=== PATIENT | female | born 1940 | race Hispanic/Latino ===

== ENCOUNTER 2019-01-09 08:41 | Day surgery (SDC) | payer OTHER ==
--- OUTSIDE RECORDS SUMMARY | 2019-01-09 09:07 | XMS REPORT | Clinical Summary ---
:1940 Author Organization [facility] Address [address] [place] [address] Care Team Providers Name Role Phone Samm Mesa MD Primary Care Provider Allergies Active Allergy Reactions Severity Noted Date Comments Propoxyphene Itching High 11/11/2015 Medications Medication Sig Dispensed Refills Start Date End Date Status BONIVA 150 mg tablet TAKE BY MOUTH 1 3 08/20/2018 Active TABLET EVERY MONTH levothyroxine Take 75 mcg by 3 08/11/2018 Active (SYNTHROID, LEVOXYL) mouth daily. 75 mcg tablet BYSTOLIC 10 mg tablet Take 10 mg by 3 08/19/2018 Active mouth daily. omeprazole (PriLOSEC) Take by mouth 3 08/19/2018 Active 40 MG capsule daily. triamcinolone APPLY TO AFFECTED 2 08/29/2018 Active (KENALOG) 0.5 % cream AREA TWICE A DAY venlafaxine XR Take 75 mg by 3 09/24/2018 Active (EFFEXOR-XR) 75 MG 24 mouth daily. hr capsule bimatoprost (LUMIGAN) Administer 1 drop 0 Active 0.01 % ophthalmic to both eyes drops nightly. timolol (BETIMOL) 0.5 Administer 1 drop 10 mL 2 10/15/2018 Active % ophthalmic solution to both eyes 2 (two) times a day. Active Problems Problem Noted Date Primary open angle glaucoma (POAG) of both eyes, moderate stage 10/15/2018 Ileus, postoperative 11/17/2015 Abdominal pain 11/11/2015 Parastomal hernia with obstruction and without gangrene 11/11/2015 Electrolyte and fluid disorder 11/11/2015 Encounters Date Type Specialty Care Team Description 10/15/2018 Office Visit Ophthalmology Carrie Figueroa, Primary open angle glaucoma (POAG) of both eyes, moderate stage; Primary open angle glaucoma of both eyes, unspecified glaucoma stage after 01/08/2018 Social History Tobacco Use Types Packs/Day Years Used Date Never Smoker Smokeless Tobacco: Never Used Tobacco Cessation: Counseling Given: No Alcohol Use Drinks/Week oz/Week Comments Yes 2 Glasses of wine 1.2 Sex Assigned at Date Recorded Not on file Job Start Date Occupation Industry Not on file Not on file Not on file Travel History Travel Start Travel End No recent travel history available. Last Filed Vital Signs Not on file Plan of Treatment Health Maintenance Due Date Last Done Comments SHINGLES VACCINES (#1) 1988 65+ PNEUMOCOCCAL VACCINE (1 of 2 - PCV13) 10/25/2003 INFLUENZA VACCINE 12/27/2018 Implants Implanted - Out Type Area Banking Assistant Device Identifier Shelf Expiration Model / of Service Date Serial / Lot None Procedures Procedure Name Priority Date/Time Associated Diagnosis Comments OCT, OPTIC NERVE - Routine 10/15/2018 10:35 AM Primary open angle Results for this OU - BOTH EYES CDT glaucoma (POAG) of procedure are in both eyes, moderate the results stage section. AUTOMATED VISUAL Routine 10/15/2018 10:35 AM Primary open angle Results for this FIELD, EXTENDED - CDT glaucoma of both procedure are in OU - BOTH EYES eyes, unspecified the results glaucoma stage section. after 01/08/2018 Results OCT, Optic Nerve - OU (10/15/2018 10:35 AM CDT) Specimen Narrative Performed At Right Eye Reliability was good. Temporal thickness was normal. Superior thickness was normal. Nasal thickness was normal. Inferior thickness was showing abnormal thinning. Left Eye Reliability was good. Temporal thickness was normal. Superior thickness was normal. Nasal thickness was normal. Inferior thickness was normal. Automated Visual Field, Extended - OU (10/15/2018 10:35 AM CDT) Specimen Narrative Performed At Right Eye Threshold was 24-2. Strategy was PEPE. Findings include superior arcuate defect. Left Eye Threshold was 24-2. Strategy was PEPE. Findings include superior arcuate defect. Notes Possible lid defect OU after 01/08/2018 Insurance Payer Benefit Plan / Subscriber ID Effective Dates Phone Address Type Group MEDICARE MEDICARE PART A AND xxxxxxxxxxx 2003-[place], [place] Medicare B t AETNA AETNA [facility] xxxxxxxxxx 2002-[place] oneal Advance Directives Patient has advance care planning documents on file. For more information, please contact:Jeyson Thakkar[address] [place] [address]
--- OUTSIDE RECORDS SUMMARY | 2019-01-09 09:08 | XMS REPORT | Continuity of Care Document ---
:1940 Author Organization [employer] Care Team Providers Name Role Phone [employer] Unavailable Unavailable Problems Problem Status Onset Classification Date Comments Source Date Reported DDC - F/UP AB Active [facility] DDC-EGD Active [address] ABDMNAL PAIN Active [facility] ABDMNAL PAIN Active [facility] ROUTINE MEDICAL Active [facility] Medications No Data Provided for This Section Allergies, Adverse Reactions, Alerts No Known Medication Allergies Immunizations No Data Provided for This Section Results No Data Provided for This Section Pathology Reports No Data Provided for This Section Diagnostic Reports No Data Provided for This Section Consultation Notes No Data Provided for This Section Discharge Summaries No Data Provided for This Section History and Physicals No Data Provided for This Section Vital Signs No Data Provided for This Section Encounters Location Location Encounter Encounter Reason Attending ADM DC Status Source Details Type Number For Provider Date Date Visit [facility] Outpatient [id number] DDC-EGD [place] 09/28 09/28 Active [facility] Outpatient [id number] DDC - [place] 10/11 Active [facility] Medical F/UP AB [facility] PAIN Center [facility] Outpatient [id number] DDC - [place] 12/19 Active [facility] Medical F/UP AB [facility] PAIN Center Procedures No Data Provided for This Section Assessment and Plan No Data Provided for This Section Plan of Care No Data Provided for This Section Social History No Data Provided for This Section Family History No Data Provided for This Section Advance Directives No Data Provided for This Section Functional Status No Data Provided for This Section
[2019-01-09] MEDS ORDERED: Ringers Lactate 1,000 ML IV ONE (09:11)
[2019-01-09] MEDS ORDERED: NA CHLORIDE 0.9% 1,000 ML ONE (09:52)
[2019-01-09] MEDS ORDERED: FENTANYL CITR 100 MCG/2 ML ONE (09:55)
[2019-01-09] MEDS ORDERED: PROPOFOL 200 MG/20 ML VIAL IV ONE (09:55)
[2019-01-09] MEDS ORDERED: LIDOCAINE 2% MPF 5 ML VIAL ONE (09:55)
[2019-01-09] MEDS: LIDOCAINE 1% W/EPI 1:100,000 MDV 20 ML VIAL ONE ×2 (09:57→10:24)
[2019-01-09 12:57] VITALS: BP 150/65
[2019-01-09 13:27] VITALS: TEMP 98; O2SAT 98
--- NOTE | 2019-01-10 04:44 | OP ---
Date of Procedure: 01/09/2019 Surgeon: Meka Bolivar MD [employer] Heater: No assistants. Preoperative Diagnosis: Postmenopausal bleeding and thickened endometrium. Postoperative Diagnosis: Postmenopausal bleeding. Procedures Performed: Hysteroscopy and endometrial sampling. Complications: None. Drains: None. Anesthesia: MAC and cervical block. Findings: Endometrial cavity was completely empty. Endometrium appeared to be unremarkable and thin . Endometrial sampling or D and C was performed with the help of an endometrial biopsy Pipelle, as I was not able to dilate the cervix enough to perform a curettings with even a 0 curette. The cervix appeared to be extremely high. She is status post colpopexy and posterior repair. The cervix was no t only stenotic, but curved enough that I was unable to dilate her safely. Patient is an 78-year-old with postmenopausal bleeding, referred to me for evaluation. An ultrasound showed thickened endometrium. She had medical clearance for performance of this procedure. We were able to consent her for a hysteroscopy, and D and C. It was extremely difficult to even perform an adequate exam in the office with this patient most likely due to her atrophic condition, stenotic cer vix, and also a good pelvic floor support. After informed consent was verified in the preop, she was taken back to the OR, placed in a supine fa shion on the operating table. MAC was given. She was placed in a dorsal lithotomy position. After she was placed in dorsal lithotomy using Jose Manuel stirrups, pelvic exam performed. The point C was at - 7. The opening of the vaginal introitus about 2-3 cm. So a Taylor speculum was placed. It was diffic ult to find and hold the cervix. So a long Whipple was used after exposing the cervix, anterior li p injected with 1% lidocaine mixed with 1:100,000 epinephrine 10 mL. Anterior lip grasped with a sin gle-tooth tenaculum. Then, a SlimLine diagnostic hysteroscope, 30-degree lens normal saline was used for distention. After passing through the cervical canal under direct vision, uterine cavity was en tered. This was curved as it dipped down and was anteflexed. The cavity completely unremarkable, no intracavitary lesions, both tubal ostia visualized, scope was pulled out, attempt was made to dilate this patient, it was extremely difficult due to the angle of the vaginal canal and then the cervical canal. After attempting to dilate it, I only was successful to open it to 7-Vincentian. So at this poi nt, I decided that sampling is important. After letting aspirating the fluid, I was able to put in a n endometrial biopsy Pipelle as the 0 curette would not fit and/or it would not negotiate the curve. The Pipelle was used to perform endometrial sampling and once this was done, all that was scanned. This was all I could get after 3 passes. This was handed out for permanent pathology. Instruments w ere removed. Instrument, needle, and sponge counts were done and were correct at the end of the case . Patient tolerated the procedure well. She was recovered from anesthesia in the OR and taken to [facility] in stable condition. She has a 1 week followup. If the biopsy is negative, then I would consider that. Her reason for postmenopausal bleeding is either vaginal atrophy or any atrophic endometrium. Both benign causes and no further investigation at this time. No pyometra was suspected even on en try into the uterine cavity. TIFFANY/TATI Voice ID: [id number] Report ID: [id number]
== END 2019-01-09 13:45 | disposition home or self-care (01) ==
LOC: OR 08:41
PROVIDERS: ATTEND Obstetrics & Gynecology
PROC: 0UJD8ZZ Inspection of Uterus and Cervix, Via Natural or Artificial Opening Endoscopic (ICD-10-PCS; 2019-01-09)
PROC: 0UDB7ZX Extraction of Endometrium, Via Natural or Artificial Opening, Diagnostic (ICD-10-PCS; principal; 2019-01-09 10:30)
DX: N95.0 Postmenopausal bleeding (principal); N88.2 Stricture and stenosis of cervix uteri; R93.89 Abnormal findings on diagnostic imaging of other specified body structures; I10 Essential (primary) hypertension; E78.00 Pure hypercholesterolemia, unspecified; K21.9 Gastro-esophageal reflux disease without esophagitis; E07.9 Disorder of thyroid, unspecified; M19.90 Unspecified osteoarthritis, unspecified site; F32.9 Major depressive disorder, single episode, unspecified; Z85.038 Personal history of other malignant neoplasm of large intestine; Z86.73 Personal history of transient ischemic attack (TIA), and cerebral infarction without residual deficits
CPT/HCPCS: 88305; 58558; J2704; J3010; J7030

== ENCOUNTER 2019-06-15 10:25 | Emergency (ER) | payer OTHER ==
--- NOTE | 2019-06-15 12:29 | RAD REPORT ---
EXAM DESCRIPTION: RAD - Hip Left 2 View - 06/15/2019 12:21 pm CLINICAL HISTORY: PAIN COMPARISON: Hip Left 2 View dated 03/20/2009 FINDINGS: Mild osteoarthritis involves the left hip. No evidence of fracture, dislocation or AVN.
--- NOTE | 2019-06-15 13:02 | ER ---
Nurse's Notes [facility] Name: Ambar Jay Age: 78 yrs Sex: Female : 1940 Arrival Date: 06/15/2019 Time: 10:28 Bed 27 Private MD: Diagnosis: Other specified arthritis, left hip Presentation: 06/15 10:40 Presenting complaint: Patient states: left hip started hurting , denies injury, iw can hardly walk now. Transition of care: patient was not received from another setting of care. Onset of symptoms was June 13, 2019. Risk Assessment: Do you want to hurt yourself or someone else? Patient reports no desire to harm self or others. Initial Sepsis Screen: Does the patient meet any 2 criteria? No. Patient's initial sepsis screen is negative. Does the patient have a suspected source of infection? No. Patient's initial sepsis screen is negative. Care prior to arrival: None. 10:40 Method Of Arrival: Wheelchair iw 10:40 Acuity: ANTWAN 4 iw Historical: - Allergies: 10:43 Darvon; iw - Home Meds: 10:43 Bystolic 10 mg Oral tab 1 tab twice a day [Active]; levothyroxine 75 mcg tab 1 tab once iw daily [Active]; Nexium 40 mg Oral cpDR 1 cap once daily [Active]; venlafaxine 75 mg oral tab 1 tab 2 times per day [Active]; Boniva 150 mg Oral tab 1 tab once moly [Active]; eye drops [Active]; - PMHx: 10:43 colon cancer; Depression; GERD; Glaucoma; Hypertension; Hypothyroidism; iw - PSHx: 10:43 Colostomy(2007); Hernia repair; colostomy moved; iw - Immunization history:: Adult Immunizations Adult Immunizations up to date. - Social history:: Smoking status: Patient denies any tobacco usage or history of. Patient/guardian denies using alcohol, street drugs, The patient lives with family. - Ebola Screening: : Patient negative for fever greater than or equal to 101.5 degrees Fahrenheit, and additional compatible Ebola Virus Disease symptoms Patient denies exposure to infectious person Patient denies travel to an Ebola-affected area in the 21 days before illness onset No symptoms or risks identified at this time. - Family history:: not pertinent. Screenin:30 Abuse screen: Denies threats or abuse. Denies injuries from another. Nutritional aj1 screening: No deficits noted. Tuberculosis screening: No symptoms or risk factors identified. 13:41 Fall Risk None identified. aj1 Assessment: 11:30 General: Appears in no apparent distress. uncomfortable, Behavior is calm, cooperative, aj1 appropriate for age. Pain: Complains of pain in left hip and left leg. Neuro: Level of Consciousness is awake, alert, obeys commands. Cardiovascular: Patient's skin is warm and dry. Respiratory: Airway is patent Respiratory effort is even, unlabored, Respiratory pattern is regular, symmetrical. GI: No signs and/or symptoms were reported involving the gastrointestinal system. : No signs and/or symptoms were reported regarding the genitourinary system. EENT: No signs and/or symptoms were reported regarding the EENT system. Derm: No signs and/or symptoms reported regarding the dermatologic system. Skin is pink, warm \T\ dry. normal. Musculoskeletal: Range of motion: limited in left hip. 12:30 Reassessment: Patient appears in no apparent distress at this time. No changes from aj1 previously documented assessment. Patient and/or family updated on plan of care and expected duration. Pain level reassessed. Patient is alert, oriented x 3, equal unlabored respirations, skin warm/dry/pink. 13:15 Reassessment: Patient appears in no apparent distress at this time. No changes from aj1 previously documented assessment. Patient and/or family updated on plan of care and expected duration. Pain level reassessed. Patient is alert, oriented x 3, equal unlabored respirations, skin warm/dry/pink. Vital Signs: 10:43 BP 126 / 69; Pulse 77; Resp 16; Temp 97.8; Pulse Ox 99% on R/A; Weight 63.5 kg; Height iw 5 ft. (152.40 cm); Pain 7/10; 10:43 Body Mass Index 27.34 (63.50 kg, 152.40 cm) iw ED Course: 10:28 Patient arrived in ED. rg4 10:41 Triage completed. iw 10:43 Arm band placed on. iw 11:25 Scott Diaz MD is Attending Physician. ma2 11:30 Patient has correct armband on for positive identification. Bed in low position. Call aj1 light in reach. 11:30 No provider procedures requiring assistance completed. aj1 12:22 Hip Left 2 View XRAY In Process Unspecified. EDMS 12:56 Rosa Travis, RN is Primary Nurse. aj1 13:41 Patient did not have IV access during this emergency room visit. aj1 Administered Medications: 13:15 Drug: TORadol 60 mg Route: IM; Site: left gluteus; aj1 Outcome: 13:01 Discharge ordered by . dandy 13:41 Discharged to home via wheelchair, with family. aj1 13:41 Condition: good 13:41 Discharge instructions given to patient, family, Instructed on discharge instructions, follow up and referral plans. no drinking with medication, no driving heavy equipment, medication usage, Demonstrated understanding of instructions, follow-up care, medications, Prescriptions given X 2. 13:41 Patient left the ED. aj1 Signatures: Dispatcher [employer] EDNY Rosa Travis, RN HÉCTOR aj1 Bailey York RN RN iw Garcia, Rubi rg4 Scott Diaz MD MD ma2
--- NOTE | 2019-06-15 13:02 | EDPHYS ---
Physician Documentation [facility] Name: Ambar Jay Age: 78 yrs Sex: Female : 1940 Arrival Date: 06/15/2019 Time: 10:28 Bed 27 Private MD: ED Physician Scott Diaz HPI: 06/15 12:55 This 78 yrs old Female presents to ER via Wheelchair with complaints of Hip ma2 Pain. 12:55 The patient or guardian reports pain. The complaints affect the left leg. Onset: The ma2 symptoms/episode began/occurred gradually, 1 week(s) ago. Severity of symptoms: At their worst the symptoms were mild, in the emergency department the symptoms are unchanged. The patient has not experienced similar symptoms in the past. Historical: - Allergies: 10:43 Darvon; iw - Home Meds: 10:43 Bystolic 10 mg Oral tab 1 tab twice a day [Active]; levothyroxine 75 mcg tab 1 tab once iw daily [Active]; Nexium 40 mg Oral cpDR 1 cap once daily [Active]; venlafaxine 75 mg oral tab 1 tab 2 times per day [Active]; Boniva 150 mg Oral tab 1 tab once moly [Active]; eye drops [Active]; - PMHx: 10:43 colon cancer; Depression; GERD; Glaucoma; Hypertension; Hypothyroidism; iw - PSHx: 10:43 Colostomy(2007); Hernia repair; colostomy moved; iw - Immunization history:: Adult Immunizations Adult Immunizations up to date. - Social history:: Smoking status: Patient denies any tobacco usage or history of. Patient/guardian denies using alcohol, street drugs, The patient lives with family. - Ebola Screening: : Patient negative for fever greater than or equal to 101.5 degrees Fahrenheit, and additional compatible Ebola Virus Disease symptoms Patient denies exposure to infectious person Patient denies travel to an Ebola-affected area in the 21 days before illness onset No symptoms or risks identified at this time. - Family history:: not pertinent. ROS: 12:55 Constitutional: Negative for fever, chills, and weight loss. ma2 12:55 All other systems are negative. Exam: 12:55 Constitutional: This is a well developed, well nourished patient who is awake, alert, ma2 and in no acute distress. Chest/axilla: Normal chest wall appearance and motion. Nontender with no deformity. No lesions are appreciated. Cardiovascular: Regular rate and rhythm with a normal S1 and S2. No gallops, murmurs, or rubs. Normal PMI, no JVD. No pulse deficits. Respiratory: Lungs have equal breath sounds bilaterally, clear to auscultation and percussion. No rales, rhonchi or wheezes noted. No increased work of breathing, no retractions or nasal flaring. Abdomen/GI: Soft, non-tender, with normal bowel sounds. No distension or tympany. No guarding or rebound. No evidence of tenderness throughout. MS/ Extremity: Pulses equal, no cyanosis. Neurovascular intact. Full, normal range of motion. 12:55 Neuro: Awake and alert, GCS 15, oriented to person, place, time, and situation. ma2 Cranial nerves II-XII grossly intact. Motor strength 5/5 in all extremities. Sensory grossly intact. Cerebellar exam normal. Normal gait. Vital Signs: 10:43 BP 126 / 69; Pulse 77; Resp 16; Temp 97.8; Pulse Ox 99% on R/A; Weight 63.5 kg; Height iw 5 ft. (152.40 cm); Pain 7/10; 10:43 Body Mass Index 27.34 (63.50 kg, 152.40 cm) iw MDM: 11:25 Patient medically screened. ma2 12:55 Differential diagnosis: femoral shaft fracture, bursitis, arthritis, arthritis of hip. ma2 12:55 Data reviewed: vital signs, nurses notes, radiologic studies. Counseling: I had a ma2 detailed discussion with the patient and/or guardian regarding: the historical points, exam findings, and any diagnostic results supporting the discharge/admit diagnosis, the presence of at least one elevated blood pressure reading (>120/80) during this emergency department visit, the need for outpatient follow up. Response to treatment: the patient's symptoms have markedly improved after treatment. 06/15 11:27 Order name: Hip Left 2 View XRAY; Complete Time: 12:40 ma2 Administered Medications: 13:15 Drug: TORadol 60 mg Route: IM; Site: left gluteus; aj1 Disposition: 06/15/19 13:01 Discharged to Home. Impression: Other specified arthritis, left hip. - Condition is Stable. - Discharge Instructions: Arthritis. - Prescriptions for Tylenol- Codeine #3 300-30 mg Oral Tablet - take 2 tablet by ORAL route every 6 hours As needed; 30 tablet. Medrol (Evaristo) 4 mg Oral Tablets, Dose Pack - take 1 tablet by ORAL route as directed - follow package instructions; 1 packet. - Medication Reconciliation Form, Thank You Letter, Antibiotic Education, Prescription Opioid Use form. - Follow up: Private Physician; When: Today; Reason: If symptoms return, Continuance of care. Signatures: Dispatcher [employer] EDRosa Leal RN RN aj1 Bailey York RN RN iw Scott Diaz MD MD ma2 Corrections: (The following items were deleted from the chart) 13:41 13:01 06/15/2019 13:01 Discharged to Home. Impression: Other specified arthritis, left aj1 hip. Condition is Stable. Forms are Medication Reconciliation Form, Thank You Letter, Antibiotic Education, Prescription Opioid Use. Follow up: Private Physician; When: Today; Reason: If symptoms return, Continuance of care. ma2
[2019-06-15] MEDS ORDERED: KETOROLAC 30 MG/ML INJ ONE (13:15)
[2019-06-15 13:46] VITALS: BP 126/69; TEMP 97.8; O2SAT 99
== END 2019-06-15 13:41 | disposition home or self-care (01) ==
LOC: ER 10:25
DX: M13.852 Other specified arthritis, left hip (principal); I10 Essential (primary) hypertension; E03.9 Hypothyroidism, unspecified; K21.9 Gastro-esophageal reflux disease without esophagitis; F32.9 Major depressive disorder, single episode, unspecified; Z85.038 Personal history of other malignant neoplasm of large intestine; Z88.8 Allergy status to other drugs, medicaments and biological substances
CPT/HCPCS: 96372; 99283

== ENCOUNTER 2019-11-30 12:24 | Inpatient (IN) | payer OTHER ==
--- OUTSIDE RECORDS SUMMARY | 2019-11-30 12:27 | XMS REPORT | Clinical Summary ---
:1940 Author Organization [facility] Address [address] [place] [address] Care Team Providers Name Role Phone MD Bonita Primary Care Provider Allergies Active Allergy Reactions Severity Noted Date Comments Propoxyphene Itching High 11/11/2015 Medications Medication Sig Dispensed Refills Start Date End Date Status BONIVA 150 mg TAKE BY MOUTH 1 3 08/20/2018 Active tablet TABLET EVERY MONTH levothyroxine Take 75 mcg by 3 08/11/2018 Active (SYNTHROID, mouth daily. LEVOXYL) 75 mcg tablet BYSTOLIC 10 mg Take 10 mg by 3 08/19/2018 Active tablet mouth daily. omeprazole Take by mouth 3 08/19/2018 Acti ve (PriLOSEC) 40 MG daily. capsule triamcinolone APPLY TO 2 08/29/2018 Activ e (KENALOG) 0.5 % AFFECTED AREA cream TWICE A DAY venlafaxine XR Take 75 mg by 3 09/24/2018 Active (EFFEXOR-XR) 75 MG mouth daily. 24 hr capsule bimatoprost Administer 1 0 Activ e (LUMIGAN) 0.01 % drop to both ophthalmic drops eyes nightly. timolol (TIMOPTIC) INSTILL 1 DROP 30 mL 0 01/17/2019 Active 0.5 % ophthalmic TO BOTH EYES 2 solution TIMES A DAY timolol (BETIMOL) Administer 1 10 mL 2 10/15/2018 01/18/20 Discontinued 0.5 % ophthalmic drop to both 19 (Reorder) solution eyes 2 (two) times a day. Active Problems Problem Noted Date Primary open angle glaucoma (POAG) of both eyes, moder ate stage 10/15/2018 Ileus, postoperative 11/17/2015 Abdominal pain 11/11/2015 Parastomal hernia with obstruction and without gangren e 11/11/2015 Electrolyte and fluid disorder 11/11/2015 Encounters Date Type Specialty Care Team Description 01/17/2019 Refill Ophthalmology Figueroa, Carrie Claros MD after 11/29/2018 Social History Tobacco Use Types Packs/Day Years Used Date Never Smoker Smokeless Tobacco: Never Used Tobacco Cessation: Counseling Given: No Alcohol Use Drinks/Week oz/Week Comments Yes 2 Glasses of wine 2.0 Sex Assigned at Date Recorded Not on [...] of 2 - PCV13) 10/25/2003 INFLUENZA VACCINE 12/28/2019 Implants Implanted - Out Type Area Last Model Maker Device Identifier She lf Expiration Model / of Service Date Serial / Lot None Results Not on fileafter 11/29/2018 Insurance Payer Benefit Plan / Subscriber ID Effective Dates Phone Addre ss Type Group MEDICARE MEDICARE PART A AND xxxxxxxxxxx 2003-[place] [facility], [place] Medicare B t AETNA AETNA [facility] xxxxxxxxxx 2002-[place] Indemnity INDEMNITY t Advance Directives For more information, please contact: [phone] Type Date Recorded 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
--- OUTSIDE RECORDS SUMMARY | 2019-11-30 12:27 | XMS REPORT | Continuity of Care Document ---
:1940 Author Organization [employer] Care Team Providers Name Role Phone [employer] Unavailable Un available Problems Problem Status Onset Classification Date Comments Sourc e Date Reported DDC - F/UP AB Active [facility] DDC-EGD Active [address] ABDMNAL PAIN Active [facility] ROUTINE MEDICAL Active [facility] ABDMNAL PAIN Active [facility] Medications No Data Provided for This Section [...] Location Location Encounter Encounter Reason Attending ADM PA Stat us Source Details Type Number For Provider Date Date Visit [facility] Outpatient [id number] DDC-EGD [place] 09/28 09/28 [facility] Outpatient [id number] DDC - [place] 10/11 Activ e [facility] Medical F/UP AB [facility] Outpatient [id number] DDC - [place] 12/19 Activ e [facility] Medical F/UP AB [facility] Procedures No Data Provided [...]
--- NOTE | 2019-11-30 13:44 | RAD REPORT ---
EXAM DESCRIPTION: RAD - Chest Single View - 11/30/2019 1:35 pm CLINICAL HISTORY: generalized weakness Chest pain. COMPARISON: Chest Pa And Lat (2 Views) dated 11/01/2018; Chest Pa And Lat (2 Views) dated 05/11/2017; CHEST SINGLE VIEW dated 08/29/2013; CHEST SINGLE VIEW dated 08/04/2008 FINDINGS: Portable technique limits examination quality. The lungs are grossly clear. The heart is normal in size. No displaced fractures. IMPRESSION: No acute intrathoracic process suspected.
[2019-11-30 14:02] LABS: Absolute Lymphocytes (CBC) 0.6 K/uL (0.7-4.9); Basophils % 0.3 % (0-1.3); Lymphocytes % 9.8 % (15.3-44.8); MPV 10.2 fL (7.6-11.3); RBC Red Blood Cell Count 4.37 M/uL (3.86-4.86)
[2019-11-30] MEDS ORDERED: NA CHLORIDE 0.9% 1,000 ML ONE (14:21)
[2019-11-30] MEDS ORDERED: ACETAMINOPHEN 325 MG TABLET ONE (14:21)
[2019-11-30 14:35] LABS: Albumin 4.3 g/dL (3.4-5.0); Bilirubin Total 0.4 mg/dL (0.2-1.0); Protein, Total 9.1 g/dL (6.4-8.2)
[2019-11-30 14:37] LABS: Potassium 5.6 mmol/L (3.5-5.1)
--- NOTE | 2019-11-30 15:47 | RAD REPORT ---
EXAM DESCRIPTION: CT - Abdomen Pelvis Wo Contrast - 11/30/2019 3:36 pm CLINICAL HISTORY: Abdominal pain. dehydration, acute kidney injury COMPARISON: Abdomen Pelvis W Contrast dated 11/11/2015; Lumbar Spine Wo Con dated 07/12/2019 TECHNIQUE: CT imaging of the abdomen and pelvis was performed without contrast. Solid organ, bowel a nd vascular assessment is limited due to lack of IV and oral contrast. All CT scans are performed using dose optimization technique as appropriate and may include automated exposure control or mA/KV adjustment according to patient size. FINDINGS: The lower lung nuñez are clear.Cholecystectomy clips. The liver, spleen, pancreas, adrenal glands and kidneys are within normal limits for a limited non-co ntrast examination. No bowel obstruction, free air, free fluid or abscess. Left lower quadrant ostomy noted. Right hemico lectomy changes are present. Mild compression deformity of superior endplate of L2 is noted with sclerosis, likely subacute or chr onic.Moderate lumbosacral degenerative changes. IMPRESSION: No acute intra-abdominal or pelvic findings. A limited non-contrast examination was performed as detailed.
[2019-11-30 16:14] LABS: Urine Blood NEGATIVE (NEG); Urine Glucose NEGATIVE (NEG); Urine Protein 2+ (NEG); Urine Specific Gravity 1.025 (1.005-1.030); Urine pH 5.5 (5.0-7.0)
[2019-11-30 16:16] LABS: Urine Bacteria 20-50 /HPF (<20); Urine Culture Reflex Order REFLEXED; Urine RBC NONE SEEN /HPF (NONE SEEN)
--- NOTE | 2019-11-30 16:32 | EDPHYS ---
Physician Documentation [facility] Name: Ambar Jay Age: 79 yrs Sex: Female : 1940 Arrival Date: 11/30/2019 Time: 12:26 Bed External Waiting [facility] MD: ED Physician Scott Diaz HPI: 11/29 13:15 This 79 yrs old Female presents to ER via EMS with complaints of General pm1 Weakness. 13:15 The patient's problem is reported as weakness, that is generalized. Onset: The pm1 symptoms/episode began/occurred 2-3 days. Context: Possible contributing factors include: sore throat with decreased PO fluid and food intake. The symptoms are alleviated by nothing. The symptoms are aggravated by nothing. Associated signs and symptoms: Pertinent positives: cramping to bilateral legs from thighs to calves for the past 2-3 days. Generalized weakness and pain to bilateral legs for multiple months, Pertinent negatives: cough, shortness of breath, N/V/D, abdominal pain. Patient's baseline: Neuro: alert and fully oriented, Motor: no deficits, Speech: normal. The patient has not recently seen a physician, the patient's primary care provider is Dr. Mesa. Historical: - Allergies: 12:32 Darvon; dm5 - PMHx: 12:32 colon cancer; Depression; GERD; Glaucoma; Hypertension; Hypothyroidism; dm5 - PSHx: 12:32 Colostomy(2007); Hernia repair; colostomy moved; dm5 - Immunization history:: Adult Immunizations up to date. - Social history:: Smoking status: unknown. ROS: 13:15 Cardiovascular: Negative for chest pain, palpitations, and edema, Respiratory: Negative pm1 for shortness of breath, cough, wheezing, and pleuritic chest pain, Abdomen/GI: Negative for abdominal pain, nausea, vomiting, diarrhea, and constipation, Back: Negative for injury and pain. 13:15 Skin: Negative for injury, rash, and discoloration, Neuro: Negative for headache, weakness, numbness, tingling, and seizure. 13:15 Constitutional: Positive for poor PO intake, Generalized weakness, Negative for body aches, fever. 13:15 ENT: Positive for sore throat, Negative for ear pain, difficulty swallowing, difficulty handling secretions, hoarseness. 13:15 MS/extremity: Positive for pain, of the right leg and left leg, cramping. Exam: 15:48 Radiologist reports: Negative for acute findings pm1 17:01 Constitutional: This is a well developed, well nourished patient who is awake, alert, pm1 and in no acute distress. Head/Face: Normocephalic, atraumatic. Chest/axilla: Normal chest wall appearance and motion. Nontender with no deformity. No lesions are appreciated. 17:01 Back: No spinal tenderness. No costovertebral tenderness. Full range of motion. MS/ Extremity: Pulses equal, no cyanosis. Neurovascular intact. Full, normal range of motion. 17:01 Cardiovascular: Exam negative for acute changes, Rate: normal, Rhythm: regular, Pulses: no pulse deficits are appreciated. 17:01 Respiratory: Exam negative for acute changes, respiratory distress, shortness of breath. 17:01 Abdomen/GI: Exam negative for acute changes, Inspection: abdomen appears normal, Palpation: abdomen is soft and non-tender, in all quadrants, mass, is not appreciated, rebound tenderness, is not appreciated. 17:01 Neuro: Exam negative for acute changes, Orientation: is normal, Mentation: is normal, Motor: is normal, moves all fours. 17:01 Skin: Appearance: normal except for affected area, small skin tear present to distal pm1 right upper arm. Vital Signs: 13:00 BP 135 / 78; Pulse 84; Resp 15; Pulse Ox 98% ; ah 13:30 BP 134 / 68; Pulse 89; Resp 19; Pulse Ox 97% ; ah 14:30 BP 153 / 73; Pulse 84; Resp 18; Pulse Ox 99% ; ah 15:00 BP 151 / 67; Pulse 79; Resp 18; Pulse Ox 100% ; ah 16:31 BP 151 / 67 RA (auto/reg); Pulse 78; Resp 18; Temp 97.8; Pulse Ox 99% on R/A; jp3 17:30 BP 155 / 65; Pulse 76; Resp 18; Pulse Ox 99% ; ah MDM: 13:13 Patient medically screened. pm1 13:15 ED course: Patient with headache, sore throat, decreased appetite and PO intake. Will pm1 make patient PUI. 16:25 Physician consultation: Prabhakar Bhatt MD was called at 16:25, was contacted at 16:25, pm1 regarding admission, patient's condition, and will see patient. 16:27 Data reviewed: vital signs. Data interpreted: Pulse oximetry:. Counseling: I had a pm1 detailed discussion with the patient and/or guardian regarding: the historical points, exam findings, and any diagnostic results supporting the discharge/admit diagnosis, lab results, radiology results, the need for further work-up and treatment in the hospital. 11/29 13:15 Order name: COVID-19; Complete Time: 16:54 pm1 11/29 13:15 Order name: Flu; Complete Time: 14:40 pm1 11/29 13:15 Order name: Strep; Complete Time: 14:45 pm1 11/29 13:15 Order name: Urine Microscopic Only; Complete Time: 16:19 pm1 11/29 13:15 Order name: CBC with Diff; Complete Time: 14:09 pm11/29 13:15 Order name: CMP; Complete Time: 14:39 pm1 11/29 14:11 Order name: Troponin (emerg Dept Use Only); Complete Time: 14:45 pm1 11/29 14:41 Order name: Throat Culture [facility] 11/29 15:57 Order name: Urine Dipstick--Ancillary (enter results); Complete Time: 16:19 em1 11/29 16:18 Order name: Urine Culture [facility] 11/29 17:10 Order name: CBC with Automated Diff [facility] 11/29 17:10 Order name: CBC with Automated Diff [facility] 11/29 17:10 Order name: Comprehensive Metabolic Panel [facility] 11/29 17:10 Order name: Comprehensive Metabolic Panel [facility] 11/29 13:15 Order name: CXR XRAY; Complete Time: 13:45 pm11/29 13:15 Order name: Droplet/Contact Precautions; Complete Time: 14:07 pm11/29 13:15 Order name: Labs collected and sent; Complete Time: 14:07 pm11/29 13:15 Order name: O2 Per Protocol; Complete Time: 14:07 pm11/29 13:15 Order name: Urine Dipstick-Ancillary (obtain specimen); Complete Time: 15:56 pm1 11/29 14:11 Order name: EKG; Complete Time: 14:11 pm11/29 15:19 Order name: CT Abd/Pelvis - Without Contrast; Complete Time: 15:48 pm1 11/29 17:05 Order name: Diet Heart Healthy; Complete Time: 17:06 11/29 17:10 Order name: CONS Pharmacy Consult [facility] 11/29 17:10 Order name: Full Liquid [facility] 11/29 17:21 Order name: UR SODIUM [facility] 11/29 13:15 Order name: IV Saline Lock; Complete Time: 14:07 pm1 11/29 14:11 Order name: EKG - Nurse/Tech; Complete Time: 14:35 pm1 Administered Medications: 14:30 Drug: NS 0.9% 1000 ml Route: IV; Rate: 1000 ml; Site: left antecubital; 21:50 Follow up: Response: No adverse reaction; IV Status: Completed infusion 14:34 Drug: Tylenol 650 mg Route: PO; 15:00 Follow up: Response: No adverse reaction 16:35 Drug: Rocephin 1 grams Route: IV; Rate: calculated rate; Site: left antecubital; 17:35 Follow up: Response: No adverse reaction; IV Status: Completed infusion Disposition: 11/30/19 16:33 Hospitalization ordered by Prabhakar Bhatt for Inpatient Admission. Preliminary diagnosis are Acute kidney injury, Dehydration, Urinary tract infection, site not specified, Weakness. - Bed requested for Telemetry/MedSurg (Inpatient). - Status is Inpatient Admission. dm5 - Condition is Stable. - Problem is new. - Symptoms have improved. Signatures: Dispatcher [facility] Alexandra Woodall RN RN dm5 Thom Shah NP SYSTEMS TECHNOLOGIST pm1 Eusebio Arguelles 3 Izzy De La Fuente, RN RN Corrections: (The following items were deleted from the chart) 16:32 16:31 11/30/2019 16:31 Discharged to Home. Impression: Acute kidney injuryUrinary tract pm1 infection, site not specified; Dehydration. Condition is Stable. Forms are Medication Reconciliation Form, Thank You Letter, Antibiotic Education, Prescription Opioid Use. Follow up: Emergency Department; When: As needed; Reason: Worsening of condition. Follow up: Private Physician; When: 2 - 3 days; Reason: Recheck today's complaints, Continuance of care, Re-evaluation by your physician. Problem is new. Symptoms have improved. pm1 16:33 16:33 Hospitalization Ordered by Prabhakar Bhatt MD for Inpatient Admission. pm1 Preliminary diagnosis is Dehydration; Acute kidney injury; Urinary tract infection, site not specified. Bed requested for Telemetry/MedSurg (Inpatient). Status is Inpatient Admission. Condition is Stable. Problem is new. Symptoms have improved. pm1 16:33 16:33 11/30/2019 16:33 Hospitalization Ordered by Prabhakar Bhatt MD for Inpatient pm1 Admission. Preliminary diagnosis is Acute kidney injuryDehydration; Urinary tract infection, site not specified. Bed requested for Telemetry/MedSurg (Inpatient). Status is Inpatient Admission. Condition is Stable. Problem is new. Symptoms have improved. pm1 17:05 17:01 Back: No spinal tenderness. No costovertebral tenderness. Full range of motion. pm1 Skin: Warm, dry with normal turgor. Normal color with no rashes, no lesions, and no evidence of cellulitis. MS/ Extremity: Pulses equal, no cyanosis. Neurovascular intact. Full, normal range of motion. pm1 17:43 16:33 11/30/2019 16:33 Hospitalization Ordered by Prabhakar Bhatt MD for Inpatient jp3 Admission. Preliminary diagnosis is Acute kidney injuryDehydration; Urinary tract infection, site not specified; Weakness. Bed requested for Telemetry/MedSurg (Inpatient). Status is Inpatient Admission. Condition is Stable. Problem is new. Symptoms have improved. pm1 18:54 17:43 11/30/2019 16:33 Hospitalization Ordered by Prabhakar Bhatt MD for Inpatient dm5 Admission. Preliminary diagnosis is Acute kidney injuryDehydration; Urinary tract infection, site not specified; Weakness. Bed requested for Telemetry/MedSurg (Inpatient). Status is Inpatient Admission. Condition is Stable. Problem is new. Symptoms have improved. jp3
--- NOTE | 2019-11-30 16:32 | ER ---
Nurse's Notes [facility] Name: Ambar Jay Age: 79 yrs Sex: Female : 1940 Arrival Date: 11/30/2019 Time: 12:26 Bed External Waiting Private MD: Diagnosis: Dehydration;Acute kidney injury;Urinary tract infection, site not specified;Weakness Presentation: 11/29 12:28 Chief complaint: EMS states: general weakness, headache, leg cramps, and states that dm5 "can't walk due to weakness". no known exposure to COVID, no cough, no fever, no travel, initial COVID screen negative placed on DP precautions until provider can see pt due to headache. Coronavirus screen: Surgical mask placed on patient. Patient moved to private room, placed in contact and droplet isolation with eye protection until further assessment. Patient denies a cough. Patient denies shortness of breath or difficulty breathing. Patient denies measured and/or subjective temperature greater than 100.4F prior to today's visit. Patient denies travel on a cruise ship or to a country the [facility] currently lists as an affected area. Patient denies contact with known and/or suspected case of COVID-19. Ebola Screen: Patient negative for fever greater than or equal to 101.5 degrees Fahrenheit, and additional compatible Ebola Virus Disease symptoms Patient denies exposure to infectious person. Patient denies travel to an Ebola-affected area in the 21 days before illness onset. No symptoms or risks identified at this time. Initial Sepsis Screen:. Risk Assessment: Do you want to hurt yourself or someone else? Patient reports no desire to harm self or others. Onset of symptoms was November 30, 2019. 12:28 Method Of Arrival: EMS: [facility] dm5 12:28 Acuity: ANTWAN 3 dm5 12:28 Initial Sepsis Screen: Does the patient meet any 2 criteria? No. Patient's initial ah sepsis screen is negative. Does the patient have a suspected source of infection? No. Patient's initial sepsis screen is negative. Historical: - Allergies: 12:32 Darvon; dm5 - PMHx: 12:32 colon cancer; Depression; GERD; Glaucoma; Hypertension; Hypothyroidism; dm5 - PSHx: 12:32 Colostomy(2007); Hernia repair; colostomy moved; dm5 - Immunization history:: Adult Immunizations up to date. - Social history:: Smoking status: unknown. Screenin:00 Abuse screen: Denies threats or abuse. Nutritional screening: No deficits noted. Tuberculosis screening: No symptoms or risk factors identified. Fall Risk None identified. Assessment: 12:30 General: Appears in no apparent distress. Behavior is calm, cooperative, appropriate ah for age. Pain: Complains of pain in achy crampy legs. Neuro: Level of Consciousness is awake, alert, obeys commands, Oriented to person, place, time, situation, Appropriate for age. 12:30 Cardiovascular: Heart tones S1 S2 present Capillary refill < 3 seconds Patient's skin ah is warm and dry. Respiratory: Airway is patent Respiratory effort is even, unlabored. GI:. Derm: Skin has skin tears on right posterior upper arm, cleaned and covered with bandaid. Musculoskeletal: Reports weakness in legs. 13:30 Reassessment: Patient and/or family updated on plan of care and expected duration. Pain ah level reassessed. Patient is alert, oriented x 3, equal unlabored respirations, skin warm/dry/pink. awaiting labs and radiology results. Pt has not been able to give us urine yet. 14:30 Reassessment: Pt medicated for headache at this time. NS fluids started. Pt comfortable ah in bed. Lights off for comfort. No other needs voiced at this time. 15:30 Reassessment: Pt states that her headache is a little better at this time. No other ah needs voiced at this time. 16:34 Reassessment: Gabriel Jay, Son, [phone]. 16:45 Reassessment: Pt was able to give urine specimen in BSC. Rocephin given IVP per MD orders. Pt tolerated well. Informed Pt we are waiting on MD to make decision. Pt voiced understanding. 17:45 Reassessment: Patient and/or family updated on plan of care and expected duration. Pain ah level reassessed. Patient is alert, oriented x 3, equal unlabored respirations, skin warm/dry/pink. Pt given room assignment for admission. Report called to 4th floor. Pt will go when she is finished eating. Vital Signs: 13:00 BP 135 / 78; Pulse 84; Resp 15; Pulse Ox 98% ; ah 13:30 BP 134 / 68; Pulse 89; Resp 19; Pulse Ox 97% ; ah 14:30 BP 153 / 73; Pulse 84; Resp 18; Pulse Ox 99% ; ah 15:00 BP 151 / 67; Pulse 79; Resp 18; Pulse Ox 100% ; ah 16:31 BP 151 / 67 RA (auto/reg); Pulse 78; Resp 18; Temp 97.8; Pulse Ox 99% on R/A; jp3 17:30 BP 155 / 65; Pulse 76; Resp 18; Pulse Ox 99% ; ED Course: 12:26 Patient arrived in ED. dm5 12:31 Thom Shah NP is PHCP. pm1 12:31 Scott Diaz MD is Attending Physician. pm1 12:32 Triage completed. dm5 12:48 Izzy De La Fuente, RN is Primary Nurse. ah 13:00 Patient has correct armband on for positive identification. Bed in low position. Call jp3 light in reach. Side rails up X 1. Warm blanket given. Verbal reassurance given. Pulse ox on. NIBP on. 13:00 Arm band placed on right wrist. ah 13:13 Patient maintains SpO2 saturation greater than 95% on room air. jp3 13:13 Flu and/or RSV swab sent to lab. Strep swab sent to lab. COVID-19 swab sent to lab. jp3 13:25 Inserted saline lock: 20 gauge in left antecubital area, using aseptic technique. Blood jp3 collected. 13:25 Initial lab(s) drawn, by mi, sent to lab. jp3 13:35 CXR XRAY In Process Unspecified. EDMS 14:19 Diet: Patient given water. Tolerated well. jp3 14:36 Notified ED physician of a critical lab result(s). potassium 5.6. dm5 15:36 CT Abd/Pelvis - Without Contrast In Process Unspecified. EDMS 15:36 CT completed. Patient tolerated procedure well. Patient moved back from CT. bq 16:32 Prabhakar Bhatt MD is Hospitalizing Provider. pm1 17:45 No provider procedures requiring assistance completed. Patient admitted, IV remains in place. Administered Medications: 14:30 Drug: NS 0.9% 1000 ml Route: IV; Rate: 1000 ml; Site: left antecubital; 21:50 Follow up: Response: No adverse reaction; IV Status: Completed infusion ah 14:34 Drug: Tylenol 650 mg Route: PO; 15:00 Follow up: Response: No adverse reaction 16:35 Drug: Rocephin 1 grams Route: IV; Rate: calculated rate; Site: left antecubital; 17:35 Follow up: Response: No adverse reaction; IV Status: Completed infusion Outcome: 16:31 Discharge ordered by MD. pm1 16:33 Decision to Hospitalize by Provider. pm1 17:45 Admitted to Med/surg accompanied by tech, via stretcher, with chart, Report called to receiving nurse 17:45 Condition: stable 17:45 Instructed on the need for admit. 18:54 Patient left the ED. dm5 Signatures: Dispatcher [employer] Alexandra Gregorio, RN RN dm5 Amanda Whitney Patrick, JOSÉ MIGUEL ENGINE TESTING SUPERVISOR pm1 Eusebio Arguelles jp3 Jocelyn Butler RN RN Izzy De La Fuente RN RN
[2019-11-30] MEDS ORDERED: CEFTRIAXONE/SWI 1gm 1 GM/10 ML SYR ONE (16:52)
[2019-11-30] MEDS ORDERED: SOD POLYSTYREN SUL 15 GM/60 ML UCUP PO ONE (17:12)
--- NOTE | 2019-11-30 17:21 | P.HP ---
Certification for Inpatient With expected LOS: >2 Midnights Practitioner: I am a practitioner with admitting privileges, knowledge of patient current condition, hospital course, and medical plan of care. Services: Services provided to patient in accordance with Admission requirements found in Title 42 Section 412.3 of the Code of Federal Regulations Patient History Date of Service: 11/30/19 (Hospitalist) Reason for admission: Acute renal failure History of Present Illness: Patient is 79 years of age admitted with headache so throat decreased appetite decreased p.o. intake felt very weak came here to the emergency room was found to be in acute renal failure she denies any fever chills no recent exposure to: Of RS denies any shortness of breath regular doctor is Dr. nancy valdez patient has a lot of arthritis Jona chaves some medication denies taking any nonsteroidals Allergies propoxyphene HCl [From Darvon] Allergy (Verified 01/08/19 09:22) UNK Home Medications: Ascorbic Acid [Vitamin C] 1 tab PO DAILY 08/29/13 Cholecalciferol (Vitamin D3) [Vitamin D] 1 tab PO DAILY 08/29/13 Latanoprost [Xalatan] 1 drop EACH EYE BEDTIME 08/29/13 Levothyroxine [Synthroid*] 1 tab PO DAILY 08/29/13 Multivitamin [One-A-Day Essential] 1 tab PO DAILY 08/29/13 Nebivolol HCl [Bystolic] 1 tab PO NOON 08/29/13 Venlafaxine HCl *Xr* [Effexor XR] 1 tab PO DAILY 08/29/13 Biotin 5 mg PO DAILY 01/08/19 Celecoxib [Celebrex] 200 mg PO DAILY 01/08/19 Ibandronate Sodium [Boniva] 150 mg PO ONCE 01/08/19 Omeprazole [Prilosec] 40 mg PO DAILY 01/08/19 - Past Medical/Surgical History Diabetic: No -: Gerd -: Hypothyroid -: Depression -: Colostomy - Social History Alcohol use: No CD- Drugs: No Caffeine use: Yes Review of Systems 10-point ROS is otherwise unremarkable General: Weakness Physical Examination - Physical Exam General: Alert, Oriented x3 Neck: Supple Cardiovascular: No edema Gastrointestinal: Other (Patient has a colostomy) - Studies Laboratory Data (last 24 hrs) 11/30/19 13:49: Sodium 135 L, Potassium 5.6 H*, BUN 54 H, Creatinine 3.12 H, Glucose 110 H, Total Bilirubin 0.4, AST 21, ALT 24, Alkaline Phosphatase 87 11/30/19 13:49: WBC 6.0, Hgb 14.2, Hct 43.0, Plt Count 176 Microbiology Data (last 24 hrs): 11/30/19 13:40 Nasopharnyx Coronavirus COVID-19 PCR - Final 11/30/19 13:37 Throat Group A Streptococcus Rapid Screen - Final 11/30/19 13:37 Nasopharnyx Influenza Type A Antigen Screen - Final 11/30/19 13:37 Nasopharnyx Influenza Type B Antigen Screen - Final Assessment and Plan - Problems (Diagnosis) (1) Acute renal failure Current Visit: Yes Status: Acute Plan: Patient is 79 years of age admitted with poor intake nausea weaknesses a found to be in acute renal failure patient is acidotic hyperkalemia urinalysis shows 2+ protein urea patient does take Celebrex at home for arthritis admit to the floor after a sound of the kidneys nephrology console IV fluids CT of the abdomen is negative chest is clear hemodynamically stable admit to the floor fraction excretion of sodium IV fluids Qualifiers: Acute renal failure type: unspecified Qualified Code(s): N17.9 - Acute kidney failure, unspecified - Advance Directives Does patient have a Living Will: No Does patient have a Durable POA for Healthcare: No
[2019-11-30 19:57] VITALS: BMI 27.3
[2019-11-30] MEDS: NA CHLORIDE 0.9% 1,000 ML IV SCH (20:32)
[2019-12-01] MEDS: NA CHLORIDE 0.9% 1,000 ML IV SCH ×2 (05:54→14:00)
[2019-12-01 07:10] LABS: Absolute Lymphocytes (CBC) 1.1 K/uL (0.7-4.9); Hematocrit 34.7 % (36.0-45.0); MPV 10.5 fL (7.6-11.3)
[2019-12-01 07:14] LABS: Albumin 3.2 g/dL (3.4-5.0); Bilirubin Total 0.3 mg/dL (0.2-1.0); Potassium 4.5 mmol/L (3.5-5.1); Protein, Total 6.9 g/dL (6.4-8.2)
[2019-12-01 07:59] LABS: Blood Morphology Comment NOT SEEN (NOT SEEN); Platelet Estimate ADEQ
[2019-12-01] MEDS ORDERED: PNEUMOCOCCAL VACCINE 0.5 ML IMVAC ONE (09:00)
--- NOTE | 2019-12-01 09:50 | P.PN ---
Subjective Date of Service: 12/01/19 Chief Complaint: Acute renal failure Subjective: Improving (Patient is doing better in weak) Review of Systems 10-point ROS is otherwise unremarkable General: Weakness Physical Examination - Vital Signs Temperature: 97.6 F Blood Pressure: 126/69 Pulse: 88 Respirations: 16 Pulse Ox (%): 95 - Physical Exam General: Alert, Oriented x3 Neck: Supple Respiratory: Clear to auscultation bilaterally Cardiovascular: No edema Gastrointestinal: Normal bowel sounds, Soft and benign - Studies Laboratory Data (last 24 hrs) 11/30/19 13:49: Sodium 135 L, Potassium 5.6 H*, BUN 54 H, Creatinine 3.12 H, Glucose 110 H, Total Bilirubin 0.4, AST 21, ALT 24, Alkaline Phosphatase 87 11/30/19 13:49: WBC 6.0, Hgb 14.2, Hct 43.0, Plt Count 176 Microbiology Data (last 24 hrs): 11/30/19 13:40 Nasopharnyx Coronavirus COVID-19 PCR - Final 11/30/19 13:37 Throat Group A Streptococcus Rapid Screen - Final 11/30/19 13:37 Nasopharnyx Influenza Type A Antigen Screen - Final 11/30/19 13:37 Nasopharnyx Influenza Type B Antigen Screen - Final Assessment & Plan - Problems (Diagnosis) (1) Acute renal failure Current Visit: Yes Status: Acute Plan: Patient is doing much better renal function is improving awaiting nephrology consult mildly anemic continue with normal saline possible discharge tomorrow Qualifiers: Acute renal failure type: unspecified Qualified Code(s): N17.9 - Acute kidney failure, unspecified
[2019-12-01] MEDS ORDERED: NA CHLORIDE 0.9% 1,000 ML IV ONE (14:00)
[2019-12-01] MEDS: NACHLORIDE 0.45% 1,000 ML IV SCH (14:05)
--- NOTE | 2019-12-01 17:53 | CON ---
Date of Consultation: 12/01/2019 Reason For Consultation: Elevated BUN and creatinine, fluid management. History Of Present Illness: This is a pleasant 79-year-old female with significant past medical hist ory of hypertension, hyperlipidemia, arthritis, colon cancer, status post colostomy and chemoradiatio n back in 2007. Patient came to the hospital because of dizziness, decreased intake, decreased appet ite. Upon arrival to the hospital, found to have elevation in BUN and creatinine. Patient denied an y diarrhea. Denied any cough, any shortness of breath. Patient admits that she been taking a non-steroidal for the last few month, 1 every other day and leighton bacon increased her vitamin D dosage the last few days. Upon arrival to the hospital, lab show creatinine of 3.1, with hyperkalemia 5.6. For that reason, we have been consulted. Patient was started on aggressive hydration, creatinine down to 2, GFR 22. Hy perkalemia has been resolved. Past Medical History: Include: 1.Hypertension. 2.Arthritis. 3.Vitamin D deficiency. Medications: Home medications include vitamin C, cholecalciferol, levothyroxine, multivitamin, venla faxine, Bystolic, Biotin, Celebrex, bovina, omeprazole. Past Surgical History: Include colostomy with resection of the colon. Family History: Positive for hypertension. Social History: Denies smoking. Denies drinking. Denies drugs abuse. Review of Systems: Head and Neck: No red eye. No ear pain. GI: No diarrhea. No nausea. No vomiting. Decreased intake. : No polyuria. No dysuria. No hematuria. 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 Respiratory: No shortness of breath. Cardiovascular: No chest pain. Endocrine: No polydipsia. Skin: No rash. Neuro: Has dizziness. Musculoskeletal: Generalized fatigue. Physical Examination: Vital Signs: When I saw the patient, blood pressure of 126/69, pulse of 88, afebrile. Chest: Clear to auscultation. Heart: S1, S2 regular. Abdomen: Soft, nontender. Colostomy bag. Extremities: No edema. Neuro: Alert, nonfocal. Laboratory Data: Upon presentation, sodium 135, potassium 5.6, bicarb 16, BUN 54, creatinine 3.1. C urrently, sodium 141, potassium 4.5, bicarb 15, BUN 49, creatinine 2.1, GFR 22, calcium of 8.1. WBC 4.2, H and H 11.4/34.7. CT abdomen and pelvis, no hydronephrosis. Assessment And Plan: 1.Acute kidney injury multifactorial secondary to cervical intraepithelial neoplasia, secondary to n onsteroidal use including Celebrex and Advil superimposed with prerenal, complicated with acidosis an d hyperkalemia, looked to me still on the dry side. I am going to continue on the hydration. I am g oing to change IV fluid to LR, and we will follow up the patient. 2.Acidosis secondary to renal failure. 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 3.Hyperkalemia secondary to renal failure, resolved. 4.Anemia of chronic kidney disease, stable. We will monitor. 5.Hypertension, controlled, optimal. Continue current medication. We will keep hydrating the patie nt. Thank you Dr. Bhatt for allowing us to participate in the care of your patient. DELFINO Voice ID: [id number] Report ID: [id number]
--- NOTE | 2019-12-01 21:01 | RAD REPORT ---
EXAM DESCRIPTION: US - Renal Ultrasound-Complete - 12/01/2019 7:59 pm CLINICAL HISTORY: NANCY COMPARISON: Abdomen Pelvis Wo Contrast dated 11/30/2019 FINDINGS: The right kidney measures 10.1 x 4.5 x 4.8 cm. The left kidney measures 10.3 x 4.1 x 3.9 cm. Cortical thickness is normal. Echogenicity is increased for both kidneys. No hydronephrosis or cast spicious renal mass. Small bilateral renal cysts are present up to 15 mm in maximum size. Bladder was not adequately visualized. IMPRESSION: No hydronephrosis or suspicious renal mass. Increased echogenicity is present in each kidney suspected to be medical renal disease rather than claire dy habitus artifact.
[2019-12-01] MEDS: SODIUM BICARB 325 MG TAB PO SCH (21:39)
[2019-12-01] MEDS ORDERED: ACETAMINOPHEN 500 MG TAB PO ONE (23:31)
[2019-12-02] MEDS: NACHLORIDE 0.45% 1,000 ML IV SCH ×2 (00:17→12:07)
[2019-12-02 05:14] LABS: Albumin 2.7 g/dL (3.4-5.0); Bilirubin Total 0.2 mg/dL (0.2-1.0); Phosphorus 2.5 mg/dL (2.5-4.9); Protein, Total 5.8 g/dL (6.4-8.2); Thyroid Stimulating Hormone 0.474 uIU/mL (0.360-3.740); Uric Acid 10.3 mg/dL (2.6-6.0)
[2019-12-02 07:49] LABS: Urine Protein/Creatinine Ratio 0.36 ratio (<0.15)
[2019-12-02] MEDS: PANTOPRAZOLE 40MG TABLET PO SCH (08:38)
[2019-12-02] MEDS: LEVOTHYROXINE SOD 0.075 MG TAB PO SCH (08:38)
[2019-12-02] MEDS: VENLAFAXINE HCL XR 75 MG CAP PO SCH (08:38)
[2019-12-02] MEDS: SODIUM BICARB 325 MG TAB PO SCH ×2 (08:39→22:01)
[2019-12-02 08:55] LABS: Rheumatoid Factor NEG (NEG)
[2019-12-02] MEDS ORDERED: HOME MED 1 EA UNK (Omeprazole [Prilosec] 40 MG) PO SCH (09:00)
[2019-12-02] MEDS: ENOXAPARIN 30 MG/0.3 ML SQ SCH (09:01)
--- NOTE | 2019-12-02 16:33 | P.PN ---
Subjective Date of Service: 12/02/19 Primary Care Provider: Dr. Mesa Chief Complaint: Acute renal failure Subjective: Improving Physical Examination - Vital Signs Temperature: 98.6 F Blood Pressure: 176/72 Pulse: 76 Respirations: 16 Pulse Ox (%): 99 - Physical Exam General: Alert, In no apparent distress, Oriented x3, Cooperative HEENT: Atraumatic Neck: Supple Respiratory: Clear to auscultation bilaterally, Normal air movement Cardiovascular: Normal pulses, Regular rate/rhythm Gastrointestinal: Normal bowel sounds, Soft and benign, Non-distended, No masses, No rebound, No guarding Musculoskeletal: No erythema, No tenderness, No warmth Neurological: Normal speech, Normal strength at 5/5 x4 extr, Normal tone, Normal affect - Studies Microbiology Data (last 24 hrs): 11/30/19 13:37 Throat Culture & Sensitivity - Final NORMAL UPPER RESPIRATORY MANDEEP GROWN. 11/30/19 15:52 Clean Catch Urine Drummond Count - Final BETWEEN 10,000 & 100,000 CFU/ML 11/30/19 15:52 Clean Catch Urine - Final MIXED MANDEEP. 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 Renal ultrasound shows chronic disease. Continue with hydration. Patient overall improved. Will discuss case with nephrology. Case also discuss with her PCP. Likely discharge tomorrow if renal function significantly improved. I will turn the patient over to her PCP-Dr. Mesa Hypothyroidism: Continue with her medication Depression with anxiety: Continue medication Time Spent Managing Pts Care (In Minutes): 55
[2019-12-02] MEDS ORDERED: HOME MED [LATANOPROST 0.005% 2.5ML OPTH] OPTH SCH (21:00)
--- NOTE | 2019-12-03 00:12 | PN ---
Date of Progress Note: 12/02/2019 Chief Complaint: Acute on chronic kidney injury. History Of Present Illness: Patient is an 79-year-old woman with past medical history of hypertensio n, hyperlipidemia, arthritis, colon cancer status post colostomy and a chemotherapy and radiation leigh k in 2007. Patient presented to the hospital because of dizziness, decreased p.o. intake, and she wa s experiencing a presyncopal episode. She was found to have elevated BUN and creatinine. Patient, p rior to this admission, denied diarrhea, cough, or shortness of breath. Review of Systems: Denies chest pain, palpitation. Physical Examination: Lungs: Diminished breath sounds at bases. Heart: S1, S2. Abdomen: Soft, benign. Extremities: Slight edema in both ankles. Laboratory Data: Blood work, BUN 54, creatinine 3.1, sodium 135, potassium 5.6, bicarbonate 16. CT scan of the abdomen and pelvis did not show hydronephrosis. Today, lab work show sodium 140, potassi um 4.0, chloride 117, CO2 16, BUN 34, creatinine 1.39, calcium 7.0, phosphorus 2.5, albumin 2.7. Impression And Plan: 1.Acute on chronic kidney injury, nonoliguric, associated with prerenal azotemia, nonoliguric acute tubular necrosis. Patient is improving in response to IV fluids. We recommend to avoid nonsteroidal anti-inflammatory medication. 2.Hypoalbuminemia. Workup is pending to rule out nephrotic syndrome and to screen for proteinuria. 3.Metabolic acidosis. Continue sodium bicarbonate replacement. 4.Hyperkalemia secondary to kidney failure, resolved. Continue to monitor potassium level and adjus t the Kayexalate if needed. Currently, potassium is within normal limits. 5.Hypertension, controlled. Continue current treatment. EB/MODL Voice ID: [id number] Report ID: [id number]
[2019-12-03 04:17] LABS: Absolute Lymphocytes (CBC) 0.8 K/uL (0.7-4.9); Hematocrit 29.1 % (36.0-45.0); Lymphocytes % 27.5 % (15.3-44.8); MPV 9.5 fL (7.6-11.3); RBC Red Blood Cell Count 2.97 M/uL (3.86-4.86)
[2019-12-03 04:36] LABS: Albumin 2.7 g/dL (3.4-5.0); Bilirubin Total 0.3 mg/dL (0.2-1.0); Phosphorus 2.6 mg/dL (2.5-4.9); Protein, Total 5.7 g/dL (6.4-8.2)
[2019-12-03] MEDS: LEVOTHYROXINE SOD 0.075 MG TAB PO SCH (06:26)
[2019-12-03 08:13] VITALS: BP 139/65; TEMP 97.1
[2019-12-03] MEDS: VENLAFAXINE HCL XR 75 MG CAP PO SCH (08:52)
[2019-12-03] MEDS: PANTOPRAZOLE 40MG TABLET PO SCH (08:52)
[2019-12-03] MEDS: ENOXAPARIN 30 MG/0.3 ML SQ SCH (08:52)
[2019-12-03] MEDS: SODIUM BICARB 325 MG TAB PO SCH (08:52)
[2019-12-03 09:22] VITALS: O2SAT 96
[2019-12-03] MEDS ORDERED: CALCIUM CARBONATE CHEW 500MG TAB PO SCH (11:30)
--- NOTE | 2019-12-03 12:37 | PN ---
Date of Progress Note: 12/03/2019 Subjective: Patient was admitted with acidosis, acute kidney injury secondary to prerenal, secondary to gastrointestinal loss. Patient after hydration, kidney function has been improved. Acidosis con tinue to improve on oral bicarb. Physical Examination: Vital Signs: When I saw the patient, blood pressure 139/65, pulse of 75. Patient had good urine out put. Chest: Clear to auscultation. Heart: S1, S2. Systolic murmur. Abdomen: Soft, nontender. Colostomy. Extremities: No edema. Neurologic: Alert. No focal. Laboratory Data: WBC 2.8, H and H 9.8/29.1, platelets 113. Sodium 144, potassium 4, bicarb 17, BUN 26, creatinine 1.3, chloride 118, anion gap of 9. Calcium 7.4, phosphorus 2.6. PTH 77, TSH 0.4. Se rum protein electrophoresis still pending. Serology pending. Urinalysis; specific gravity of 1.025. P/C ratio 0.3. Current Medications: The patient on; sodium bicarb 650 t.i.d., Lovenox, pantoprazole, levothyroxine. Assessment And Plan: 1.Acute kidney injury, normal-sized kidney, obstructive uropathy has been ruled out. Acute kidney i njury was multifactorial secondary to cervical intraepithelial neoplasia and prerenal, recover. Norm al volume. We will hold IV fluid. We will monitor. 2.Hypertension, controlled. 3.Non-anion gap metabolic acidosis secondary to gastrointestinal loss secondary to colostomy. I am going to start the patient on Tums, calcium carbonate, and continue sodium bicarb. Patient cleared from the renal standpoint for discharge planning to follow up in the office in 2 to 3 weeks with vanessa wan. LEIDA/TATI Voice ID: [id number] Report ID: [id number]
--- NOTE | 2019-12-04 09:50 | PN ---
Date of Progress Note: 12/03/2019 Hospital Course: The patient feels better this morning. She is tolerating her diet, up and about, b asically asymptomatic as far as the renal status is concerned; however, she is still slightly acidoti c. She will be discharged on her medication usual with a decrease in the beta-cory dose depending on her blood pressure reading and the addition of Tums for alkalization. She will be followed by my self in a couple days to repeat the blood work and by Nephrology. The patient does have significant arthritis by history and she was told to avoid all NSAIDs, OTCs, an d medication in this family and to use Tylenol. This will be discussed further at her next office vi sit. Final Diagnoses: Acute renal failure, probably secondary to nonsteroidal anti-inflammatory drugs; de hydration; hypertension, controlled; osteoarthritis, generalized, moderate. HR/MODL Voice ID: [id number] Report ID: [id number]
[2019-12-05 03:10] LABS: HBsAG Nonreactive (Nonreactive)
[2019-12-05 23:08] LABS: Albumin, (SPE) 2.8 g/dL (3.8-4.8); Alpha-1-Globulins 0.2 g/dL (0.2-0.3); Alpha-2-Globulins 0.9 g/dL (0.5-0.9); Gamma Globulins 0.8 g/dL (0.8-1.7); INTERPRETATION REPORT
[2019-12-07 17:30] LABS: Hepatitis C Virus RNA (PCR)log <1.18 log IU/mL
== END 2019-12-03 11:45 | disposition home or self-care (01) | DRG 683 ==
LOC: ER 12:24 → ERHOLD 17:08 → 4TH 18:08 → 2ND 12-01 00:57
PROVIDERS: ADMIT Family Medicine; ATTEND Internal Medicine Sleep Medicine
DX: N17.0 Acute kidney failure with tubular necrosis (principal); E87.2 Acidosis; I12.0 Hypertensive chronic kidney disease with stage 5 chronic kidney disease or end stage renal disease; K21.9 Gastro-esophageal reflux disease without esophagitis; N18.5 Chronic kidney disease, stage 5; E03.9 Hypothyroidism, unspecified; I10 Essential (primary) hypertension; E86.0 Dehydration; M19.90 Unspecified osteoarthritis, unspecified site; E55.9 Vitamin D deficiency, unspecified; N87.9 Dysplasia of cervix uteri, unspecified; E87.5 Hyperkalemia; D63.1 Anemia in chronic kidney disease; F41.8 Other specified anxiety disorders; E88.09 Other disorders of plasma-protein metabolism, not elsewhere classified; M15.9 Polyosteoarthritis, unspecified; N14.1 Nephropathy induced by other drugs, medicaments and biological substances; T39.395A Adverse effect of other nonsteroidal anti-inflammatory drugs [NSAID], initial encounter; Z93.3 Colostomy status; Z20.828 Contact with and (suspected) exposure to other viral communicable diseases
CPT/HCPCS: 36415; 71045; 74176; 76770; 80053; 80069; 81003; 81015; 82570; 83520; 83970; 84100; 84156; 84165; 84300; 84443; 84484; 84550; 85025; 86021; 86038; 86225; 86317; 86430; 86704; 86706; 87070; 87081; 87086; 87088; 87340; 87522; 87804; 93005; 96361; 96365; 99285; J0696; J1650; J7030; U0002

== ENCOUNTER 2020-07-16 11:42 | Emergency (ER) | payer OTHER ==
[2020-07-16] MEDS ORDERED: TRAMADOL HCL 50 MG TAB ONE ×2 (13:57→16:08)
[2020-07-16 14:03] LABS: Absolute Lymphocytes (CBC) 0.6 K/uL (0.7-4.9); Basophils % 0.4 % (0-1.3); Hematocrit 34.2 % (36.0-45.0); Lymphocytes % 6.7 % (15.3-44.8); MPV 9.7 fL (7.6-11.3); RBC Red Blood Cell Count 3.46 M/uL (3.86-4.86)
[2020-07-16 14:24] LABS: Potassium 4.4 mmol/L (3.5-5.1); Uric Acid 9.5 mg/dL (2.6-6.0)
--- NOTE | 2020-07-16 15:11 | RAD REPORT ---
EXAM DESCRIPTION: US - Extrem Venous W Compress Gabriel - 07/16/2020 2:55 pm CLINICAL HISTORY: PAIN Bilateral leg edema and swelling. COMPARISON: EXT VENOUS UNI LTD dated 11/18/2014 TECHNIQUE: Real-time sonographic interrogation of the left and right lower extremity deep venous sys tems was performed. FINDINGS: Normal compressibility, flow augmentation, phasic flow and spontaneous flow is identified in both the left and right lower extremity deep venous systems. There appears to be old thrombus pres ent in the left popliteal vein. IMPRESSION: No sonographic evidence of acute left or right lower extremity deep venous thrombosis. 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
[2020-07-16] MEDS ORDERED: KETOROLAC 30 MG/ML INJ ONE (15:38)
--- NOTE | 2020-07-16 15:40 | EDPHYS ---
Physician Documentation [facility] Name: Ambar Jay Age: 79 yrs Sex: Female : 1940 Arrival Date: 07/16/2020 Time: 11:45 Bed 28 Private MD: Jayden Landry HPI: 07/16 13:30 This 79 yrs old Female presents to ER via Wheelchair with complaints of Leg cp Pain, Foot Pain. 13:30 The patient presents with pain, that is chronic. The complaints affect the left lower cp leg and left foot and right lower leg and right foot. Context: resulted from patient reports being diagnosed with neuropathy, the patient can fully bear weight, the patient is able to ambulate, with moderate difficulty. Onset: The symptoms/episode began/occurred 2 month(s) ago. 13:30 Associated signs and symptoms: Pertinent negatives fever, swelling, warmth, weakness. cp Historical: - Allergies: 11:51 Darvon; ll1 - Home Meds: 14:44 Boniva 150 mg Oral tab 1 tab once moly [Active]; Bystolic 10 mg Oral tab 1 tab twice a hb day [Active]; Celebrex 200 mg Oral cap as needed [Active]; Effexor Oral 75 mg daily [Active]; eye drops [Active]; multivitamin Oral tab daily [Active]; Nexium 40 mg Oral cpDR 1 cap once daily [Active]; Synthroid 75 mcg Oral tab 1 tab once daily [Active]; venlafaxine 75 mg Oral tab 1 tab 2 times per day [Active]; Vitamin D Oral 1000 unit daily [Active]; Xalatan 0.005 % Opht drop 1 drop once daily [Active]; levothyroxine 75 mcg tab 1 tab once daily [Active]; gabapentin 300 mg oral cap 1 cap 3 times per day [Active]; - PMHx: 11:51 colon cancer; GERD; Glaucoma; Hypertension; Hypothyroidism; Depression; ll1 - PSHx: 11:51 Colostomy(2007); Hernia repair; colostomy moved; ll1 - Immunization history:: Flu vaccine is not up to date. - Social history:: Smoking status: Patient denies any tobacco usage or history of. ROS: 13:35 Constitutional: Negative for body aches, chills, fever, poor PO intake. cp 13:35 Eyes: Negative for injury, pain, redness, and discharge. cp 13:35 Neck: Negative for pain with movement, pain at rest, stiffness. 13:35 Cardiovascular: Negative for chest pain, edema, palpitations. 13:35 Respiratory: Negative for cough, shortness of breath, wheezing. 13:35 Abdomen/GI: Negative for abdominal pain, nausea, vomiting, and diarrhea. 13:35 Back: Negative for pain at rest, pain with movement. 13:35 : Negative for urinary symptoms. 13:35 MS/extremity: Positive for pain, paresthesias, of the left lower leg and right lower leg and left foot and right foot, Negative for injury or acute deformity. 13:35 Neuro: Negative for altered mental status, dizziness, weakness. 13:35 All other systems are negative. Exam: 13:40 Constitutional: The patient appears in no acute distress, alert, awake, cp non-diaphoretic, non-toxic, well developed, well nourished. 13:40 Head/Face: Normocephalic, atraumatic. cp 13:40 Chest/axilla: Inspection: normal. 13:40 Cardiovascular: Rate: normal, Edema: is not appreciated, JVD: is not appreciated. 13:40 Respiratory: the patient does not display signs of respiratory distress, Respirations: normal, no use of accessory muscles. 13:40 Abdomen/GI: Exam negative for discomfort, distension, guarding, Inspection: abdomen appears normal. 13:40 Back: pain, is absent, ROM is normal. 13:40 Musculoskeletal/extremity: Extremities: grossly normal except: noted in the right lower leg and left lower leg and right foot and left foot: pain, tenderness, There is no evidence of decreased ROM, deformity, injury. 13:40 Skin: cellulitis, is not appreciated, no rash present. 13:40 Neuro: Sensation: no obvious gross deficits. Vital Signs: 11:51 BP 155 / 74; Pulse 81; Resp 17; Temp 98.8; Pulse Ox 100% ; Weight 59.87 kg; Height 5 ll1 ft. 0 in. (152.40 cm); Pain 10/10; 16:00 BP 145 / 84; Pulse 89; Resp 16; Pulse Ox 98% on R/A; iw 11:51 Body Mass Index 25.78 (59.87 kg, 152.40 cm) ll1 MDM: 13:14 Patient medically screened. amira 14:00 Differential diagnosis: DVT, cellulitis, peripheral neuropathy. cp 15:35 ED course: no results for patient found on [place] prescription monitor website. cp 15:38 Data reviewed: vital signs, nurses notes, lab test result(s), radiologic studies, cp ultrasound, and as a result, I will discharge patient. 15:38 Counseling: I had a detailed discussion with the patient and/or guardian regarding: the cp historical points, exam findings, and any diagnostic results supporting the discharge/admit diagnosis, lab results, radiology results, the need for outpatient follow up, a family practitioner, to return to the emergency department if symptoms worsen or persist or if there are any questions or concerns that arise at home. Response to treatment: Pain improved, and as a result, I will discharge patient. 07/16 13:31 Order name: CBC with Diff cp 07/16 13:31 Order name: BMP; Complete Time: 15:04 cp 07/16 15:05 Interpretation: Normal except: CO2 20; GLUC 123; BUN 24; CRE 1.55; GFR 32; CA 8.2. cp 07/16 13:28 Order name: US Extremity Venous W Compression Gabriel; Complete Time: 15:23 cp 07/16 13:31 Order name: Uric Acid; Complete Time: 15:04 cp 07/16 13:31 Order name: CBC with Automated Diff; Complete Time: 15:04 EDMS 07/16 15:05 Interpretation: Normal except: RBC 3.46; HGB 11.2; HCT 34.2; MELANIE% 83.1; LYM% 6.7; LYMA cp 0.6. 07/16 13:31 Order name: IV; Complete Time: 13:55 cp Administered Medications: 13:44 Drug: traMADol 25 mg Route: PO; hb 14:10 Follow up: Response: No adverse reaction iw 15:25 Drug: TORadol - Ketorolac 15 mg Route: IVP; Site: left antecubital; iw 16:00 Follow up: Response: No adverse reaction; Pain is decreased iw 15:49 Drug: Eliquis 2.5 mg Route: PO; iw 16:00 Follow up: Response: No adverse reaction iw Disposition: 07/17 05:43 Co-signature as Attending Physician, Jayden Pan MD I agree with the assessment and amira plan of care. Disposition: 07/16/20 15:39 Discharged to Home. Impression: Pain in left lower leg, Pain in right lower leg. - Condition is Stable. - Discharge Instructions: Chronic Pain, Peripheral Neuropathy. - Prescriptions for Tramadol 50 mg Oral Tablet - take 1 tablet by ORAL route every 12 hours as needed; 12 tablet. Eliquis 2.5 mg Oral tablet - take 1 tablet by ORAL route 2 times per day; 60 tablet. - Medication Reconciliation Form, Thank You Letter, Antibiotic Education, Prescription Opioid Use form. - Follow up: Private Physician; When: 2 - 3 days; Reason: Recheck today's complaints. - Problem is an ongoing problem. - Symptoms have improved. - Notes: Increase Neurontin to 600 mg every 12 hours and follow-up with primary physician Signatures: Dispatcher [employer] EDMS Jayden Pan MD MD cha Williams, Irene RN RN iw Jayden Evans PA PA cp Yudelka Brown RN RN Jody Fuller RN RN ll1 Corrections: (The following items were deleted from the chart) 07/16 15:05 15:05 Normal except: CO2 20; GLUC 123; BUN 24; CRE 1.55; GFR 32. cp cp 15:05 15:05 Normal except: RBC 3.46; HGB 11.2; HCT 34.2. cp cp 16:08 15:39 07/16/2020 15:39 Discharged to Home. Impression: Pain in left lower leg; Pain in iw right lower leg. Condition is Stable. Forms are Medication Reconciliation Form, Thank You Letter, Antibiotic Education, Prescription Opioid Use. Follow up: Private Physician; When: 2 - 3 days; Reason: Recheck today's complaints. Problem is an ongoing problem. Symptoms have improved. cp
--- NOTE | 2020-07-16 15:40 | ER ---
Nurse's Notes [facility] Name: Ambar Jay Age: 79 yrs Sex: Female : 1940 Arrival Date: 07/16/2020 Time: 11:45 Bed 28 Private MD: Diagnosis: Pain in left lower leg;Pain in right lower leg Presentation: 07/16 11:51 Chief complaint: Patient states: Bilateral leg and bottom of feet pain/burning for 2 ll1 months. Pain got worse today. Pain to bottom of feet hurt a lot to even walk. No trauma or falls. No fever. Coronavirus screen: Client denies travel out of the [place] in the last 14 days. At this time, the client does not indicate any symptoms associated with coronavirus-19. Ebola Screen: Patient denies travel to an Ebola-affected area in the 21 days before illness onset. Initial Sepsis Screen: Does the patient meet any 2 criteria? No. Patient's initial sepsis screen is negative. Does the patient have a suspected source of infection? Yes: Other: leg/feet pain. Risk Assessment: Do you want to hurt yourself or someone else? Patient reports no desire to harm self or others. Onset of symptoms was May 15, 2020. 11:51 Method Of Arrival: Wheelchair ll1 11:51 Acuity: ANTWAN 4 ll1 Historical: - Allergies: 11:51 Darvon; ll1 - Home Meds: 14:44 Boniva 150 mg Oral tab 1 tab once moly [Active]; Bystolic 10 mg Oral tab 1 tab twice a hb day [Active]; Celebrex 200 mg Oral cap as needed [Active]; Effexor Oral 75 mg daily [Active]; eye drops [Active]; multivitamin Oral tab daily [Active]; Nexium 40 mg Oral cpDR 1 cap once daily [Active]; Synthroid 75 mcg Oral tab 1 tab once daily [Active]; venlafaxine 75 mg Oral tab 1 tab 2 times per day [Active]; Vitamin D Oral 1000 unit daily [Active]; Xalatan 0.005 % Opht drop 1 drop once daily [Active]; levothyroxine 75 mcg tab 1 tab once daily [Active]; gabapentin 300 mg oral cap 1 cap 3 times per day [Active]; - PMHx: 11:51 colon cancer; GERD; Glaucoma; Hypertension; Hypothyroidism; Depression; ll1 - PSHx: 11:51 Colostomy(2007); Hernia repair; colostomy moved; ll1 - Immunization history:: Flu vaccine is not up to date. - Social history:: Smoking status: Patient denies any tobacco usage or history of. Screenin:45 Abuse screen: Denies threats or abuse. Denies injuries from another. Nutritional hb screening: No deficits noted. Tuberculosis screening: No symptoms or risk factors identified. Fall Risk None identified. Assessment: 13:45 General: Appears in no apparent distress. Behavior is calm, cooperative. Pain: Pain hb currently is 9 out of 10 on a pain scale. Neuro: Level of Consciousness is awake, alert, obeys commands, Oriented to person, place, time, situation. Cardiovascular: Capillary refill < 3 seconds Patient's skin is warm and dry. Respiratory: Respiratory effort is even, unlabored, Respiratory pattern is regular, symmetrical. GI: No signs and/or symptoms were reported involving the gastrointestinal system. : No signs and/or symptoms were reported regarding the genitourinary system. EENT: No signs and/or symptoms were reported regarding the EENT system. Derm: Skin is pink, warm \T\ dry. Musculoskeletal: Reports bilateral foot pain 03/07. 14:42 Reassessment: Patient appears in no apparent distress at this time. Patient and/or iw family updated on plan of care and expected duration. Pain level reassessed. Patient is alert, oriented x 3, equal unlabored respirations, skin warm/dry/pink. call light within reach , warm blanket and pillow given. 16:00 Reassessment: Patient appears in no apparent distress at this time. Patient and/or iw family updated on plan of care and expected duration. Pain level reassessed. Patient is alert, oriented x 3, equal unlabored respirations, skin warm/dry/pink. Patient states feeling better. Patient states symptoms have improved. Vital Signs: 11:51 BP 155 / 74; Pulse 81; Resp 17; Temp 98.8; Pulse Ox 100% ; Weight 59.87 kg; Height 5 ll1 ft. 0 in. (152.40 cm); Pain 10; 16:00 BP 145 / 84; Pulse 89; Resp 16; Pulse Ox 98% on R/A; iw 11:51 Body Mass Index 25.78 (59.87 kg, 152.40 cm) ll1 ED Course: 11:45 Patient arrived in ED. as 11:50 Arm band placed on. ll1 11:53 Triage completed. ll1 13:14 Jayden Evans PA is PHCP. cp 13:14 Jayden Pan MD is Attending Physician. cp 13:32 Yudelka Brown, RN is Primary Nurse. hb 13:54 Bed in low position. Call light in reach. Side rails up X2. Warm blanket given. Verbal jp3 reassurance given. Pulse ox on. NIBP on. 13:54 Initial lab(s) drawn, by me, sent to lab. Inserted saline lock: 20 gauge in left jp3 antecubital area, using aseptic technique. Blood collected. Patient maintains SpO2 saturation greater than 95% on room air. 14:55 US Extremity Venous W Compression Gabriel In Process Unspecified. EDMS 16:07 No provider procedures requiring assistance completed. IV discontinued, intact, iw bleeding controlled, No redness/swelling at site. Pressure dressing applied. Administered Medications: 13:44 Drug: traMADol 25 mg Route: PO; hb 14:10 Follow up: Response: No adverse reaction iw 15:25 Drug: TORadol - Ketorolac 15 mg Route: IVP; Site: left antecubital; iw 16:00 Follow up: Response: No adverse reaction; Pain is decreased iw 15:49 Drug: Eliquis 2.5 mg Route: PO; iw 16:00 Follow up: Response: No adverse reaction iw Outcome: 15:39 Discharge ordered by MD. cp 16:07 Discharged to home via wheelchair, with family. iw 16:07 Condition: good 16:07 Discharge instructions given to patient, Instructed on discharge instructions, follow up and referral plans. medication usage, Demonstrated understanding of instructions, follow-up care, medications, Prescriptions given X 2. 16:08 Patient left the ED. iw Signatures: Dispatcher [employer] Melba Ruano Irene, RN RN iw Jayden Evans PA PA cp Yudelka Brown, RN RN Eusebio Arguelles jp3 Jody Fuller RN RN ll1
[2020-07-16] MEDS ORDERED: APIXABAN 5 MG TABLET ONE (15:59)
[2020-07-16 16:25] VITALS: BP 155/74; TEMP 98.8; O2SAT 100
== END 2020-07-16 16:08 | disposition home or self-care (01) ==
LOC: ER 11:42
DX: M79.662 Pain in left lower leg (principal); M79.661 Pain in right lower leg; I10 Essential (primary) hypertension; E03.9 Hypothyroidism, unspecified; F32.9 Major depressive disorder, single episode, unspecified; Z85.038 Personal history of other malignant neoplasm of large intestine; Z88.6 Allergy status to analgesic agent
CPT/HCPCS: 36415; 80048; 84550; 85025; 93970; 96374; 99284

== ENCOUNTER 2020-09-02 06:37 | Day surgery (SDC) | payer OTHER ==
[2020-08-20 13:54] LABS: Basophils % 1.2 % (0-1.3); Hematocrit 35.4 % (36.0-45.0); Lymphocytes % 27.6 % (15.3-44.8); MPV 10.3 fL (7.6-11.3); RBC Red Blood Cell Count 3.57 M/uL (3.86-4.86)
[2020-08-20 14:08] LABS: Potassium 5.5 mmol/L (3.5-5.1)
--- NOTE | 2020-08-21 10:38 | RAD REPORT ---
EXAM DESCRIPTION: RAD - Chest Pa And Lat (2 Views) - 08/20/2020 1:43 pm CLINICAL HISTORY: pre op, patient pending heart catheterization and lower extremity arteriogram COMPARISON: Portable November 2019, two view chest October 2018 TECHNIQUE: Frontal and lateral views of the chest were obtained. FINDINGS: The lungs are clear of failure, infiltrate, mass or volume overload. Chronic interstitial lung pattern matches comparison. Trachea is midline. Heart size is normal and central vasculature is within normal limits. No pleur al effusion or pneumothorax seen. No acute bony finding noted. No aortic abnormality. Final report was delayed due to technical issues with the meter/relay technician system. IMPRESSION: Mild chronic interstitial lung pattern matching comparison. No acute finding.
[2020-09-02] MEDS ORDERED: HEPA 1000U/500MLS 2,000 UNIT/1,000 ML BAG IV ONE (07:10)
[2020-09-02] MEDS ORDERED: LIDOCAINE 1% 20 ML MDV ONE (07:10)
[2020-09-02] MEDS ORDERED: NA CHLORIDE 0.9% 500 ML ONE (07:19)
[2020-09-02] MEDS ORDERED: HEPARIN 5000 UNIT/ML 1 ML VIAL ONE (07:37)
[2020-09-02] MEDS ORDERED: MIDAZOLAM HCL 2 MG/2 ML INJ ONE (07:37)
[2020-09-02] MEDS ORDERED: FENTANYL CITR 100 MCG/2 ML ONE (07:38)
[2020-09-02] MEDS ORDERED: ATROPINE SULF 1 MG/10 ML SYR IV ONE (07:38)
[2020-09-02] MEDS ORDERED: NA CHLORIDE 0.9% 0 ML ONE (07:51)
[2020-09-02 08:18] VITALS: TEMP 97
--- NOTE | 2020-09-02 08:51 | OP ---
Date of Procedure: 09/02/2020 Surgeon: Luciano Castillo MD Firestopper Installer: Michelle Travis. Procedure: Left heart catheterization, selective coronary arteriogram, abdominal angiogram with runo ff. Indication: Unstable angina, peripheral arterial disease by Doppler and claudication. History Of Present Illness: Ms. Jay is an 79-year-old Latin-[place] woman, has a history of hyper tension, dyslipidemia, peripheral arterial disease, chronic renal disease, has had symptoms of claudi cation initially and had an abnormal arterial Doppler in June and we had plan to do an abdominal angiogram with runoff on her, however, between then and now she develop symptoms classic for unstable angina. Family and patient had requested investigating her heart as well so she was brought to the medical laboratory technician today as an outpatient. Description Of Procedure: 09/02/2020, underwent the left heart catheterization, selective coronary a rteriogram, abdominal angiogram with run-off. She was prepped and draped in routine sterile fashion. Given Versed and fentanyl for sedation. Using the Seldinger technique, 6-Citizen Of [place] sheath was introdu ameena in the right common femoral artery successfully. Angiography locally was normal. Angio-Seal was used to close the case. The heart catheterization was done first using the JL4 and JR4 to cannulate the left main and right main respectively. She was found to be a right dominant. Her right coronar y artery was normal, was large. The left main was normal. She had about a 20% to 30% ostial LAD. T he left system was very tortuous with some minimal plaquing throughout. Following that, we introduce d a pigtail catheter just above the near renals. This was 6-[place]izen [place]. Abdominal angiogram with runoff revealed normal iliacs, normal aorta, normal renals, normal SFA. She has severe disease below the k nee bilaterally. She had a completely occluded perineal and posterior tibial on the right. She had diffuse disease [id number] in all 3 vessels. There were no complications. No blood loss. Total conscious sedation was 45 minutes. Postoperative Diagnosis: Severe peripheral arterial disease distal with mild coronary artery disease . Plan: Plan is for medical therapy. I am going to add Xarelto 2.5 mg 1 p.o. b.i.d. to her regimen. She will be in the hospital for 2 hours after this procedure. She will go home after that. I will s ee her in the office in 2 weeks. I will make sure we get a followup on her renal function. SUNDAY/TATI Voice ID: [id number] Report ID: [id number]
[2020-09-02 10:05] VITALS: O2SAT 99
[2020-09-02 10:06] VITALS: BP 138/51
== END 2020-09-02 10:15 | disposition home or self-care (01) ==
LOC: CCL 06:37
DX: I70.213 Atherosclerosis of native arteries of extremities with intermittent claudication, bilateral legs (principal); I70.92 Chronic total occlusion of artery of the extremities; I25.110 Atherosclerotic heart disease of native coronary artery with unstable angina pectoris; I12.9 Hypertensive chronic kidney disease with stage 1 through stage 4 chronic kidney disease, or unspecified chronic kidney disease; N18.9 Chronic kidney disease, unspecified; E78.5 Hyperlipidemia, unspecified; Z88.6 Allergy status to analgesic agent; Z20.822 Contact with and (suspected) exposure to COVID-19
CPT/HCPCS: 93005; 85025; 80048; 36415; 85610; 85730; 71046; 36200; 93454; U0002; C1893; C1760; J2250; J3010; J7040; J1644; 75630; J0583

== ENCOUNTER 2020-12-21 20:15 | Emergency (ER) | payer OTHER ==
--- OUTSIDE RECORDS SUMMARY | 2020-12-21 20:18 | XMS REPORT | Continuity of Care Document ---
:1940 Author Organization [facility] t Address [address] [place] [address] Care Team Providers Name Role Phone Bonita MERCHANT Primary Care Physician Jailyn MERCHANT, P. Attending Clinician CHACHO Attending Clinician Unavailable Payers Payer Name Policy Type Policy Effective Date Expiration Date Sour ce Number AETNA MEDICAREAETNA [id number] 2020 [place] MED[place] H[place]/PPO 00:00:00 Methodis t [id number] -PresentHMO Problems Condition Condition Condition Status Onset Resolution Last Treating Co mments Source Name Details Category Date Date Treatment Clinician Date Primary Primary Disease Active [place] open angle open angle 5-20 Me thodi glaucoma glaucoma 00:00: st (POAG) of (POAG) of 00 both eyes, both eyes, moderate moderate stage stage Ileus, Ileus, Disease Active [place] postoperat postoperat 6-21 Me thodi amilcar amilcar 00:00: st 00 Abdominal Abdominal Disease Active Stephanie ston pain pain 6-15 [facility] 00:00: st 00 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 DDC-EGD Diagnosis Active 2011-10-10 Me moria 09-22 16:20:00 l DDC-EGD 00:00: Jayjay 00 Active 09/23/2011 [facility] ABDMNAL Diagnosis Active 2011-10-10 Me moria PAIN 15:23:00 l GENERALIZE ABDMNAL Her momin D PAIN GENERALIZE D Active [facility] ABDMNAL Diagnosis Active 2011-10-10 Me moria PAIN 16:20:00 l UNSPCF ABDMNAL [place] SITE PAIN UNSPCF SITE Active [facility] ROUTINE Diagnosis Active 2012-12-19 [facility] MEDICAL 15:52:00 l EXAM ROUTINE [place] MEDICAL EXAM Active [facility] Allergies, Adverse Reactions, Alerts Allergy Allergy Status Severity Reaction(s) Onset Inactive Treating Comm ents Source Name Type Date Date Clinician Rafaela Jose Active Itching [place] he[place] ty to 6-15 [facility] adverse 00:00: st reaction 00 s to drug Social History Social Habit Start Date Stop Date Quantity Comments Source Alcohol intake 2018-10-15 2018-10-15 Current drinker [place] [facility] 00:00:00 00:00:00 of alcohol (finding) Tobacco use and 2018-10-15 2018-10-15 Never used Jeyson Aquino ethodist exposure 00:00:00 00:00:00 Sex [birth year] At [birth year] Jeyson Aquino ethodist 00:00:00 00:00:00 Smoking Status Start Date Stop Date Source Never smoker [facility] Methodis t Medications Ordered Filled Start Stop Current Ordering Indication Dosage Frequency Signature Comments Components Source Medication Medication Date Date Medication? Clinician (SIG) Name Name timolol Yes INSTILL 1 [place] (TIMOPTIC) 8-22 DROP TO [facility] i 0.5 % 00:00: BOTH EYES st ophthalmic 00 2 TIMES A solution DAY bimatoprost Yes 1[drp] QD Administer [facility] (LUMIGAN) 5-20 1 drop to Metho di 0.01 % 10:05: both eyes st ophthalmic 45 nightly. drops venlafaxine Yes 75mg QD Take 75 mg [facility] XR 4-29 by mouth [facility] (EFFEXOR-XR 00:00: daily. st ) 75 MG 24 00 hr capsule triamcinolo Yes APPLY TO Ho mike ne 4-03 AFFECTED [facility] (KENALOG) 00:00: AREA TWICE st 0.5 % cream 00 A DAY BONIVA 150 Yes TAKE BY [place] mg tablet 3-25 MOUTH 1 [facility] 00:00: TABLET st 00 EVERY MONTH BYSTOLIC 10 Yes 10mg QD Take 10 mg [place] mg tablet 3-24 by mouth Method i 00:00: daily. st 00 omeprazole Yes QD Take by [place] (PriLOSEC) 3-24 mouth [facility] 40 MG 00:00: daily. st capsule 00 levothyroxi Yes 75ug QD Take 75 Stephanie ston ne 3-16 mcg by [facility] (SYNTHROID, 00:00: mouth st LEVOXYL) 75 00 daily. mcg tablet Immunizations Ordered Immunization Filled Immunization Date Status Commen Source Name Name Beat My Waste Quote COVID-19 MRNA 2020-08-31 Completed [place] VACCINATION 00:00:00 [facility] PFIZER COVID-19 MRNA 2020-08-10 Completed [place] VACCINATION 00:00:00 [facility] Procedures This patient has no known procedures. Plan of Care Planned Activity Planned Date Details Comments Source Future Scheduled 2020-12-27 INFLUENZA VACCINE Mak prajapati [facility] Test 00:00:00 [code = INFLUENZA VACCINE] Future Scheduled 2003-10-25 65+ PNEUMOCOCCAL [place] [facility] Test 00:00:00 VACCINE (1 of 1 - PPSV23) [code = 65+ PNEUMOCOCCAL VACCINE (1 of 1 - PPSV23)] Future Scheduled 1988 SHINGLES VACCINES (#1) [facility] Mu-Ism Test 00:00:00 [code = SHINGLES VACCINES (#1)] Encounters Start End Encounter Admission Attending Care Care Encounter Source Date/Time Date/Time Type Type Clinicians Facility Department ID 2020-08-31 2020-08-31 Outpatient JAILYN [facility] [id number] [place] 00:00:00 00:00:[address] 2020-08-10 2020-08-10 Outpatient [facility] [id number] [place] 00:00:00 00:00:[address] 2020-03-25 2020-03-25 Outpatient Jennifer FLOR [facility] [id number] [place] 00:00:00 00:00:[address] Results This patient has no known results.
[2020-12-21] MEDS ORDERED: ONDANSETRON 4 MG/2 ML VIAL ONE (21:13)
[2020-12-21] MEDS ORDERED: MORPHINE 4 MG/ML SYR ONE (21:13)
[2020-12-21 21:34] LABS: Absolute Lymphocytes (CBC) 0.8 K/uL (0.7-4.9); Hematocrit 31.9 % (36.0-45.0); Lymphocytes % 17.6 % (15.3-44.8); MPV 9.9 fL (7.6-11.3); RBC Red Blood Cell Count 3.26 M/uL (3.86-4.86)
[2020-12-21 21:45] LABS: Albumin 3.5 g/dL (3.4-5.0); Bilirubin Total 0.2 mg/dL (0.2-1.0); Potassium 4.8 mmol/L (3.5-5.1); Protein, Total 7.5 g/dL (6.4-8.2)
[2020-12-22] MEDS ORDERED: MORPHINE 4 MG/ML SYR ONE (00:02)
--- NOTE | 2020-12-22 12:38 | EKG ---
Test Date: 2020-12-21 Test Time: 21:42:37 Turn Down Attendant: GUZMAN MEASUREMENT RESULTS: Intervals: Rate: 68 AL: 150 QRSD: 76 QT: 384 QTc: 408 [place]: P: 33 AL: 150 QRS: -4 T: 45 INTERPRETIVE STATEMENTS: Normal sinus rhythm Low voltage QRS Cannot rule out Anteroseptal infarct, age undetermined Abnormal ECG Compared to ECG 08/20/2020 12:16:33 No significant changes Electronically Signed On 12-22-20 12:37:35 CDT by Luciano Castillo
--- NOTE | 2020-12-22 13:55 | RAD REPORT ---
EXAM DESCRIPTION: RAD - Chest Single View - 12/21/2020 9:30 pm CLINICAL HISTORY: Fall. COMPARISON: None. TECHNIQUE: Single view AP chest radiograph(s). FINDINGS: The lungs are clear. No pulmonary infiltrate or edema identified. Small eventration of t he right hemidiaphragm. No pleural effusion. No pneumothorax. Nonenlarged cardiomediastinal silhouett e. No significant osseous abnormality. IMPRESSION: No acute cardiopulmonary abnormality identified. Electronically signed by: Olivia Fang MD 12/21/2020 11:48 PM CDT Due to temporary technical issues with the PACS/Fluency reporting system, reports are being signed by the in house radiologists without review as a courtesy to insure prompt reporting. The interpreting radiologist is fully responsible for the content of the report.
--- NOTE | 2020-12-22 14:02 | RAD REPORT ---
EXAM DESCRIPTION: RAD - Humerus Right - 12/21/2020 9:30 pm CLINICAL HISTORY: Fall Humerus Right. COMPARISON: None. TECHNIQUE: Two views of the right humerus: AP and lateral radiographs. FINDINGS: No acute osseous abnormality is identified. Alignment is maintained. No concerning osseous lesion. Mild acromioclavicular and glenohumeral osteoarthrosis. IMPRESSION: No acute osseous abnormality identified. Electronically signed by: Olivia Fang MD 12/21/2020 11:51 PM CDT Due to temporary technical issues with the PACS/Fluency reporting system, reports are being signed by the in house radiologists without review as a courtesy to insure prompt reporting. The interpreting radiologist is fully responsible for the content of the report.
--- NOTE | 2020-12-22 14:06 | RAD REPORT ---
EXAM DESCRIPTION: RAD - Pelvis - 12/21/2020 9:30 pm CLINICAL HISTORY: Hip pain Hip Right 2 View. COMPARISON: None. TECHNIQUE: Two views of the right hip: AP and crosstable lateral radiographs. Single view AP pelvis radiograph. FINDINGS: There is an acute right proximal femur intertrochanteric fracture extending through the cast perior aspect of the right greater trochanter, with the inferior fracture line extending along the me dial aspect of the proximal femoral shaft, inferior to the lesser trochanter. There is mild varus ang ulation. Bilateral hip joint alignment is maintained. Mild bilateral hip osteoarthrosis, with joint s paces maintained and small marginal osteophytes. Prominent L5-S1 disc and endplate degenerative hou es. Osteopenia. IMPRESSION: 1. Acute right proximal femur intertrochanteric fracture. 2. Osteopenia. 3. Mild bilateral hip osteoarthrosis. Electronically signed by: Olivia Fang MD 12/21/2020 11:47 PM CDT Due to temporary technical issues with the PACS/Fluency reporting system, reports are being signed by the in house radiologists without review as a courtesy to insure prompt reporting. The interpreting radiologist is fully responsible for the content of the report.
--- NOTE | 2020-12-22 14:18 | RAD REPORT ---
EXAM DESCRIPTION: RAD - Hip Right 2 View - 12/21/2020 9:30 pm CLINICAL HISTORY: Hip pain Hip Right 2 View. COMPARISON: None. TECHNIQUE: Two views of the right hip: AP and crosstable lateral radiographs. Single view AP pelvis radiograph. FINDINGS: There is an acute right proximal femur intertrochanteric fracture extending through the cast perior aspect of the right greater trochanter, with the inferior fracture line extending along the me dial aspect of the proximal femoral shaft, inferior to the lesser trochanter. There is mild varus ang ulation. Bilateral hip joint alignment is maintained. Mild bilateral hip osteoarthrosis, with joint s paces maintained and small marginal osteophytes. Prominent L5-S1 disc and endplate degenerative hou es. Osteopenia. IMPRESSION: 1. Acute right proximal femur intertrochanteric fracture. 2. Osteopenia. 3. Mild bilateral hip osteoarthrosis. Electronically signed by: Olivia Fang MD 12/21/2020 11:47 PM CDT Due to temporary technical issues with the PACS/Fluency reporting system, reports are being signed by the in house radiologists without review as a courtesy to insure prompt reporting. The interpreting radiologist is fully responsible for the content of the report.
--- NOTE | 2020-12-22 17:43 | ER ---
Nurse's Notes [facility] Name: Ambar Jay Age: 80 yrs Sex: Female : 1940 Arrival Date: 12/21/2020 Time: 20:24 Bed 27 Private MD: Diagnosis: Right Intertrochanteric Fracture Presentation: 12/21 20:26 Chief complaint: EMS states: Pt was stepping down one step from porch and fell onto vg1 buttocks. Pt c/o Pain in Right buttocks, Right leg and Right ankle. Pt is currently on Xarelto. Coronavirus screen: Client denies travel out of the [place] in the last 14 days. Ebola Screen: Patient negative for fever greater than or equal to 101.5 degrees Fahrenheit, and additional compatible Ebola Virus Disease symptoms. Initial Sepsis Screen: Does the patient meet any 2 criteria? No. Patient's initial sepsis screen is negative. Does the patient have a suspected source of infection? No. Patient's initial sepsis screen is negative. Risk Assessment: Do you want to hurt yourself or someone else? Patient reports no desire to harm self or others. Onset of symptoms was December 21, 2020. 20:26 Method Of Arrival: EMS: [facility] 1 20:26 Acuity: ANTWAN 3 vg1 20:47 Care prior to arrival: None. Mechanism of Injury: Fall down 1 steps. Trauma event vg1 details: Injury occurred: at home. Injury occurred: December 21, 2020. Triage Assessment: 20:29 General: Appears in no apparent distress. uncomfortable, Behavior is calm, cooperative. vg1 Pain: Complains of pain in Right hip, right thigh, and right knee Pain currently is 10 out of 10 on a pain scale. Pain began 1 hour ago. Noted to be grimacing, guarding. EENT: No signs and/or symptoms were reported regarding the EENT system. Neuro: Level of Consciousness is awake, alert, obeys commands, Oriented to person, place, time, situation. Cardiovascular: Capillary refill < 3 seconds in bilateral toes Patient's skin is warm and dry. Respiratory: Airway is patent Respiratory effort is even, unlabored. GI: No signs and/or symptoms were reported involving the gastrointestinal system. Colostomy site is clean and dry. is intact. : No signs and/or symptoms were reported regarding the genitourinary system. Derm: Skin is intact, is healthy with good turgor. Musculoskeletal: Range of motion: limited in right hip. Historical: - Allergies: 20:29 Darvon; vg1 - Home Meds: 20:29 Boniva 150 mg Oral tab 1 tab once moly [Active]; Bystolic 10 mg Oral tab 1 tab twice a vg1 day [Active]; Celebrex 200 mg Oral cap as needed [Active]; Effexor Oral 75 mg daily [Active]; eye drops [Active]; gabapentin 300 mg Oral cap 1 cap 3 times per day [Active]; levothyroxine 75 mcg tab 1 tab once daily [Active]; multivitamin Oral tab daily [Active]; Nexium 40 mg Oral cpDR 1 cap once daily [Active]; Synthroid 75 mcg Oral tab 1 tab once daily [Active]; venlafaxine 75 mg Oral tab 1 tab 2 times per day [Active]; Vitamin D Oral 1000 unit daily [Active]; Xalatan 0.005 % Opht drop 1 drop once daily [Active]; Xarelto oral [Active]; - PMHx: 20:29 colon cancer; Depression; GERD; Glaucoma; Hypertension; Hypothyroidism; vg1 - Immunization history:: Adult Immunizations up to date. - Social history:: Smoking status: Patient denies any tobacco usage or history of. Screenin:41 Abuse screen: Denies threats or abuse. Tuberculosis screening: No symptoms or risk vg1 factors identified. 20:46 Nutritional screening: No deficits noted. Fall Risk Fall in past 12 months (25 points). vg1 No secondary diagnosis (0 pts). IV access (20 points). Ambulatory Aid- None/Bed Rest/Nurse Assist (0 pts). Gait- Impaired (20 pts.). Mental Status- Oriented to own ability (0 pts). Total Rivera Fall Scale indicates High Risk Score (45 or more points). Fall prevention measures have been instituted. Side Rails Up X 2 Placed Close to Nursing Station. Primary Survey: 20:41 NO uncontrolled hemorrhage observed. A: The patient is alert. Breathing/Chest: vg1 Respiratory pattern: regular, Respiratory effort: spontaneous, Breath sounds: clear, bilaterally. Chest inspection: symmetrical rise and fall of the chest. Circulation: Pulses: palpable right dorsalis pedis artery and left dorsalis pedis artery. Skin color: pink. Disability Alert. Exposure/Environment: All clothing and personal items were removed. Forensic evidence collection is not deemed to be indicated at this time. Items placed in patient belonging bag. There is no evidence of uncontrolled external bleeding. Obvious injury(ies) are noted at this time: Pt is unable to complete ROM in Right hip and is unable to straighten right leg A warming method has been applied: A warm blanket has been provided to the patient. 21:40 Reassessment Airway Airway Patent Breathing/Chest Respiratory pattern Regular vg1 Respiratory effort Spontaneous Circulation Pulses Palpable Disability Alert. Secondary Survey: 21:50 HEENT: No deficits noted. Gastrointestinal: Abdomen is soft. : No signs and/or vg1 symptoms were reported regarding the genitourinary system. Musculoskeletal: No signs and/or symptoms reported regarding the musculoskeletal system. Assessment: 20:46 Reassessment: SEE TRIAGE. vg1 21:52 Reassessment: Patient appears in no apparent distress at this time. No changes from vg1 previously documented assessment. Patient and/or family updated on plan of care and expected duration. Pain level reassessed. Patient is alert, oriented x 3, equal unlabored respirations, skin warm/dry/pink. Vital Signs: 20:26 BP 186 / 71; Pulse 66; Resp 16; Temp 98.2(O); Pulse Ox 98% ; Weight 62.6 kg; Height 5 vg1 ft. 0 in. (152.40 cm); Pain 10/10; 20:30 BP 178 / 61; Pulse 64; Resp 16; Pulse Ox 98% ; vg1 20:26 Body Mass Index 26.95 (62.60 kg, 152.40 cm) vg1 Yojana Coma Score: 20:41 Eye Response: spontaneous(4). Verbal Response: oriented(5). Motor Response: obeys vg1 commands(6). Total: 15. Trauma Score (Adult): 20:41 Eye Response: spontaneous(1); Verbal Response: oriented(1); Motor Response: obeys vg1 commands(2); Systolic BP: > 89 mm Hg(4); Respiratory Rate: 10 to 29 per min(4); Phil[place] Score: 15; Trauma Score: 12 ED Course: 20:24 Patient arrived in ED. mw2 20:26 Denise Stoner, RN is Primary Nurse. vg1 20:28 Sagar Ritchie PA is PHCP. [facility] 20:28 Jayden Pan MD is Attending Physician. [facility] 20:29 Triage completed. vg1 20:41 Patient has correct armband on for positive identification. Placed in gown. Bed in low vg1 position. Call light in reach. Side rails up X2. 20:41 Patient maintains SpO2 saturation greater than 95% on room air. vg1 20:47 Arm band placed on. vg1 20:57 Inserted saline lock: 20 gauge in left antecubital area, using aseptic technique. Blood dh4 collected. 21:30 Humerus Right XRAY In Process Unspecified. EDMS 21:30 Hip Right 2 View XRAY In Process Unspecified. EDMS 21:30 Pelvis XRAY In Process Unspecified. EDMS 21:30 Chest Single View XRAY In Process Unspecified. EDMS 21:45 Thermoregulation: warm blanket given to patient. vg1 21:50 initiated a transfer with Rolando from [facility]. mw2 21:56 Report given to HÉCTOR Guerra. vg1 22:11 all of [facility] denied due to capacity. mw2 22:24 administrative approval given by Di Goss/ patient has been accepted to [address] Emergency Department/ Dr. Mora accepted the patient in transfer/ report to be called to [phone]. Administered Medications: 20:58 Drug: Zofran (Ondansetron) 4 mg Route: IVP; Site: left antecubital; vg1 21:00 Drug: morphine 4 mg Route: IVP; Site: left antecubital; vg1 23:49 Drug: morphine 4 mg Route: IVP; Site: left antecubital; ld1 23:50 Follow up: Response: No adverse reaction ld1 Outcome: 22:51 ER care complete, transfer ordered by . tejal 12/22 00:00 Patient left the ED. mw2 Signatures: Dispatcher [employer] EDMS Sagar Ritchie PA PA Abdelrahman Guzman mw2 Warren Frazier 4 Denise Stoner, RN RN vg1 Georgiana Burks RN RN ld1 Corrections: (The following items were deleted from the chart) 12/21 21:50 20:46 Reassessment 1 vg1 21:52 20:29 GI: No signs and/or symptoms were reported involving the gastrointestinal system. vg1 vg1
--- NOTE | 2020-12-22 17:43 | EDPHYS ---
Physician Documentation [facility] Name: Ambar Jay Age: 80 yrs Sex: Female : 1940 Arrival Date: 12/21/2020 Time: 20:24 Bed 27 Private MD: ED Physician Jayden Pan HPI: 12/20 20:31 This 80 yrs old Female presents to ER via EMS with complaints of Fall Injury. [facility] 20:31 Details of fall: The patient fell from an upright position, while walking. Onset: The [facility] symptoms/episode began/occurred acutely, just prior to arrival. Associated injuries: The patient sustained right arm, right leg. The patient has not experienced similar symptoms in the past. This is an 80-year-old female with history of colon cancer, depression, GERD, glaucoma, hypertension the presents emerged part with complaints of right leg pain with also some mild pain at the right arm. This occurred after a mechanical fall which occurred just prior to arrival. Patient entered the ED via EMS. Pain mainly to the right proximal leg. Denies hitting her head. Denies loss of consciousness. Historical: - Allergies: 12/21 20:29 Darvon; vg1 - Home Meds: 20:29 Boniva 150 mg Oral tab 1 tab once moly [Active]; Bystolic 10 mg Oral tab 1 tab twice a vg1 day [Active]; Celebrex 200 mg Oral cap as needed [Active]; Effexor Oral 75 mg daily [Active]; eye drops [Active]; gabapentin 300 mg Oral cap 1 cap 3 times per day [Active]; levothyroxine 75 mcg tab 1 tab once daily [Active]; multivitamin Oral tab daily [Active]; Nexium 40 mg Oral cpDR 1 cap once daily [Active]; Synthroid 75 mcg Oral tab 1 tab once daily [Active]; venlafaxine 75 mg Oral tab 1 tab 2 times per day [Active]; Vitamin D Oral 1000 unit daily [Active]; Xalatan 0.005 % Opht drop 1 drop once daily [Active]; Xarelto oral [Active]; - PMHx: 20:29 colon cancer; Depression; GERD; Glaucoma; Hypertension; Hypothyroidism; vg1 - Immunization history:: Adult Immunizations up to date. - Social history:: Smoking status: Patient denies any tobacco usage or history of. ROS: 07/25 20:31 Constitutional: Negative for fever, chills, and weight loss, Cardiovascular: Negative jmm for chest pain, palpitations, and edema, Respiratory: Negative for shortness of breath, cough, wheezing, and pleuritic chest pain. MS/extremity: Positive for injury or acute deformity. All other systems are negative. Exam: 20:31 Constitutional: This is a well developed, well nourished patient who is awake, alert, jmm and in no acute distress. Head/Face: atraumatic. Eyes: EOMI, no conjunctival erythema appreciated ENT: Moist Mucus Membranes Neck: Trachea midline, Supple Chest/axilla: Normal chest wall appearance and motion. Cardiovascular: Regular rate and rhythm. No edema appreciated Respiratory: Normal respirations, no respiratory distress appreciated Abdomen/GI: Non distended, soft Back: Normal ROM Skin: General appearance color normal 20:31 Musculoskeletal/extremity: Pain is elicited on palpation of the right proximal thigh, the right foot is externally rotated and shortened, full dorsalis pulses appreciated, compartments are soft, neurovascular intact. 20:31 Skin: Appearance: Color: normal in color. 20:31 Neuro: Orientation: is normal, Mentation: is normal, Memory: is normal. 20:31 Psych: Behavior/mood is pleasant, cooperative. Vital Signs: 12/21 20:26 BP 186 / 71; Pulse 66; Resp 16; Temp 98.2(O); Pulse Ox 98% ; Weight 62.6 kg; Height 5 vg1 ft. 0 in. (152.40 cm); Pain 10/10; 20:30 BP 178 / 61; Pulse 64; Resp 16; Pulse Ox 98% ; vg1 20:26 Body Mass Index 26.95 (62.60 kg, 152.40 cm) vg1 [employer] Coma Score: 20:41 Eye Response: spontaneous(4). Verbal Response: oriented(5). Motor Response: obeys vg1 commands(6). Total: 15. Trauma Score (Adult): 20:41 Eye Response: spontaneous(1); Verbal Response: oriented(1); Motor Response: obeys vg1 commands(2); Systolic BP: > 89 mm Hg(4); Respiratory Rate: 10 to 29 per min(4); Yojana Score: 15; Trauma Score: 12 MDM: 20:31 Patient medically screened. amira 22:50 Data reviewed: vital signs, nurses notes. Counseling: I had a detailed discussion with [facility] the patient and/or guardian regarding: the historical points, exam findings, and any diagnostic results supporting the discharge/admit diagnosis, lab results, radiology results. ED course: Patient transferred to Dr. Fletcher service at [facility]. . 12/21 21:01 Order name: CBC with Diff [facility] 12/21 21:01 Order name: CMP; Complete Time: 21:46 [facility] 12/21 21:02 Order name: CBC with Automated Diff; Complete Time: 21:45 [facility] 12/21 21:43 Order name: COVID-19 : Document "Date of Symptom Onset" if Symptomatic. [facility] 12/21 23:33 Order name: SARS-COV-2 RT PCR; Complete Time: 00:47 [facility] 12/21 20:32 Order name: Saline Lock; Complete Time: 20:54 [facility] 12/21 21:01 Order name: Humerus Right XRAY [facility] 12/21 21:01 Order name: Hip Right 2 View XRAY [facility] 12/21 21:01 Order name: Pelvis XRAY [facility] 12/21 21:01 Order name: Chest Single View XRAY [facility] 12/21 21:01 Order name: EKG - Nurse/Tech; Complete Time: 21:45 [facility] 12/21 23:14 Order name: Gonzales; Complete Time: 23:44 [facility] Administered Medications: 20:58 Drug: Zofran (Ondansetron) 4 mg Route: IVP; Site: left antecubital; vg1 21:00 Drug: morphine 4 mg Route: IVP; Site: left antecubital; vg1 23:49 Drug: morphine 4 mg Route: IVP; Site: left antecubital; ld1 23:50 Follow up: Response: No adverse reaction ld1 Disposition: 12/22 07:08 Co-signature as Attending Physician, Jayden Pan MD I agree with the assessment and [facility] plan of care. Disposition Summary: 12/21/20 22:51 Transfer Ordered Transfer Location: [facility] Reason: Higher level of care [facility] Condition: Stable [facility] Problem: new [facility] Symptoms: are unchanged [facility] Accepting Physician: Jeffy Fletcher(12/22/20 00:00) mw2 Diagnosis - Right Intertrochanteric Fracture [facility] Discharge Instructions: - Discharge Summary Sheet ld1 Forms: - Medication Reconciliation Form [facility] - SBAR form ld1 Signatures: Dispatcher [employer] EDJayden Sunshine MD MD cha Mickail, Joel, PA PA jmm [place], MyKena mw2 Denise Stoner RN RN vg1 Georgiana Burks RN RN ld1 Corrections: (The following items were deleted from the chart) 12/21 22:03 21:43 CORONAVIRUS ordered. [facility] 12/22 00:00 12/21 22:51 Jeffy toure mw2
[2020-12-23 15:39] VITALS: TEMP 98.2; O2SAT 98
[2020-12-23 15:41] VITALS: BP 178/61
== END 2020-12-22 | disposition short-term general hospital (02) ==
LOC: ER 20:15
DX: S72.141A Displaced intertrochanteric fracture of right femur, initial encounter for closed fracture (principal); W19.XXXA Unspecified fall, initial encounter; I10 Essential (primary) hypertension; F32.9 Major depressive disorder, single episode, unspecified; E03.9 Hypothyroidism, unspecified; Z79.01 Long term (current) use of anticoagulants; Z88.8 Allergy status to other drugs, medicaments and biological substances; Z85.038 Personal history of other malignant neoplasm of large intestine; Z20.822 Contact with and (suspected) exposure to COVID-19
CPT/HCPCS: 93005; 85025; 36415; 80053; 71045; 72170; 73502; 73060; U0003; J2405

== ENCOUNTER 2021-07-12 18:29 | Emergency (ER) | payer OTHER ==
--- OUTSIDE RECORDS SUMMARY | 2021-07-12 18:38 | XMS REPORT | Continuity of Care Document ---
:1940 Author Organization [facility] t Address [address] [place] [address] Care Team Providers Name Role Phone Unknown Primary Care Physician Unavailable MAURICIO Attending Clinician Unavailable Mor NEWTON Attending Clinician ZOIE CASTILLO Attending Clinician Unavailable JAILYN Attending Clinician Unavailable CHACHO Attending Clinician Unavailable ZOIE CASTILLO Admitting Clinician Unavailable Payers Payer Name Policy Type Policy Number Effective Date Expiration Date S elvia [employer] MED[employer] PPO [id number] 2021 00:00:00 Problems This patient has no known problems. Allergies, Adverse Reactions, Alerts This patient has no known allergies or adverse reactions. Social History Social Habit Start Date Stop Date Quantity Comments Source Exposure to Not sure [facility] SARS-CoV-2 (event) Tobacco use and 2021-01-22 2021-01-22 Smokeless tobacco [facility] exposure 00:00:00 00:00:00 non-user Sex Ass[birth year] At [birth year] [facility] 00:00:00 00:00:00 Smoking Status Start Date Stop Date Source Never smoked tobacco [facility] Medications This patient has no known medications. Procedures This patient has no known procedures. Encounters Start End Encounter Admission Attending Care Care Encounter Source Date/Time Date/Time Type Type Clinicians Facility Department ID 2021-07-08 Outpatient [facility] [id number] [place] 11:49:57 [facility] 2021-07-08 Outpatient [facility] [id number] [place] 10:40:37 [facility] 2021-07-02 Outpatient [facility] [id number] [place] 13:37:21 Health 2021-06-11 Outpatient [facility] [id number] [place] 09:01:29 Health 2021-03-18 Outpatient MARTÍNEZ, [facility] [id number] [place] 11:23:25 [facility] 2021-03-12 Outpatient [facility] [id number] [place] 13:38:52 Health 2021-01-23 Outpatient MARTÍNEZ, [facility] [id number] [place] 01:03:46 [facility] 2021-01-22 Outpatient [facility] [id number] [place] 13:52:59 Health 2021-01-21 Outpatient MARTÍNEZ, [facility] [id number] [place] 11:57:04 [facility] 2021-01-15 Outpatient [facility] [id number] [place] 10:31:42 [facility] 2021-03-22 2021-03-22 Outpatient [facility] [id number] [place] 00:00:00 00:00:[address] 2021-03-18 2021-03-18 Office YURY Juares [id number] [place] 10:30:51 11:24:12 Visit Penelope [facility] [id number] [facility] [id number] 2021-01-21 2021-01-21 Office YURY Juares [id number] [place] 10:58:49 12:04:49 Visit [facility] [id number] [facility] [id number] 2020-12-22 2020-12-29 Inpatient Rowdy CASTILLO, [id number] 12:24:00 20:00:00 [facility] 2020-08-31 2020-08-31 Outpatient JAILYN [facility] [id number] [place] 00:00:00 00:00:00 BEREKET [address] 2020-08-10 2020-08-10 Outpatient [facility] [id number] [place] 00:00:00 00:00:[address] 2020-03-25 2020-03-25 Outpatient Jennifer FLOR [facility] [id number] [place] 00:00:00 00:00:[address] Results This patient has no known results.
[2021-07-12] MEDS ORDERED: LIDOCAINE 4% PATCH ONE (19:08)
[2021-07-12] MEDS ORDERED: DIAZEPAM 5 MG TABLET ONE (19:12)
[2021-07-12 19:16] LABS: Hematocrit 32.6 % (36.0-45.0); Lymphocytes % 18.3 % (15.3-44.8); MPV 9.2 fL (7.6-11.3); Protime INR 1.19; RBC Red Blood Cell Count 3.33 M/uL (3.86-4.86)
--- NOTE | 2021-07-12 19:23 | RAD REPORT ---
EXAM DESCRIPTION: CT - CTHCSPWOC - 07/12/2021 7:15 pm CLINICAL HISTORY: Trauma, head and neck injury. Dizziness COMPARISON: No comparisons TECHNIQUE: Axial 5 mm thick images of the head were obtained. Axial 2 mm thick images of the cervical spine were obtained with sagittal and coronal reconstruction images generated and reviewed. All CT scans are performed using dose optimization technique as appropriate and may include automated exposure control or mA/KV adjustment according to patient size. FINDINGS: CT HEAD WITHOUT CONTRAST: No acute hemorrhage, hydrocephalus or extra-axial collection is identified.Mild generalized brain atr ophy is present with mild periventricular and deep white matter chronic microvascular ischemic change s.No areas of brain edema or midline shift. The paranasal sinuses and mastoids are clear.The calvarium is intact. CT CERVICAL SPINE WITHOUT CONTRAST: No fracture or subluxation.No prevertebral soft tissues swelling is identified. IMPRESSION: No acute intracranial or cervical spine findings.
[2021-07-12 19:53] LABS: Potassium 4.1 mmol/L (3.5-5.1); Sodium Level 137 mmol/L (136-145)
[2021-07-12 19:55] LABS: Albumin 3.2 g/dL (3.4-5.0); BUN Blood Urea Nitrogen 31 mg/dL (7-18); Bicarbonate 21 mmol/L (21-32); Glucose Level 113 mg/dL (74-106); Magnesium 1.8 mg/dL (1.8-2.4)
--- NOTE | 2021-07-12 19:56 | RAD REPORT ---
EXAM DESCRIPTION: RAD - Chest Single View - 07/12/2021 7:35 pm CLINICAL HISTORY: CHEST PAIN Chest pain. COMPARISON: Chest Single View dated 12/21/2020; Chest Pa And Lat (2 Views) dated 08/20/2020; Chest Sin gle View dated 11/30/2019; Chest Pa And Lat (2 Views) dated 11/01/2018 FINDINGS: Portable technique limits examination quality. The lungs are grossly clear. The heart is normal in size. No displaced fractures. IMPRESSION: No acute intrathoracic process suspected.
[2021-07-12 20:04] LABS: ALT/SGPT 52 U/L (12-78); AST/SGOT 38 U/L (15-37); Alkaline Phosphatase 111 U/L (45-117); Bilirubin Total 0.3 mg/dL (0.2-1.0); Protein, Total 7.5 g/dL (6.4-8.2)
[2021-07-12 20:08] LABS: Bilirubin Direct < 0.1 mg/dL (0-0.2); NT PRO-BNP 847 pg/mL (<450)
--- NOTE | 2021-07-12 20:42 | ER ---
Nurse's Notes [facility] Name: Ambar Jay Age: 80 yrs Sex: Female : 1940 Arrival Date: 07/12/2021 Time: 18:31 Bed 25 Private MD: Samm Mesa Diagnosis: Strain of muscle and tendon of back wall of thorax-right trapezius Presentation: 07/12 18:34 Chief complaint: Patient states: R arm pain for at least 3 months. Light headed, near ll1 syncope feeling since Monday. Coronavirus screen: Vaccine status: Patient reports receiving the 2nd dose of the covid vaccine. Client denies travel out of the [place] in the last 14 days. At this time, the client does not indicate any symptoms associated with coronavirus-19. Ebola Screen: Patient denies travel to an Ebola-affected area in the 21 days before illness onset. Initial Sepsis Screen: Does the patient meet any 2 criteria? No. Patient's initial sepsis screen is negative. Does the patient have a suspected source of infection? No. Patient's initial sepsis screen is negative. Risk Assessment: Do you want to hurt yourself or someone else? Patient reports no desire to harm self or others. Onset of symptoms was July 09, 2021. 18:34 Method Of Arrival: Wheelchair ll1 18:34 Acuity: ANTWAN 3 ll1 Historical: - Allergies: 18:33 Darvon; ll1 - PMHx: 18:33 GERD; Hypertension; Glaucoma; colon cancer; Depression; Hypothyroidism; ll1 - PSHx: 18:33 R hip SX; ll1 - Immunization history:: Client reports receiving the 2nd dose of the Covid vaccine, Flu vaccine is up to date. - Social history:: Smoking status: Patient denies any tobacco usage or history of. Screenin:21 Abuse screen: Denies threats or abuse. Nutritional screening: No deficits noted. ss7 Tuberculosis screening: No symptoms or risk factors identified. Fall Risk None identified. Assessment: 19:19 General: Appears in no apparent distress. uncomfortable, well groomed, Behavior is ss7 calm, cooperative. Pain: Complains of pain in RIGHT NECK AND RIGHT SHOULDER. Neuro: No deficits noted. Cardiovascular: No deficits noted. Cardiovascular: Heart tones S1 S2. Respiratory: No deficits noted. Respiratory: Breath sounds are clear bilaterally. GI: No deficits noted. : No deficits noted. EENT: No deficits noted. Derm: No deficits noted. Musculoskeletal: Tenderness present in RIGHT SHOULDER. Vital Signs: 18:30 BP 163 / 67; Pulse 72; Resp 16; Pulse Ox 98% on R/A; ss7 18:34 BP 152 / 79; Pulse 79; Resp 17; Temp 98.9; Pulse Ox 96% ; Weight 58.97 kg; Height 5 ft. ll1 0 in. (152.40 cm); Pain 10/10; 18:51 BP 160 / 73; Pulse 76; Resp 16; Pulse Ox 98% ; ss7 20:00 BP 145 / 55; Pulse 71; Resp 18; Pulse Ox 99% ; ss7 18:34 Body Mass Index 25.39 (58.97 kg, 152.40 cm) ll1 ED Course: 18:31 Patient arrived in ED. as 18:31 Samm Mesa MD is Private Physician. as 18:36 Triage completed. ll1 18:36 Arm band placed on Patient placed in an exam room, on a stretcher. ll1 18:40 Thom Shah NP is PHCP. pm1 18:40 Williams Calix MD is Attending Physician. pm1 19:14 CT Head C Spine In Process Unspecified. EDMS 19:21 No provider procedures requiring assistance completed. Inserted saline lock: 20 gauge ss7 in left antecubital area, using aseptic technique. 19:23 Patient has correct armband on for positive identification. Bed in low position. Call ss7 light in reach. Side rails up X2. Adult w/ patient. server assistant on. Pulse ox on. NIBP on. Warm blanket given. 19:35 XRAY Chest (1 view) In Process Unspecified. EDMS Administered Medications: 19:24 Drug: Valium (diazepam) 2 mg Route: PO; ss7 20:11 Follow up: Response: No adverse reaction ss7 20:58 Follow up: Response: Anxiety decreased lr4 19:24 Drug: Lidoderm Patch 5 % (700 mg/patch) 1 patches Route: Topical; Site: affected area; ss7 20:11 Follow up: Response: No adverse reaction ss7 20:58 Follow up: Response: Pain is decreased lr4 20:42 Drug: Tylenol 650 mg Route: PO; lr4 20:58 Follow up: Response: Pain is decreased lr4 Outcome: 20:41 Discharge ordered by . pm1 21:05 Patient left the ED. ss7 Signatures: Dispatcher [employer] Melba Ruano Patrick, NP OVER SHORT AND DAMAGE CLERK pm1 Jody Fuller, RN RN ll1 Josselyn Yi RN RN ss7 Pavithra Lo RN RN lr4
[2021-07-12] MEDS ORDERED: ACETAMINOPHEN 325 MG TABLET ONE (20:43)
--- NOTE | 2021-07-12 20:43 | EDPHYS ---
Physician Documentation [facility] Name: Ambar Jay Age: 80 yrs Sex: Female : 1940 Arrival Date: 07/12/2021 Time: 18:31 Bed 25 Private MD: Samm Mesa ED Physician Williams Calix HPI: 07/12 18:50 This 80 yrs old Female presents to ER via Wheelchair with complaints of Arm pm1 Pain. 18:50 The patient or guardian complains of pain. The complaints affect the anterior aspect of pm1 right shoulder and right trapezius. Context: Unknown. Onset: The symptoms/episode began/occurred 3 month(s) ago. Treatment prior to arrival includes: no previous treatment. Modifying factors: The symptoms are alleviated by remaining still, the symptoms are aggravated by movement. Associated signs and symptoms: Pertinent positives: Dizziness onset Monday, Pertinent negatives: deformity, fever, numbness, swelling, tingling. Severity of symptoms: in the emergency department the symptoms are unchanged. The patient has not experienced similar symptoms in the past. Discussed with her PCP regarding right arm pain and shoulder pain and no treatment/medications was planned or prescribed. Historical: - Allergies: 18:33 Darvon; ll1 - PMHx: 18:33 GERD; Hypertension; Glaucoma; colon cancer; Depression; Hypothyroidism; ll1 - PSHx: 18:33 R hip SX; ll1 - Immunization history:: Client reports receiving the 2nd dose of the Covid vaccine, Flu vaccine is up to date. - Social history:: Smoking status: Patient denies any tobacco usage or history of. ROS: 18:50 Constitutional: Negative for fever, chills, and weight loss, Neck: Negative for injury, pm1 pain, and swelling, Cardiovascular: Negative for chest pain, palpitations, and edema, Respiratory: Negative for shortness of breath, cough, wheezing, and pleuritic chest pain, Abdomen/GI: Negative for abdominal pain, nausea, vomiting, diarrhea, and constipation, Back: Negative for injury and pain. 18:50 Skin: Negative for injury, rash, and discoloration. 18:50 MS/extremity: Positive for pain, of the Right shoulder and back pain. 18:50 Neuro: Positive for dizziness, Negative for numbness, tingling, weakness. 18:50 All other systems are negative. Exam: 18:50 Constitutional: This is a well developed, well nourished patient who is awake, alert, pm1 and in no acute distress. Head/Face: Normocephalic, atraumatic. 18:50 Chest/axilla: Normal chest wall appearance and motion. Nontender with no deformity. No lesions are appreciated. 18:50 Skin: Warm, dry with normal turgor. Normal color with no rashes, no lesions, and no evidence of cellulitis. MS/ Extremity: Pulses equal, no cyanosis. Neurovascular intact. Full, normal range of motion. 18:50 Neck: External neck: tenderness, of the right trapezius, muscle spasm, C-spine: vertebral tenderness, is not appreciated. 18:50 Cardiovascular: Exam negative for acute changes, Rate: normal, Rhythm: regular, Pulses: no pulse deficits are appreciated. 18:50 Respiratory: Exam negative for acute changes, respiratory distress, shortness of breath, Breath sounds: are clear throughout. 18:50 Back: vertebral tenderness, is not appreciated, muscle spasm, is appreciated in the right trapezius. 18:50 Neuro: Exam negative for acute changes, Orientation: is normal, Mentation: is normal, Motor: is normal, moves all fours. Vital Signs: 18:30 BP 163 / 67; Pulse 72; Resp 16; Pulse Ox 98% on R/A; ss7 18:34 BP 152 / 79; Pulse 79; Resp 17; Temp 98.9; Pulse Ox 96% ; Weight 58.97 kg; Height 5 ft. ll1 0 in. (152.40 cm); Pain 10/10; 18:51 BP 160 / 73; Pulse 76; Resp 16; Pulse Ox 98% ; ss7 20:00 BP 145 / 55; Pulse 71; Resp 18; Pulse Ox 99% ; ss7 18:34 Body Mass Index 25.39 (58.97 kg, 152.40 cm) ll1 MDM: 18:48 Patient medically screened. pm1 18:49 Data reviewed: vital signs. Data interpreted: Pulse oximetry: on room air is 96 %. pm1 Interpretation: normal. 20:40 Counseling: I had a detailed discussion with the patient and/or guardian regarding: the pm1 historical points, exam findings, and any diagnostic results supporting the discharge/admit diagnosis, lab results, radiology results, the need for outpatient follow up, to return to the emergency department if symptoms worsen or persist or if there are any questions or concerns that arise at home. 20:43 ED course: Discussion with son, he was concerned that any medications that are too pm1 strong would cause her to be a fall risk. Patient responded well to Valium in the ER but I will not discharge her home with the medication due to his concerns. 07/12 18:50 Order name: Basic Metabolic Panel; Complete Time: 20:21 pm07/12 18:50 Order name: CBC with Diff; Complete Time: 19:29 pm07/12 18:50 Order name: LFT's; Complete Time: 20:21 pm07/12 18:50 Order name: Magnesium; Complete Time: 20:21 pm07/12 18:50 Order name: NT PRO-BNP; Complete Time: 20:21 pm07/12 18:50 Order name: PT-INR; Complete Time: 19:29 pm07/12 18:50 Order name: Troponin HS; Complete Time: 20:21 pm07/12 18:50 Order name: XRAY Chest (1 view); Complete Time: 19:57 pm1 07/12 18:50 Order name: EKG; Complete Time: 18:51 pm07/12 18:50 Order name: Cardiac monitoring; Complete Time: 18:57 pm07/12 18:50 Order name: CT Head C Spine; Complete Time: 19:29 pm07/12 18:50 Order name: EKG - Nurse/Tech; Complete Time: 18:58 pm07/12 18:50 Order name: IV Saline Lock; Complete Time: 18:57 pm07/12 18:50 Order name: Labs collected and sent; Complete Time: 18:57 pm07/12 18:50 Order name: O2 Per Protocol; Complete Time: 18:57 pm07/12 18:50 Order name: O2 Sat Monitoring; Complete Time: 18:57 pm07/12 20:42 Order name: Sling; Complete Time: 20:44 pm1 Administered Medications: 19:24 Drug: Valium (diazepam) 2 mg Route: PO; ss7 20:11 Follow up: Response: No adverse reaction ss7 20:58 Follow up: Response: Anxiety decreased lr4 19:24 Drug: Lidoderm Patch 5 % (700 mg/patch) 1 patches Route: Topical; Site: affected area; ss7 20:11 Follow up: Response: No adverse reaction ss7 20:58 Follow up: Response: Pain is decreased lr4 20:42 Drug: Tylenol 650 mg Route: PO; lr4 20:58 Follow up: Response: Pain is decreased lr4 Disposition: 07/13 07:26 Co-signature as Attending Physician, Williams Calix MD. rn Disposition Summary: 07/12/21 20:41 Discharge Ordered Location: Home pm1 Problem: new pm1 Symptoms: have improved pm1 Condition: Stable pm1 Diagnosis - Strain of muscle and tendon of back wall of thorax - right trapezius pm1 Followup: pm1 - With: Emergency Department - When: As needed - Reason: Worsening of condition Followup: pm1 - With: Private Physician - When: 2 - 3 days - Reason: Recheck today's complaints, Continuance of care, Re-evaluation by your physician Discharge Instructions: - Discharge Summary Sheet pm1 - Muscle Strain pm1 Forms: - Medication Reconciliation Form pm1 - Thank You Letter pm1 - Antibiotic Education pm1 - Prescription Opioid Use pm1 Prescriptions: - Lidoderm 5 % Topical adhesive patch,medicated - apply 1 patch by TRANSDERMAL route once daily As needed 12 hours on and 12 pm1 hours off in a 24 hour period; 10 patch; Refills: 0, Product Selection Permitted Signatures: Dispatcher [employer] EDWilliams Neal MD MD rn Marinas, Patrick, PRACTICE MANAGEMENT CONSULTANT PRACTICE MANAGEMENT CONSULTANT pm1 Jody Fuller RN RN ll1 Josselyn Yi RN RN ss7 Pavithra Lo RN RN lr4 Corrections: (The following items were deleted from the chart) 07/12 19:17 18:51 Chest Single View+RAD.RAD.BRZ ordered. EDWI EDWI
[2021-07-12 22:32] VITALS: TEMP 98.9
[2021-07-12 22:34] VITALS: BP 145/55; O2SAT 99
--- NOTE | 2021-07-13 10:16 | EKG ---
Test Date: 2021-07-12 Test Time: 19:26:56 Data Processing Systems Consultant: KAMAR MEASUREMENT RESULTS: Intervals: Rate: 75 LA: 182 QRSD: 72 QT: 376 QTc: 419 [place]: P: 19 LA: 182 QRS: -27 T: 15 INTERPRETIVE STATEMENTS: Normal sinus rhythm Inferior infarct, age undetermined Anterior infarct, age undetermined Abnormal ECG Compared to ECG 12/21/2020 21:42:37 No significant changes Electronically Signed On 07-13-21 10:14:32 MMI TEACHER by Luciano Castillo
== END 2021-07-12 21:05 | disposition home or self-care (01) ==
LOC: ER 18:29
DX: S29.012A Strain of muscle and tendon of back wall of thorax, initial encounter (principal); I10 Essential (primary) hypertension; Z88.5 Allergy status to narcotic agent
CPT/HCPCS: 36415; 70450; 71045; 72125; 80048; 80076; 83735; 83880; 84484; 85025; 85610; 93005; 99284

== ENCOUNTER 2022-03-10 13:04 | Observation (INO) | payer OTHER ==
--- OUTSIDE RECORDS SUMMARY | 2022-03-10 13:08 | XMS REPORT | Continuity of Care Document ---
:1940 Author Organization [facility] t Address [address] [place] [address] Care Team Providers Name Role Phone Unknown, Physician Primary Care Physician Unavailable KIAN MARTÍNEZ Attending Clinician Unavailable RONALDO FRANCIS Attending Clinician Unavailable Penelope Alves Attending Clinician LORE CASTILLO Attending Clinician Unavailable BEREKET GLASER Attending Clinician Unavailable Jennifer FLOR Attending Clinician Unavailable LORE CASTILLO Admitting Clinician Unavailable Payers Payer Name Policy Type Policy Number Effective Date Expiration Date S elvia [employer] MEDICARE PPO [id number] 2021 00:00:00 Problems Condition Condition Condition Status Onset Resolution Last Treating Co mments Source Name Details Category Date Date Treatment Clinician Date Acquired Acquired Disease Active hypothyroi hypothyroi 01-13 He alth dism dism 00:00: 00 Acute Acute Disease Active posthemorr posthemorr 01-13 He alth hagic hagic 00:00: anemia anemia 00 Chronic Chronic Disease Active kidney kidney 01-13 Health disease disease 00:00: due to due to 00 hypertensi hypertensi on on Colostomy Colostomy Disease Active [facility] present present 01-13 Health 00:00: 00 Embolism Embolism Disease Active and and 01-13 Health thrombosis thrombosis 00:00: of femoral of femoral 00 vein vein Fall Fall Disease Active [facility] 818 Health 00:00: 00 Gastro-eso Gastro-eso Disease Active U T phageal phageal 01-13 Health reflux reflux 00:00: disease disease 00 without without esophagiti esophagiti s s Gout Gout Disease Active [facility] 818 Health 00:00: 00 Hypomagnes Hypomagnes Disease Active U T emia emia 01-13 Health 00:00: 00 Herpesvira Herpesvira Disease Active U T l l 01-13 Health vesicular vesicular 00:00: dermatitis dermatitis 00 Increased Increased Disease Active UT band cell band cell 01-13 Heal th count count 00:00: 00 Major Major Disease Active [facility] depression depression 01-13 He alth , single , single 00:00: episode episode 00 Malnutriti Malnutriti Disease Active U T on of on of 01-13 Health moderate moderate 00:00: degree degree 00 (Lane: (Lane: 60% to 60% to less than less than 75% of 75% of standard standard weight) weight) Primary Primary Disease Active UT open angle open angle 01-13 He alth glaucoma glaucoma 00:00: (POAG) of (POAG) of 00 both eyes both eyes Pathologic Pathologic Disease Active U T al al 01-13 Health fracture, fracture, 00:00: unspecifie unspecifie 00 d tibia d tibia and and fibula, fibula, subsequent subsequent encounter encounter for for fracture fracture with with routine routine healing healing Vomiting Vomiting Disease Active [facility] 18 Health 00:00: 00 Closed Closed Disease Active UT displaced displaced 2-09 Heal th intertroch intertroch 00:00: anteric anteric 00 fracture fracture of right of right femur with femur with routine routine healing healing Backache Backache Disease Active UT 06-23 Health 00:00: 00 Hypertensi Hypertensi Disease Active U T ve ve 06-23 Health disorder disorder 00:00: 00 Hyperlipid Hyperlipid Disease Active U T emia emia 06-23 Health 00:00: 00 Joint Joint Disease Active UT injury injury 06-23 Health 00:00: 00 Kidney Kidney Disease Active UT disease disease 06-23 Health 00:00: 00 Malignant Malignant Disease Active UT neoplastic neoplastic - He alth disease disease 00:00: 00 Primary Primary Disease Active Methodi open angle open angle 10-15 st glaucoma glaucoma 00:00: Hospit a (POAG) of (POAG) of 00 l both eyes, both eyes, moderate moderate stage stage Ileus, Ileus, Disease Active Methodi postoperat postoperat 11-16 st amilcar amilcar 00:00: Hospita 00 l Abdominal Abdominal Disease Active Met hodi pain pain 11-10 st 00:00: Hospita 00 l 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 11-10 with with 00:00: Hospita obstructio obstructio 00 l n and n and without without gangrene gangrene Electrolyt Electrolyt Disease Active M ethodi e and e and 11-10 st fluid fluid 00:00: Hospita disorder disorder 00 l Allergies, Adverse Reactions, Alerts Allergy Allergy Status Severity Reaction(s) Onset Inactive Treating Comm ents Source Name Type Date Date Clinician Eggs Or Allergy Active UT Egg-Deri to 07-07 Health shan substanc 00:00: Products e 00 Alimentu Drug Active UT m Allergy 07-07 Health 00:00: 00 Peanut Drug Active UT (Diagnos Allergy 07-07 Health tic) 00:00: 00 Wheat Allergy Active UT Bran to 07-07 Health substanc 00:00: e 00 Propoxyp Propensi Active Itching Metho di hene ty to 15 st adverse 00:00: Hospita reaction 00 l s to drug Propoxyp Allergy Active Itching UT hene to 11-10 Health substanc 00:00: e 00 Social History Social Habit Start Date Stop Date Quantity Comments Source Exposure to 2022-01-10 2022-01-20 Not sure [facility] SARS-CoV-2 00:00:00 09:30:00 (event) Tobacco use and 2021-01-22 2021-01-22 Smokeless tobacco [facility] exposure 00:00:00 00:00:00 non-user Alcohol intake 2018-10-15 2018-10-15 Current drinker Metho dist 00:00:00 00:00:00 of [facility] (finding) Sex Ass[birth year] At [birth year] [place] 00:00:00 00:00:00 [facility] Smoking Status Start Date Stop Date Source Never smoked tobacco [facility] Medications Ordered Filled Start Stop Current Ordering Indication Dosage Frequency Signature Comments Components Source Medication Medication Date Date Medication? Clinician (SIG) Name Name magnesium 2021-0 Yes Q6H every 6 UT hydroxide 8-18 (six) Health (Milk of 11:11: hours. Magnesia) 35 400 MG/5ML suspension phenol 2021-0 Yes 1 spray UT (Chlorasept 8-18 spit out Heal th ic) 1.4 % 11:11: after 15 liquid 35 seconds as needed oxyCODONE 2022-0 Yes Q6H every 6 UT (Roxicodone 8-18 (six) Health ) 5 MG 11:11: hours. immediate 35 release tablet omeprazole 2-0 Yes 1{tbl} QD Take 1 UT (PriLOSEC) 8-18 tablet by Heal th [address] 11:11: mouth 1 capsule 35 (one) time each day. venlafaxine 2022-0 Yes 1 (one) UT (Effexor) 8-18 time each Healt h 75 MG 11:11: day at the tablet 35 same time. magnesium 2022-0 Yes Q6H every 6 UT hydroxide 8-18 (six) Health (Milk of 11:11: hours. Magnesia) 35 400 MG/5ML suspension phenol 2-0 Yes 1 spray UT (Chlorasept 8-18 spit out Heal th ic) 1.4 % 11:11: after 15 liquid 35 seconds as needed oxyCODONE 2022-0 Yes Q6H every 6 UT (Roxicodone 8-18 (six) Health ) 5 MG 11:11: hours. immediate 35 release tablet omeprazole 2022-0 Yes 1{tbl} QD Take 1 UT (PriLOSEC) 8-18 tablet by Heal th [address] 11:11: mouth 1 capsule 35 (one) time each day. venlafaxine 2022-0 Yes 1 (one) UT (Effexor) 8-18 time each Healt h 75 MG 11:11: day at the tablet 35 same time. levothyroxi 2021-0 Yes 1 (one) UT ne 8-18 time each Health (Synthroid, 11:11: day at the Levoxyl) 75 34 same time. MCG tablet Calcium 0 Yes 1{tbl} 1 tablet. UT Carbonate 01-13 Health 500 MG 11:11: chewable 34 tablet gabapentin 2021-0 Yes 1{capsu 1 capsule. UT (Neurontin) 01-13 le} Health 300 MG 11:11: capsule 34 ferrous 2021-0 Yes 1{tbl} 1 tablet. UT sulfate 325 01-13 Health (65 Fe) MG 11:11: tablet 34 guaiFENesin 0 Yes See UT (Carla-Tussi 01-13 administra He alth n) 100 11:11: tion MG/5ML 34 instructio liquid ns. latanoprost 0 Yes 1[drp] QD 1 drop 1 UT (Xalatan) 01-13 (one) time Heal th 0.005 % 11:11: each day. ophthalmic 34 solution levoFLOXaci 0 Yes 500mg QD Take 500 U T n 01-13 mg by Health (Levaquin) 11:11: mouth 1 500 MG 34 (one) time tablet each day. levothyroxi 2021-0 Yes 1 (one) UT ne 8-18 time each Health (Synthroid, 11:11: day at the Levoxyl) 75 34 same time. MCG tablet Calcium 0 Yes 1{tbl} 1 tablet. UT Carbonate 01-13 Health 500 MG 11:11: chewable 34 tablet gabapentin 2021-0 Yes 1{capsu 1 capsule. UT (Neurontin) 01-13 le} Health 300 MG 11:11: capsule 34 ferrous 2021-0 Yes 1{tbl} 1 tablet. UT sulfate 325 18 Health (65 Fe) MG 11:11: tablet 34 guaiFENesin 2021-0 Yes See UT (Carla-Tussi 01-13 administra He alth n) 100 11:11: tion MG/5ML 34 instructio liquid ns. latanoprost 2021-0 Yes 1[drp] QD 1 drop 1 UT (Xalatan) 8-18 (one) time Heal th 0.005 % 11:11: each day. ophthalmic 34 solution levoFLOXaci 0 Yes 500mg QD Take 500 U T n 8-18 mg by Health (Levaquin) 11:11: mouth 1 500 MG 34 (one) time tablet each day. acetaminoph 2021-0 Yes 500mg Take 500 U T en 8-18 mg by Health (Tylenol) 11:11: mouth 1 500 MG 33 (one) time tablet each day if needed. acetaminoph 2021-0 Yes 500mg Take 500 U T en 8-18 mg by Health (Tylenol) 11:11: mouth 1 500 MG 33 (one) time tablet each day if needed. gabapentin 2022- Yes [id number] 300mg Take 1 UT (Neurontin) 01-13 capsule Heal th 300 MG 00:00: 04:59 (300 mg capsule 00 :00 total) by mouth every night. gabapentin 2022- Yes [id number] 300mg Take 1 UT (Neurontin) 01-13 capsule Heal th 300 MG 00:00: 04:59 (300 mg capsule 00 :00 total) by mouth every night. gabapentin 2021- Yes [id number] 300mg Take 1 UT (Neurontin) 12-29 capsule Heal th 300 MG 00:00: 04:59 (300 mg capsule 00 :00 total) by mouth every night. gabapentin 2021- Yes [id number] 300mg Take 1 UT (Neurontin) 12-29 capsule Heal th 300 MG 00:00: 04:59 (300 mg capsule 00 :00 total) by mouth every night. Xarelto 2.5 0 Yes 2.5mg Q.5D Take 2.5 U T MG tablet 7-22 mg by Health 00:00: mouth 2 00 (two) times a day. Xarelto 2.5 2021-0 Yes 2.5mg Q.5D Take 2.5 U T MG tablet 7-22 mg by Health 00:00: mouth 2 00 (two) times a day. famotidine 0 Yes 20mg QD Take 20 mg U T (Pepcid) 20 6-28 by mouth 1 He alth MG tablet 00:00: (one) time 00 each day. famotidine 2021-0 Yes 20mg QD Take 20 mg U T (Pepcid) 20 6-28 by mouth 1 He alth MG tablet 00:00: (one) time 00 each day. losartan-hy 2021-0 Yes 1{tbl} QD Take 1 UT droCHLOROth 6-22 tablet by [facility] iazide 00:00: mouth 1 (Hyzaar) 00 (one) time 50-12.5 MG each day. tablet losartan-hy 2-0 Yes 1{tbl} QD Take 1 UT droCHLOROth 6-22 tablet by [facility] iazide 00:00: mouth 1 (Hyzaar) 00 (one) time 50-12.5 MG each day. tablet allopurinol 2-0 Yes 100mg QD Take 100 U T (Zyloprim) 6-19 mg by Health 100 MG 00:00: mouth 1 tablet 00 (one) time each day. allopurinol 2022-0 Yes 100mg QD Take 100 U T (Zyloprim) 6-19 mg by Health 100 MG 00:00: mouth 1 tablet 00 (one) time each day. ergocalcife 2-0 Yes TAKE BY MT rol 6-18 MOUTH 1 Health (Vitamin 00:00: TABLET D2) 1.25 MG 00 EVERY WEEK (66790 UT) FOR 12 capsule WEEKS ergocalcife 2-0 Yes TAKE BY MT rol 6-18 MOUTH 1 Health (Vitamin 00:00: TABLET D2) 1.25 MG 00 EVERY WEEK (27446 UT) FOR 12 capsule WEEKS gabapentin 2021-0 2023- No [id number] 300mg Take 1 UT (Neurontin) 3-18 08-24 capsule Heal th 300 MG 00:00: 04:59 (300 mg capsule 00 :00 total) by mouth every night. gabapentin 2021-0 2023- No [id number] 300mg Take 1 UT (Neurontin) 3- 03-24 capsule Heal th 300 MG 00:00: 04:59 (300 mg capsule 00 :00 total) by mouth every night. Lumigan 2021-0 Yes 1[drp] Administer UT 0.01 % 3-21 1 drop Health ophthalmic 00:00: into both solution 00 eyes every night. Lumigan 2-0 Yes 1[drp] Administer UT 0.01 % 3-21 1 drop Health ophthalmic 00:00: into both solution 00 eyes every night. lidocaine 2022-0 Yes APPLY 1 UT (Lidoderm) 2-15 PATCH ONCE Hea lth 5 % patch 00:00: DAILY 00 NEEDED. 12 HOURS ON AND 12 HOURS OFF IN A 24 HOURS lidocaine Yes APPLY 1 UT (Lidoderm) 2-15 PATCH ONCE Hea lth 5 % patch 00:00: DAILY 00 NEEDED. 12 HOURS ON AND 12 HOURS OFF IN A 24 HOURS chlorhexidi Yes RINSE UT ne 1-20 MOUTH WITH Health (Peridex) 00:00: 15ML 0.12 % 00 INDICATED solution AT BEDTIME. SPIT, DO NOT SWALLOW chlorhexidi Yes RINSE UT ne 1-20 MOUTH WITH Health (Peridex) 00:00: 15ML 0.12 % 00 INDICATED solution AT BEDTIME. SPIT, DO NOT SWALLOW timolol Yes INSTILL 1 Metho di (TIMOPTIC) 8-[address] 0.5 % 00:00: BOTH EYES Hospita ophthalmic 00 2 TIMES A l solution DAY bimatoprost Yes 1[drp] QD Administer [facility] (LUMIGAN) 5-[address] 0.01 % 10:05: both eyes Hospit a ophthalmic 45 nightly. l drops venlafaxine Yes 75mg QD Take 75 mg [facility] XR 4-[address] (EFFEXOR-XR 00:00: daily. Hosp seb ) 75 MG 24 00 l hr capsule triamcinolo Yes APPLY TO Me thodi ne 4-[address] (KENALOG) 00:00: AREA TWICE Ho spita 0.5 % cream 00 A DAY l BONIVA 150 Yes TAKE BY Meth marie mg tablet 3-[address] 00:00: TABLET Hospita 00 EVERY l MONTH BYSTOLIC 10 Yes 10mg QD Take 10 mg [facility] mg tablet 3-[address] 00:00: daily. Hospita 00 l omeprazole 0 Yes QD Take by Meth marie (PriLOSEC) 3-[address] 40 MG 00:00: daily. Hospita capsule 00 l levothyroxi 2018-0 Yes 75ug QD Take 75 Met hodi ne 3-[address] (SYNTHROID, 00:00: mouth Hospi ta LEVOXYL) 75 00 daily. l mcg tablet Immunizations Ordered Immunization Filled Immunization Date Status Commen ts Source Name Name KARLEY COVID-19 MRNA 2021-03-22 Completed Meth odist VACCINATION 00:00:00 [facility] PFIZER COVID-19 MRNA 2020-08-31 Completed Meth odist VACCINATION 00:00:00 [facility] PFIZER COVID-19 MRNA 2020-08-10 Completed Meth odist VACCINATION 00:00:00 Hospital Influenza, 2020-03-10 Completed [facility] injectable, 00:00:00 quadrivalent (afluria, fluzone) Influenza, 2020-03-10 Completed [facility] injectable, 00:00:00 quadrivalent (afluria, fluzone) Procedures This patient has no known procedures. Plan of Care Planned Activity Planned Date Details Comments Source Future Scheduled 2022-02-17 HEPATITIS B VACCINES Met [facility] Test 07:45:52 (1 of 3 - 3-dose series) [code = HEPATITIS B VACCINES (1 of 3 - 3-dose series)] Future Scheduled 2022-02-17 65+ [facility] 07:[facility] VACCINE (1 - PCV) [code = 65+ PNEUMOCOCCAL VACCINE (1 - PCV)] Future Scheduled 2022-02-17 SHINGLES VACCINES (1 Met [facility] Test 07:45:52 of 2) [code = SHINGLES VACCINES (1 of 2)] Future Scheduled 2022-02-17 COVID-19 VACCINE (4 - Me [facility] Test 07:45:52 Booster for Pfizer series) [code = COVID-19 VACCINE (4 - Booster for Pfizer series)] Future Scheduled 2022-02-17 INFLUENZA VACCINE Method [facility] Test 07:45:52 [code = INFLUENZA VACCINE] Encounters Start End Encounter Admission Attending Care Care Encounter Source Date/Time Date/Time Type Type Clinicians Facility Department ID 2021-07-08 Outpatient [facility] [id number] [place] 11:49:57 [facility] 2021-07-02 Outpatient [facility] [id number] [place] 13:37:21 [facility] 2021-06-11 Outpatient [facility] [id number] UT 09:01:29 [facility] 2021-03-18 [facility] [id number] 11:23:25 [facility] 2021-03-12 Outpatient [facility] [id number] UT 13:38:52 Health 2021-01-23 Outpatient MAURICIO, [facility] [id number] UT 01:03:46 [facility] 2021-01-22 Outpatient [facility] [id number] UT 13:52:59 Health 2021-01-21 Outpatient MAURICIO, [facility] [id number] UT 11:57:04 [facility] 2021-01-15 Outpatient [facility] [id number] UT 10:31:42 Health 2022-07-28 2022-07-28 Outpatient MAURICIO, [facility] [id number] UT 10:00:00 10:00:00 [facility] 2022-03-11 2022-03-11 Outpatient TITO, [facility] [id number] UT 11:20:00 11:20:00 [facility] 2022-01-20 2022-01-20 Office Martínez [facility] 6414 [id number] [place] 09:45:00 10:39:[address] [id number] Health [id number] 2022-01-20 2022-01-20 Outpatient [facility] [id number] UT 09:45:00 09:45:00 Health 2022-01-13 2022-01-13 Telephonic TITO [facility] 6400 [id number] MT 10:40:00 10:40:[address] [id number] Health [id number] 2021-07-08 2021-07-08 Office Mauricio [facility] 6414 [id number] UT 10:45:00 11:50:[address] [id number] Health [id number] 2021-03-22 2021-03-22 Clinical 1.2.840.1 [id number] Method[facility] 11:35:00 12:30:[address] 3.430.2.7 Hospit a .[id number] l .8 2021-03-22 2021-03-22 Travel 1.2.840.1 [id number] Methodi 00:00:00 00:00:[address] 3.430.2.7 0.2.7.3.698 Ho spita .3.422751 084.8 l .8 2021-03-22 2021-03-22 Outpatient [facility] [id number] [place] 00:00:00 00:00:[address] 2021-03-18 2021-03-18 Office Mor, [facility] [id number] [place] 10:30:51 11:24:12 Visit Penelope TRAUMA [id number] Health CLINIC [id number] 2021-03-16 2021-03-16 Travel 1.2.840.1 [id number] [id number] [facility] 00:00:00 00:00:[address] 3.430.2.7 0.2.7.3.698 Ho spita .3.321276 084.8 l .8 2021-01-21 2021-01-21 Office Mor, [facility] [id number] [place] 10:58:49 12:04:49 Visit Penelope TRAUMA [id number] Health CLINIC [id number] 2020-12-22 2020-12-29 Inpatient Rowdy CASTILLO, [facility] [id number] [facility] 12:24:00 20:00:00 [facility] 2020-08-31 2020-08-31 Outpatient JAILYN [facility] [id number] [place] 00:00:00 00:00:00 BEREKET [address] 2020-08-10 2020-08-10 Outpatient [facility] [id number] [place] 00:00:00 00:00:[address] 2020-03-25 2020-03-25 Outpatient Jennifer FLOR [facility] [id number] [place] 00:00:00 00:00:[address] Results This patient has no known results.
[2022-03-10 13:35] LABS: Absolute Lymphocytes (CBC) 1.1 K/uL (0.7-4.9); Hematocrit 31.2 % (36.0-45.0); Lymphocytes % 25.3 % (15.3-44.8); MCV 98.8 fL (80-100); MPV 9.1 fL (7.6-11.3); RBC Red Blood Cell Count 3.15 M/uL (3.86-4.86)
[2022-03-10 13:49] LABS: Protime INR 1.7
[2022-03-10 13:58] LABS: Albumin 3.4 g/dL (3.4-5.0); Bilirubin Direct 0.1 mg/dL (0-0.2); Bilirubin Total 0.4 mg/dL (0.2-1.0); Magnesium 1.7 mg/dL (1.8-2.4); Potassium 5.4 mmol/L (3.5-5.1); Protein, Total 7.5 g/dL (6.4-8.2); Troponin High Sensitivity 28.4 pg/mL (<58.9)
[2022-03-10 14:04] LABS: Urine Blood 3+ (Negative); Urine Glucose Negative (Negative); Urine Protein 1+ (Negative); Urine pH 5.5 (5.0-7.0)
[2022-03-10 14:16] LABS: SARS-CoV-2 Antigen Rapid Res Negative (Negative)
[2022-03-10] MEDS ORDERED: NA CHLORIDE 0.9% 1,000 ML ONE ×2 (14:25→18:33)
--- NOTE | 2022-03-10 14:29 | ER ---
Nurse's Notes [facility] Name: Ambar Jay Age: 81 yrs Sex: Female : 1940 Arrival Date: 03/10/2022 Time: 13:10 Bed 19 Private MD: Samm Mesa Diagnosis: Acute Kidney Injury;Dehydration Presentation: 03/10 13:13 Chief complaint: Patient states: sent by Dr. Mesa, was told her lab work showed she jh5 was in renal failure and she was dehydrated and needed an IV. Coronavirus screen: At this time, the client does not indicate any symptoms associated with coronavirus-19. Ebola Screen: Patient negative for fever greater than or equal to 101.5 degrees Fahrenheit, and additional compatible Ebola Virus Disease symptoms Patient denies exposure to infectious person. Patient denies travel to an Ebola-affected area in the 21 days before illness onset. No symptoms or risks identified at this time. Initial Sepsis Screen: Does the patient meet any 2 criteria? No. Patient's initial sepsis screen is negative. Does the patient have a suspected source of infection? No. Patient's initial sepsis screen is negative. Risk Assessment: Do you want to hurt yourself or someone else? Patient reports no desire to harm self or others. 13:13 Method Of Arrival: Wheelchair [facility] 13:13 Acuity: ANTWAN 3 [facility] 03/11 00:20 Onset of symptoms was March 10, 2022. aa9 Historical: - Allergies: 03/10 13:14 Darvon; [facility] - PMHx: 13:14 Glaucoma; colon cancer; Hypothyroidism; Depression; GERD; Hypertension; [facility] - PSHx: 13:35 R hip SX; mb8 - Immunization history:: Adult Immunizations up to date. - Social history:: Smoking status: Patient denies any tobacco usage or history of. Screenin:29 Abuse screen: Denies threats or abuse. Denies injuries from another. Nutritional mb8 screening: No deficits noted. Tuberculosis screening: No symptoms or risk factors identified. Fall Risk No fall in past 12 months (0 pts). Secondary diagnosis (15 points) IV access (20 points). Ambulatory Aid- None/Bed Rest/Nurse Assist (0 pts). Gait- Normal/Bed Rest/Wheelchair (0 pts) Mental Status- Oriented to own ability (0 pts). Total Rivera Fall Scale indicates Low Risk Score (25-44 pts). Fall prevention measures have been instituted. Side Rails Up X 2 Family Present and informed to notify staff if they need to leave bedside As available Patient and Family Educated on Fall Prevention Program and strategies. Assessment: 13:25 Pain: Denies pain. Neuro: Level of Consciousness is awake, alert, obeys commands, mb8 Oriented to person, place, time, situation, Appropriate for age [employer] Principal are weak bilaterally Moves all extremities. Full function Weakness Gait is steady, Speech is normal, Facial symmetry appears normal, Pupils are PERRLA, Pupil Size: 3 Intact. 13:29 GI: Patient currently denies diarrhea, nausea, vomiting. : Denies burning with mb8 urination, inability to void, urinary frequency. 13:34 General: Appears in no apparent distress. Behavior is calm, cooperative, appropriate mb8 for age. 19:27 General: Appears uncomfortable, Behavior is cooperative, appropriate for age. Pain: aa9 Denies pain. Neuro: Level of Consciousness is awake, alert, obeys commands, Oriented to person, place, time, situation, Appropriate for age. Cardiovascular: Patient's skin is warm and dry. Respiratory: Airway is patent Respiratory effort is even, unlabored. GI: Patient currently denies diarrhea, nausea, vomiting. 22:04 Reassessment: Patient appears in no apparent distress at this time. Patient and/or aa9 family updated on plan of care and expected duration. Pain level reassessed. Patient is alert, oriented x 3, equal unlabored respirations, skin warm/dry/pink. 23:18 Reassessment: Patient appears in no apparent distress at this time. Patient and/or aa9 family updated on plan of care and expected duration. Pain level reassessed. Patient is alert, oriented x 3, equal unlabored respirations, skin warm/dry/pink. Vital Signs: 13:13 BP 109 / 58; Pulse 78; Resp 16; Pulse Ox 100% on R/A; Weight 62.6 kg; Height 5 ft. 0 jh5 in. (152.40 cm); 14:21 Pulse 74; Resp 18; Temp 97.9(T); Pulse Ox 98% ; Pain 0/10; mb8 15:22 BP 126 / 92; Pulse 64; Resp 16; Pulse Ox 98% ; Pain 0/10; mb8 21:00 BP 127 / 48; Pulse 70; Resp 15 S; Pulse Ox 97% on R/A; aa9 23:00 BP 125 / 68; Pulse 75; Resp 18 S; Pulse Ox 99% on R/A; aa9 13:13 Body Mass Index 26.95 (62.60 kg, 152.40 cm) [facility] ED Course: 13:10 Patient arrived in ED. mr 13:10 Samm Mesa MD is Private Physician. mr 13:14 Sagar Ritchie PA is PHCP. [facility] 13:14 Williams Calix MD is Attending Physician. m 13:14 Triage completed. [facility] 13:25 Александр Torres, HÉCTOR is Primary Nurse. mb8 13:25 Inserted saline lock: 20 gauge in left antecubital area, using aseptic technique. Blood mb8 collected. 13:30 Patient has correct armband on for positive identification. Bed in low position. Call mb8 light in reach. Side rails up X2. Client placed on continuous cardiac and pulse oximetry monitoring. NIBP monitoring applied. Warm blanket given. 13:30 Arm band placed on. mb8 13:30 No provider procedures requiring assistance completed. mb8 13:35 Basic Metabolic Panel Sent. mb8 13:35 CBC with Diff Sent. mb8 13:35 LFT's Sent. mb8 13:35 Magnesium Sent. mb8 13:35 NT PRO-BNP Sent. mb8 13:35 PT-INR Sent. mb8 13:35 Troponin HS Sent. mb8 14:08 XRAY Chest (1 view) In Process Unspecified. EDMS 14:28 Sidney Han MD is Hospitalizing Provider. [facility] 23:19 Warm blanket given. aa9 03/11 00:20 Patient admitted, IV remains in place. aa9 Administered Medications: 03/10 14:30 Drug: NS 0.9% 500 ml Route: IV; Rate: bolus; Site: left antecubital; mb8 15:22 Follow up: IV Status: Completed infusion mb8 Medication: 13:29 VIS not applicable for this client. mb8 Outcome: 14:28 Decision to Hospitalize by Provider. [facility] 03/11 00:20 Admitted to ER Hold. Please see [facility] for further documentation. aa9 Condition: stable Instructed on the need for admit. 10:28 Patient left the ED. mb8 Signatures: Dispatcher [employer] EDMS Sagar Ritchie PA PA jmm Rivera, Mary mr Rees, Jessica, RN RN jh5 Kathleen Aleman, RN RN aa9 Александр Torres RN RN mb8
--- NOTE | 2022-03-10 14:29 | EDPHYS ---
Physician Documentation [facility] Name: Ambar Jay Age: 81 yrs Sex: Female : 1940 Arrival Date: 03/10/2022 Time: 13:10 Bed 19 Private MD: Samm Mesa ED Physician Williams Calix HPI: 03/10 13:23 This 81 yrs old Female presents to ER via Wheelchair with complaints of Renal jmm failure per DR. 13:23 This is an 81-year-old female with history of glaucoma, colon cancer, hypothyroidism, jmm depression, GERD, hypertension the presents emerged department complaints of weakness and fatigue. Patient had outpatient labs drawn which resulted today. Advised by PCP to go to the ED due to concerns for acute renal failure. Patient denies chest pain but states having some shortness of breath. Patient states she has had decreased appetite and decreased oral intake over the past 2 weeks. Historical: - Allergies: 13:14 Darvon; [facility] - PMHx: 13:14 Glaucoma; colon cancer; Hypothyroidism; Depression; GERD; Hypertension; [facility] - PSHx: 13:35 R hip SX; mb8 - Immunization history:: Adult Immunizations up to date. - Social history:: Smoking status: Patient denies any tobacco usage or history of. ROS: 13:23 Constitutional: Positive for jmm 13:23 Constitutional: Positive for fatigue. 13:23 Respiratory: Positive for shortness of breath. 13:23 All other systems are negative. Exam: 13:23 Constitutional: This is a well developed, well nourished patient who is awake, alert, jmm and in no acute distress. Head/Face: atraumatic. Eyes: EOMI, no conjunctival erythema appreciated ENT: Moist Mucus Membranes Neck: Trachea midline, Supple Chest/axilla: Normal chest wall appearance and motion. Cardiovascular: Regular rate and rhythm. No edema appreciated Respiratory: Normal respirations, no respiratory distress appreciated Abdomen/GI: Non distended Back: Normal ROM Skin: General appearance color normal MS/ Extremity: Moves all extremities, no obvious deformities appreciated, no edema noted to the lower extremities Neuro: Awake and alert Psych: Behavior is normal, Mood is normal, Patient is cooperative and pleasant Vital Signs: 13:13 BP 109 / 58; Pulse 78; Resp 16; Pulse Ox 100% on R/A; Weight 62.6 kg; Height 5 ft. 0 [facility] in. (152.40 cm); 14:21 Pulse 74; Resp 18; Temp 97.9(T); Pulse Ox 98% ; Pain 0/10; mb8 15:22 BP 126 / 92; Pulse 64; Resp 16; Pulse Ox 98% ; Pain 0/10; mb8 21:00 BP 127 / 48; Pulse 70; Resp 15 S; Pulse Ox 97% on R/A; aa9 23:00 BP 125 / 68; Pulse 75; Resp 18 S; Pulse Ox 99% on R/A; aa9 13:13 Body Mass Index 26.95 (62.60 kg, 152.40 cm) 5 MDM: 13:23 Patient medically screened. [facility] 14:08 Data reviewed: vital signs, nurses notes. [facility] 14:27 Counseling: I had a detailed discussion with the patient and/or guardian regarding: the [facility] historical points, exam findings, and any diagnostic results supporting the discharge/admit diagnosis, lab results, the need for further work-up and treatment in the hospital. ED course: I discussed the patient with Dr. Han excepted the patient to his service. 03/10 13:23 Order name: Basic Metabolic Panel; Complete Time: 13:59 [facility] 03/10 13:23 Order name: CBC with Diff [facility] 03/10 13:23 Order name: LFT's; Complete Time: 13:59 [facility] 03/10 13:23 Order name: Magnesium; Complete Time: 13:59 [facility] 03/10 13:23 Order name: NT PRO-BNP; Complete Time: 13:59 [facility] 03/10 13:23 Order name: PT-INR; Complete Time: 13:59 [facility] 03/10 13:23 Order name: Troponin HS; Complete Time: 13:59 [facility] 03/10 13:32 Order name: SARS RAPID; Complete Time: 14:16 [facility] 03/10 14:04 Order name: Urine Dipstick-Ancillary; Complete Time: 14:04 [facility] 03/10 16:03 Order name: Basic Metabolic Panel [facility] 03/10 16:03 Order name: Basic Metabolic Panel [facility] 03/10 16:03 Order name: Basic Metabolic Panel [facility] 03/10 16:03 Order name: Basic Metabolic Panel [facility] 03/10 16:03 Order name: CBC with Automated Diff [facility] 03/10 13:23 Order name: XRAY Chest (1 view); Complete Time: 14:36 [facility] 03/10 13:23 Order name: EKG; Complete Time: 13:24 [facility] 03/10 13:23 Order name: Cardiac monitoring; Complete Time: 13:35 [facility] 03/10 13:23 Order name: EKG - Nurse/Tech; Complete Time: 13:51 [facility] 03/10 13:23 Order name: IV Saline Lock; Complete Time: 13:36 [facility] 03/10 16:03 Order name: CONS Physician Consult [facility] 03/10 16:03 Order name: Renal [facility] 03/10 16:03 Order name: CBC with Automated Diff [facility] 03/10 16:03 Order name: Magnesium [facility] 03/10 16:03 Order name: Magnesium [facility] 03/10 16:03 Order name: Phosphorus [facility] 03/10 16:03 Order name: Phosphorus [facility] 03/10 19:57 Order name: US; Complete Time: 20:00 [facility] 03/10 20:01 Order name: Uric Acid; Complete Time: 20:17 [facility] 03/10 20:01 Order name: Creatine Phosphokinase; Complete Time: 20:17 [facility] 03/10 13:23 Order name: Labs collected and sent; Complete Time: 13:36 [facility] 03/10 13:23 Order name: O2 Per Protocol; Complete Time: 13:36 [facility] 03/10 13:23 Order name: O2 Sat Monitoring; Complete Time: 13:36 [facility] 03/10 13:23 Order name: Urine Dipstick-Ancillary (obtain specimen); Complete Time: 14:21 [facility] Administered Medications: 14:30 Drug: NS 0.9% 500 ml Route: IV; Rate: bolus; Site: left antecubital; mb8 15:22 Follow up: IV Status: Completed infusion mb8 Disposition Summary: 03/10/22 14:28 Hospitalization Ordered Hospitalization Status: Observation [facility] Provider: Sidney Han Condition: Stable jm Problem: an acute exacerbation jmm Symptoms: are unchanged [facility] Bed/Room Type: Standard [facility] Location: Telemetry/MedSurg (Inpatient)(03/11/22 09:32) eb Room Assignment: 410(10/14/22 09:32) eb Diagnosis - Acute Kidney Injury jmm - Dehydration [facility] Forms: - Medication Reconciliation Form [facility] - SBAR form [facility] Addendum: 03/14/2022 23:58 Co-signature as Attending Physician, Williams Calix MD. r n Signatures: Dispatcher [employer] EDMS Sagar Ritchie PA PA jmm Nieto, Roman, MD MD rn Garcia, Cindy RN RN Lisandra Irizarry Jessica RN RN jh5 Kathleen Aleman RN RN aa9 Александр Torres RN RN mb8 Corrections: (The following items were deleted from the chart) 03/10 14:27 14:08 Counseling: I had a detailed discussion with the patient and/or guardian zac regarding: the historical points, exam findings, and any diagnostic results supporting the discharge/admit diagnosis, lab results, the need for outpatient follow up, to return to the emergency department if symptoms worsen or persist or if there are any questions or concerns that arise at home, [facility] :56 14:28 Telemetry/MedSurg (observation) [facility] : 14:28 [facility] cg 03/11 09:32 03/10 21:56 [facility] ER [facility] eb 03/11 09:32 03/10 21:[facility]
--- NOTE | 2022-03-10 14:30 | RAD REPORT ---
EXAM DESCRIPTION: RAD - Chest Single View - 03/10/2022 2:06 pm CLINICAL HISTORY: weakness Chest pain. COMPARISON: Chest Single View dated 07/12/2021; Chest Single View dated 12/21/2020; Chest Pa And Lat ( 2 Views) dated 08/20/2020; Chest Single View dated 11/30/2019 FINDINGS: Portable technique limits examination quality. The lungs are grossly clear. The heart is normal in size. No displaced fractures. IMPRESSION: No acute intrathoracic process suspected.
[2022-03-10] MEDS ORDERED: NA CHLORIDE 0.9% 500 ML IV ONE (16:02)
[2022-03-10 16:21] VITALS: BMI 26.9
--- NOTE | 2022-03-10 18:12 | P.HP ---
Certification for Inpatient Patient admitted to: Observation With expected LOS: <2 Midnights Patient will require the following post-hospital care: None Practitioner: I am a practitioner with admitting privileges, knowledge of patient current condition, hospital course, and medical plan of care. Services: Services provided to patient in accordance with Admission requirements found in Title 42 Section 412.3 of the Code of Federal Regulations Patient History Date of Service: 03/10/22 Primary Care Provider: Dr. Mesa Reason for admission: Acute Kidney Injury History of Present Illness: Ms. Ambar Jay is a pleasant 81 year old female who has a past medical history of colon cancer s/p partial colectomy with colostomy, chronic kidney disease stage III, hypertension, hypothyroidism, depression, and gastroesophageal reflux disease who presents to the [facility] Emergency Department for an elevated creatinine level. She reports that, about 8 days ago, she presented to her PCP (Dr. Mesa) with dysuria and urinary frequency. She states that she was prescribed an antiobiotic, and about 3 days ago, she had began to develop gross hematuria. She had outpatient labs done with Dr. Mesa, and was called and told to present to the Emergency Department due to abnormal "kidney levels." She denies any symptoms at this time except generalized weakness. On review of systems, she denies any fevers, chills, headaches, dizziness, syncope, chest pain, palpitations, shortness of breath, wheezing, cough, abdominal pain, nausea/vomiting, diarrhea, constipation, hematochezia, melena, dysuria, myalgia, or any other symptoms. She presented to the Emergency Department for further evaluation. Upon presentation, her vital signs were stable. Her laboratory studies were notable for a bicarbonate of 17, a BUN of 72, and a creatinine of 3.23 (baseline ~1.6-1.7). EKG was without STEMI criteria. Chest x-ray revealed, "no acute intrathoracic process suspected." She was admitted to the General Internal Medicine service for further evaluation. Allergies propoxyphene HCl [From Darvon] Allergy (Verified 08/20/20 13:09) Itching Home Medications: Latanoprost [Xalatan] 1 drop EACH EYE BEDTIME 08/29/13 Levothyroxine [Synthroid*] 1 tab PO DAILY 08/29/13 Nebivolol HCl [Bystolic] 1 tab PO NOON 08/29/13 Venlafaxine HCl *Xr* [Effexor XR] 1 tab PO DAILY 08/29/13 Allopurinol 100 mg PO DAILY 03/10/22 Calcium Carbonate [Tums Regular] 1,000 mg PO DAILY 03/10/22 Famotidine 20 mg PO DAILY 03/10/22 Gabapentin 300 mg PO BEDTIME 03/10/22 Losartan/Hydrochlorothiazide [Losartan-Hctz 50-12.5 mg Tab] 1 tab PO DAILY 03/10/22 Rivaroxaban [Xarelto] 2.5 mg PO DAILY 03/10/22 - Past Medical/Surgical History Has patient received pneumonia vaccine in the past: Yes Diabetic: No -: Gerd -: Hypothyroid -: Depression -: CKD3 -: colon cancer -: Colostomy - Family History Family History: Reviewed- Non-Contributory - Social History Smoking Status: Never smoker Alcohol use: No CD- Drugs: No Caffeine use: No Review of Systems 10-point ROS is otherwise unremarkable General: Weakness Eyes: Unremarkable ENT: Unremarkable Respiratory: Unremarkable Cardiovascular: Unremarkable Gastrointestinal: Other (colostomy) Genitourinary: Hematuria Musculoskeletal: Unremarkable Integumentary: Unremarkable Neurological: Unremarkable Lymphatics: Unremarkable Physical Examination - Vital Signs Temperature: 97.9 F Blood Pressure: 109/58 Pulse: 74 Respirations: 18 Pulse Ox (%): 98 - Physical Exam General: Alert, In no apparent distress, Oriented x3 HEENT: Atraumatic, PERRLA, Mucous membr. moist/pink, EOMI, Sclerae nonicteric Neck: Supple, JVD not distended Respiratory: Clear to auscultation bilaterally, Normal air movement Cardiovascular: No edema, Regular rate/rhythm, Normal S1 S2, No gallops, No rubs, No murmurs Gastrointestinal: Normal bowel sounds, Soft and benign, Non-distended, No tenderness, No rebound, No guarding, Other (colostomy with green/brown liquid stool) Musculoskeletal: No clubbing Integumentary: No rashes Neurological: Normal speech, Cranial nerves 3-12 intact, Normal affect - Studies Laboratory Data (last 24 hrs) 03/10/22 13:28: PT 18.7 H, INR 1.70 03/10/22 13:28: WBC 4.40, Hgb 10.6 L, Hct 31.2 L, Plt Count 179 03/10/22 13:28: Sodium 131 L, Potassium 5.4 H, BUN 72 H, Creatinine 3.23 H, Glucose 88, Magnesium 1.7 L, Total Bilirubin 0.4, AST 30, ALT 28, Alkaline Phosphatase 95 Assessment and Plan - Plan # KDIGO Stage II Acute Kidney Injury on Chronic Kidney Disease Stage III # Metabolic Acidosis secondary to above # Mild Hyperkalemia # Gross Hematuria Recently prescribed an antibiotic, but name unknown - concerned that it may have been sulfamethoxazole-trimethoprim - Consulted Nephrology and spoke with Dr. Sanford - recommendations appreciated - Requested Normal Saline @ 75 mL/hr - Requested CK, uric acid levels - Creatinine = 3.23 (baseline creatinine ~1.6-1.7) - Urinalysis = 1+ leukocyte esterase, 1+ protein, 3+ blood - Monitor creatinine and urine output - Obtain renal ultrasound - Renally dose medications # Colon Cancer s/p Partial Colectomy with colostomy # Hypertension # Hypothyroidism # Depression # Gastroesophageal Reflux Disease - She does not know her home medications - her son is going to her house to get the prescription bottles - Resume home medications once reconciled Sidney Han M.D. - Advance Directives Does patient have a Living Will: No Does patient have a Durable POA for Healthcare: No
[2022-03-10] MEDS: NA CHLORIDE 0.9% 1,000 ML IV SCH (18:35)
--- NOTE | 2022-03-10 19:55 | RAD REPORT ---
EXAM DESCRIPTION: US - Renal Ultrasound-Complete - 03/10/2022 7:48 pm CLINICAL HISTORY: NANCY Flank pain COMPARISON: Renal Ultrasound-Complete dated 01/14/2020 FINDINGS: Both kidneys are mildly echogenic. The right kidney measures 8.7 x 4.3 x 4.0 cm. No hydronephrosis, focal mass or perinephric fluid. The left kidney measures 9.5 x 5.3 x 3.2 cm. No hydronephrosis, focal mass or perinephric fluid. The urinary bladder is incompletely distended without gross abnormality seen. IMPRESSION: Mildly echogenic kidneys bilaterally, compatible with underlying medical renal disease.
[2022-03-10 20:01] LABS: Uric Acid 5.8 mg/dL (2.6-6.0)
[2022-03-10] MEDS: HEPARIN 5000 UNIT/ML 1 ML VIAL SQ SCH (21:00)
[2022-03-11] MEDS ORDERED: HEPARIN 5000 UNIT/ML 1 ML VIAL ONE ×2 (00:47→09:02)
[2022-03-11 04:41] LABS: Absolute Lymphocytes (CBC) 1.4 K/uL (0.7-4.9); Hematocrit 30.1 % (36.0-45.0); Lymphocytes % 35.1 % (15.3-44.8); MCV 100.3 fL (80-100); MPV 9.6 fL (7.6-11.3); RBC Red Blood Cell Count 3.01 M/uL (3.86-4.86)
[2022-03-11 04:52] LABS: Magnesium 1.6 mg/dL (1.8-2.4); Potassium 4.9 mmol/L (3.5-5.1)
[2022-03-11] MEDS ORDERED: INFLUENZA VACCINE (for 6+ mo) 0.5 ML DOSE IMVAC ONE (08:00)
[2022-03-11] MEDS: NA CHLORIDE 0.9% 1,000 ML IV SCH ×2 (08:20→11:13)
[2022-03-11] MEDS: HEPARIN 5000 UNIT/ML 1 ML VIAL SQ SCH ×2 (09:00→21:03)
[2022-03-11 11:07] VITALS: O2SAT 99
--- NOTE | 2022-03-11 11:42 | EKG ---
Test Date: 2022-03-10 Test Time: 13:38:38 [employer] W[employer] Packer: MEASUREMENT RESULTS: Intervals: Rate: 73 NC: 184 QRSD: 70 QT: 352 QTc: 387 Cutler: P: 50 NC: 184 QRS: -18 T: 65 INTERPRETIVE STATEMENTS: Normal sinus rhythm Low voltage QRS Cannot rule out Anterior infarct, age undetermined Abnormal ECG Compared to ECG 07/12/2021 19:26:56 Low QRS voltage now present Myocardial infarct finding still present Electronically Signed On 03-11-22 11:39:04 CDT by Luciano Castillo
--- NOTE | 2022-03-11 12:11 | P.CNS ---
Date of Consult: 03/11/22 Reason for Consult: NANCY Requesting Physician: Sidney Han Primary Care Provider: Dr. Mesa Chief Complaint: Acute Kidney Injury History of Present Illness: 81F w/ PMHx of [id number], baseline SCr 1.6-1.7 (equiv GFR 29-31), colon cancer s/p partial colectomy with colostomy, hypertension, hypothyroidism, depression, gastroesophageal reflux disease, & recent UTI, admitted for NANCY. She was dx'ed w/ UTI 1.5 wks ago, & started taking levaquin on 02/28/2022. She reports having generalized pruritus starting a few days after being on levofloxacin. Also reports having gross hematuria that seems to have now resolved. SCr at 3.2 on adm, received IV fluids, SCr improved to 2.4. Allergies propoxyphene HCl [From Darvon] Allergy (Verified 08/20/20 13:09) Itching Home Medications: Latanoprost [Xalatan] 1 drop EACH EYE BEDTIME 08/29/13 Levothyroxine [Synthroid*] 1 tab PO DAILY 08/29/13 Nebivolol HCl [Bystolic] 1 tab PO NOON 08/29/13 Venlafaxine HCl *Xr* [Effexor XR] 1 tab PO DAILY 08/29/13 Allopurinol 100 mg PO DAILY 03/10/22 Calcium Carbonate [Tums Regular] 1,000 mg PO DAILY 03/10/22 Famotidine 20 mg PO DAILY 03/10/22 Gabapentin 300 mg PO BEDTIME 03/10/22 Losartan/Hydrochlorothiazide [Losartan-Hctz 50-12.5 mg Tab] 1 tab PO DAILY 03/10/22 Rivaroxaban [Xarelto] 2.5 mg PO DAILY 03/10/22 - Past Medical/Surgical History Diabetic: No -: Gerd -: Hypothyroid -: Depression -: CKD3 -: colon cancer -: Colostomy - Social History Smoking Status: Never smoker Alcohol use: No CD- Drugs: No Caffeine use: No Place of Residence: Home Review of Systems General: Weakness Eyes: Unremarkable ENT: Unremarkable Cardiovascular: Unremarkable Gastrointestinal: Unremarkable Genitourinary: Dysuria Musculoskeletal: Unremarkable Integumentary: Rash, Unremarkable (Generalized pruritus) Neurological: Weakness Lymphatics: Unremarkable Physical Examination Temp Pulse Resp BP Pulse Ox 98.8 F 78 21 H 130/32 L 100 03/11/22 03:34 03/11/22 08:00 03/11/22 08:00 03/11/22 08:00 03/11/22 08:00 General: Other (Appears as her stated age) HEENT: Atraumatic, Normocephalic Neck: Supple, JVD not distended Respiratory: Other (Symmetric chest expansion) Cardiovascular: No rubs, No murmurs Gastrointestinal: Soft and benign, No rebound Musculoskeletal: No clubbing Integumentary: Rash(es) Neurological: Normal speech, Normal tone Lymphatics: No axilla or inguinal lymphadenopathy Urinary: Other (No bladder distention) External genitalia: Deferred Rectal: Deferred Laboratory Data (last 24 hrs) 03/10/22 13:28: PT 18.7 H, INR 1.70 03/10/22 13:28: WBC 4.40, Hgb 10.6 L, Hct 31.2 L, Plt Count 179 03/10/22 13:28: Sodium 131 L, Potassium 5.4 H, BUN 72 H, Creatinine 3.23 H, Glucose 88, Magnesium 1.7 L, Total Bilirubin 0.4, AST 30, ALT 28, Alkaline Phosphatase 95 Conclusions/Impression: # NANCY 2/2 prerenal state +/- ATN from prolonged prerenal Improved SCr 3.2 on adm, improved to 2.4 today Trop neg, BNP elevated at 482 # [id number] presumed to be 2/2 Htn nephrosclerosis Baseline SCr 1.6-1.7 (equiv GFR 29-31) Proteinuria, mild at 04g on random UPCR Monitor renal panel # UTI Received levaquin, started on 02/28/2022 Urinalysis on 03/11 +pyuria. F/u UCx. # Gross hematuria Resolved, monitor # Generalized pruritus ? drug allergy/rash Per primary team # Hyponatremia Improved, liberal po fluid intake # HyperK Resolving, monitor, hydration as above # HyperPO4 Monitor # HypoMg Mg IV repletion today # Hx of colon cancer s/p partial colectomy with colostomy Per other services # Htn Cont current med regimen # Pancytopenia Per other services # Acidosis Bicitra po x 3 doses today
[2022-03-11] MEDS ORDERED: MAGNESIUM SULFATE 1 gm IVPB 1 GM/100 ML BAG IV ONE (13:21)
[2022-03-11] MEDS ORDERED: DIPHENHYDRAMINE 25 MG TAB/CAP PO ONE (14:00)
[2022-03-11 14:31] LABS: Blood Gas Oxyhemoglobin 95.6 % (94-97); Blood O2 Saturation 97.8 % (92-98.5)
[2022-03-11] MEDS: NA CIT/CITRIC AC 30 ML ORAL UDC PO SCH ×3 (15:08→21:18)
[2022-03-11 15:23] LABS: UR PROTEIN 29.9 mg/dL (<11.9); Urine Protein/Creatinine Ratio 0.36 ratio (<0.15)
[2022-03-11 15:25] LABS: Specific Gravity 1.014 (1.005-1.030); Urine Bilirubin NEGATIVE (Negative); Urine Blood 1+ (Negative); Urine Clarity Clear (Clear); Urine Color Light-Yellow (Yellow); Urine Glucose NEGATIVE (Negative); Urine Mucus Slight /HPF (None Seen); Urine Protein TRACE (Negative); Urine RBC <5 /HPF (None Seen); Urine Urobilinogen Normal (Normal)
[2022-03-11 17:10] LABS: Potassium 4.8 mmol/L (3.5-5.1)
--- NOTE | 2022-03-11 18:54 | P.PN ---
Subjective Date of Service: 03/11/22 Primary Care Provider: Dr. Mesa Chief Complaint: Acute Kidney Injury No acute events overnight. She reports no dysuria or hematuria. She reports a chronic rash beneath bilateral breasts. Her creatinine is down-trending. Review of Systems 10-point ROS is otherwise unremarkable Integumentary: Rash Physical Examination - Vital Signs Temperature: 96.9 F Blood Pressure: 165/70 Pulse: 73 Respirations: 16 Pulse Ox (%): 97 Assessment And Plan - Plan - Physical Exam Feather Renovator present for exam: Andressa Jain RN General: Alert, In no apparent distress, Oriented x3 HEENT: Atraumatic, PERRLA, Mucous membr. moist/pink, EOMI, Sclerae nonicteric Neck: Supple, JVD not distended Respiratory: Clear to auscultation bilaterally, Normal air movement Cardiovascular: No edema, Regular rate/rhythm, Normal S1 S2, No gallops, No rubs, No murmurs Gastrointestinal: Normal bowel sounds, Soft and benign, Non-distended, No tenderness, No rebound, No guarding, Other (colostomy with green/brown liquid stool) Musculoskeletal: No clubbing Integumentary: Erythematous, jimmy rash beneath breasts Neurological: Normal speech, Cranial nerves 3-12 intact, Normal affect - Plan # KDIGO Stage II Acute Kidney Injury on Chronic Kidney Disease Stage III # Metabolic Acidosis secondary to above # Mild Hyperkalemia # Gross Hematuria Recently prescribed an antibiotic, but name unknown - concerned that it may have been sulfamethoxazole-trimethoprim - Consulted Nephrology and spoke with Dr. Sanford - recommendations appreciated - Requested Normal Saline @ 75 mL/hr - Requested CK, uric acid levels - Creatinine = 3.23 (baseline creatinine ~1.6-1.7) - Urinalysis = 1+ leukocyte esterase, 1+ protein, 3+ blood - Monitor creatinine and urine output - Renal ultrasound = "mildly echogenic kidneys bilaterally, compatible with underlying medical renal disease." - Renally dose medications # Colon Cancer s/p Partial Colectomy with colostomy # Hypertension # Hypothyroidism # Depression # Gastroesophageal Reflux Disease - She does not know her home medications - her son is going to her house to get the prescription bottles - Resume home medications once reconciled # Candidiasis/Intertrigo Beneath Breasts - Start nystatin Sidney Han M.D.
[2022-03-11] MEDS ORDERED: ACETAMINOPHEN 500 MG TAB PO PRN (21:09)
[2022-03-12] MEDS: NA CHLORIDE 0.9% 1,000 ML IV SCH (03:00)
[2022-03-12 04:30] LABS: Magnesium 1.8 mg/dL (1.8-2.4); Potassium 4.4 mmol/L (3.5-5.1)
[2022-03-12 07:58] VITALS: BP 165/75; TEMP 98.7
[2022-03-12] MEDS ORDERED: PETROLATUM TOP SCH (09:00)
[2022-03-12] MEDS ORDERED: NYSTATIN 100MU/GM CREAM 15GM TOP SCH (09:00)
[2022-03-12] MEDS: HEPARIN 5000 UNIT/ML 1 ML VIAL SQ SCH (09:05)
--- NOTE | 2022-03-12 09:12 | P.DS ---
Admission Date: 03/10/22 Discharge Date: 03/12/22 Primary Care Provider: Dr. Mesa Disposition: ROUTINE DISCHARGE Discharge Condition: FAIR Reason for Admission: Acute Kidney Injury Brief History of Present Illness: Years of age admitted with acute on chronic renal failure Hospital Course: Patient was diagnosed with a UTI prior to admission and was prescribed an antibiotic for urinary frequency and hematuria mated with acute renal failure proved with IV fluids cultures negative patient has baseline chronic renal failure seen by nephrology at time of discharge alert oriented responsive cooperative vital signs normal oxygenation satisfactory patient had no complaints physical exam was normal to be discharged to resume her home medications avoid antibiotics creatinine 1.62 at the time of discharge no evidence of infection Vital Signs/Physical Exam: Temp Pulse Resp BP Pulse Ox 98.7 F 89 16 165/75 H 99 03/12/22 07:55 03/12/22 07:55 03/12/22 07:55 03/12/22 07:55 03/12/22 07:55 Laboratory Data at Discharge: WBC 4.10 K/uL (4.3-10.9) L 03/11/22 04:21 Hgb 10.0 g/dL (12.0-15.0) L 03/11/22 04:21 Hct 30.1 % (36.0-45.0) L 03/11/22 04:21 Plt Count 148 K/uL (152-406) L 03/11/22 04:21 PT 18.7 SECONDS (9.5-12.5) H 03/10/22 13:28 INR 1.70 03/10/22 13:28 Sodium 143 mmol/L (136-145) 03/12/22 03:12 Potassium 4.4 mmol/L (3.5-5.1) 03/12/22 03:12 BUN 47 mg/dL (7-18) H 03/12/22 03:12 Creatinine 1.62 mg/dL (0.55-1.3) H 03/12/22 03:12 Glucose 94 mg/dL (74-106) 03/12/22 03:12 Uric Acid 5.8 mg/dL (2.6-6.0) 03/10/22 19:38 Phosphorus 5.0 mg/dL (2.5-4.9) H 03/11/22 04:21 Magnesium 1.8 mg/dL (1.8-2.4) 03/12/22 03:12 Total Bilirubin 0.4 mg/dL (0.2-1.0) 03/10/22 13:28 AST 30 U/L (15-37) 03/10/22 13:28 ALT 28 U/L (12-78) 03/10/22 13:28 Alkaline Phosphatase 95 U/L (45-117) 03/10/22 13:28 Home Medications: Latanoprost [Xalatan] 1 drop EACH EYE BEDTIME 08/29/13 Levothyroxine [Synthroid*] 1 tab PO DAILY 08/29/13 Nebivolol HCl [Bystolic] 1 tab PO NOON 08/29/13 Venlafaxine HCl *Xr* [Effexor XR] 1 tab PO DAILY 08/29/13 Allopurinol 100 mg PO DAILY 03/10/22 Calcium Carbonate [Tums Regular*] 1,000 mg PO DAILY 03/10/22 Famotidine 20 mg PO DAILY 03/10/22 Gabapentin 300 mg PO BEDTIME 03/10/22 Losartan/Hydrochlorothiazide [Losartan-Hctz 50-12.5 mg Tab] 1 tab PO DAILY 03/10/22 Rivaroxaban [Xarelto] 2.5 mg PO DAILY 03/10/22 Followup: Samm Mesa MD [Primary Care Provider] -
== END 2022-03-12 10:57 | disposition home or self-care (01) ==
LOC: ER 13:04 → ERHOLD 15:58 → 4TH 03-11 10:16
PROVIDERS: ADMIT Internal Medicine; ATTEND Internal Medicine Sleep Medicine
DX: N17.9 Acute kidney failure, unspecified (principal); I12.9 Hypertensive chronic kidney disease with stage 1 through stage 4 chronic kidney disease, or unspecified chronic kidney disease; N18.32 Chronic kidney disease, stage 3b; E03.9 Hypothyroidism, unspecified; F32.A Depression, unspecified; K21.9 Gastro-esophageal reflux disease without esophagitis; E87.20 Acidosis, unspecified; E87.5 Hyperkalemia; R31.0 Gross hematuria; R21 Rash and other nonspecific skin eruption; N39.0 Urinary tract infection, site not specified; E87.1 Hypo-osmolality and hyponatremia; D61.818 Other pancytopenia; E83.42 Hypomagnesemia; E83.39 Other disorders of phosphorus metabolism; Z85.038 Personal history of other malignant neoplasm of large intestine; Z93.3 Colostomy status; Z88.8 Allergy status to other drugs, medicaments and biological substances
CPT/HCPCS: 36415; 71045; 76770; 80048; 80076; 81001; 81003; 82550; 82570; 82805; 83735; 83880; 83935; 84100; 84132; 84156; 84300; 84484; 84550; 85025; 85610; 87086; 87088; 87811; 93005; 96360; 97161; 99285; G0378; J1644; J3475; J7030

== ENCOUNTER 2022-06-22 09:00 | Emergency (ER) | payer OTHER ==
--- OUTSIDE RECORDS SUMMARY | 2022-06-22 09:10 | XMS REPORT | Continuity of Care Document ---
:1940 Author Organization [facility] t Address [address] [place] [address] Care Team Providers Name Role Phone Samm Mesa MD Primary Care Physician KIAN MARTÍNEZ Attending Clinician Unavailable RONALDO MIRAMONTES Attending Clinician Unavailable Penelope Alves Attending Clinician LORE CASTILLO Attending Clinician Unavailable BEREKET GLASER Attending Clinician Unavailable Jennifer FLOR Attending Clinician Unavailable LORE CASTILLO Admitting Clinician Unavailable Payers Payer Name Policy Type Policy Number Effective Date Expiration Date S ource [employer] MEDICARE [id number] 2020 2021 PPO 00:00:00 00:00:00 Problems Condition Condition Condition Status Onset Resolution Last Treating Co mments Source Name Details Category Date Date Treatment Clinician Date Acquired Acquired Disease Active [facility] hypothyroi hypothyroi 18 He alth dism dism 00:00: 00 Acute Acute Disease Active UT posthemorr posthemorr 18 He alth hagic hagic 00:00: anemia anemia 00 Chronic Chronic Disease Active UT kidney kidney 18 Health disease disease 00:00: due to due to 00 hypertensi hypertensi on on Colostomy Colostomy Disease Active UT present present 01-13 Health 00:00: 00 Embolism Embolism Disease Active UT and and 01-13 Health thrombosis thrombosis 00:00: of femoral of femoral 00 vein vein Fall Fall Disease Active UT 01-13 Health 00:00: 00 Gastro-eso Gastro-eso Disease Active U T phageal phageal 01-13 Health reflux reflux 00:00: disease disease 00 without without esophagiti esophagiti s s Gout Gout Disease Active UT 01-13 Health 00:00: 00 Hypomagnes Hypomagnes Disease Active U T emia emia 01-13 Health 00:00: 00 Herpesvira Herpesvira Disease Active U T l l 01-13 Health vesicular vesicular 00:00: dermatitis dermatitis 00 Increased Increased Disease Active UT band cell band cell 01-13 Heal th count count 00:00: 00 Major Major Disease Active depression depression 01-13 He alth , single [...] healing healing Vomiting Vomiting Disease Active UT 01-13 Health 00:00: 00 Closed Closed Disease Active [...] Malignant Malignant Disease Active UT neoplastic neoplastic 06-23 He alth disease disease 00:00: 00 Primary Primary Disease Active [facility] open angle open angle 20 st glaucoma glaucoma 00:00: Hospit a (POAG) of (POAG) of 00 l both eyes, both eyes, moderate moderate stage stage Ileus, Ileus, Disease Active [facility] postoperat postoperat 11-16 st amilcar amilcar 00:00: Hospita 00 l Electrolyt Electrolyt Disease Active M ethodi e and e and 11-10 st fluid fluid 00:00: Hospita disorder disorder 00 l Abdominal Abdominal Disease Active Met hodi pain pain 11-10 00:00: Hospita 00 l 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 11-10 with with 00:00: Hospita obstructio obstructio 00 l n and n and without without gangrene gangrene Allergies, Adverse Reactions, Alerts Allergy Allergy Status [...] Active Itching Metho di hene ty to [address] adverse 00:00: Hospita reaction 00 l s to drug Propoxyp Allergy Active Itching UT hene to 11-10 Health substanc 00:00: e 00 Social History Social Habit Start Date Stop Date Quantity Comments Source Exposure to 2022-03-15 2022-03-25 Not sure [facility] SARS-CoV-2 00:00:00 09:13:00 (event) Tobacco use and 2022-03-25 2022-03-25 Smokeless tobacco [facility] exposure 00:00:00 00:00:00 non-user Tobacco Comment 2022-03-25 2022-03-25 Smoking History [facility] 00:00:00 00:00:00 Packs/day: N. Recorded:03/23/20 21 Alcohol intake 2018-10-15 2018-10-15 Current drinker [facility] dist 00:00:00 00:00:00 of [facility] (finding) Sex Assigned At [birth year] [facility] 00:00:00 00:00:00 Hospital Smoking Status Start Date Stop Date Source Never smoked tobacco [facility] Medications Ordered Filled Start Stop Current Ordering Indication Dosage Frequency Signature Comments Components Source Medication Medication Date Date Medication? Clinician (SIG) Name Name lidocaine 2021-05- No [id number] 10mL UT PF 03-25 Health (Xylocaine) 15:11: 15:11 1 % 19 :00 injection 10 mL bupivacaine 2021-05- No [id number] 3mL U T PF 03-25 Health (Marcaine) 15:11: 15:11 0.25 % 19 :00 injection 3 mL dexamethaso 2021-05- No [id number] 10mg U T ne (PF) 03-25 Health (Decadron) 15:11: 15:11 injection 19 :00 10 mg iohexol 2021-05- No [id number] 2mL UT (OMNIPaque) 03-25 Health 300 MG/ML 15:11: 15:11 injection 2 19 :00 mL iohexol 2021-05- No [id number] 2mL 2 mL, Once UT (OMNIPaque) 03-25 PRN Health 300 MG/ML 15:11: 15:11 Procedure, injection 2 19 :00 Starting mL on Mon03/25/22 at 1011, For 1 dose dexamethaso 2021-05- No [id number] 10mg 10 mg, UT ne (PF) 03-25 Once PRN Health (Decadron) 15:11: 15:11 Procedure, injection 19 :00 Starting 10 mg on Mon03/25/22 at 1011, For 1 dose bupivacaine 2021-05- No [id number] 3mL 3 mL, Once UT PF 0-03-25 PRN Health (Marcaine) 15:11: 15:11 Procedure, 0.25 % 19 :00 Starting injection 3 on Fri mL 03/25/22 at 1011, For 1 dose lidocaine 2021-05- No [id number] 10mL 10 mL, U T PF 03-25 Once PRN Health (Xylocaine) 15:11: 15:11 Procedure, 1 % 19 :00 Starting injection on Fri 10 mL 03/25/22 at 1011, For 1 dose magnesium 2022-0 Yes Q6H every 6 UT hydroxide 8-18 (six) Health (Milk of 11:11: hours. Magnesia) 35 400 MG/5ML suspension phenol 2021-0 Yes 1 spray UT (Chlorasept 8-18 spit out [facility] ic) 1.4 % 11:11: after 15 liquid 35 seconds as needed oxyCODONE 2022-0 Yes Q6H every 6 UT (Roxicodone 8-18 ([facility]) Health ) 5 MG 11:11: hours. immediate 35 release tablet omeprazole 2021-0 Yes 1{tbl} QD Take 1 UT (PriLOSEC) 8-18 tablet by Heal th [address] 11:11: mouth 1 capsule 35 (one) time each day. venlafaxine 2021-0 Yes 1 (one) UT (Effexor) 8-18 time each Healt h 75 MG 11:11: day at the tablet 35 same time. magnesium 2022-0 Yes Q6H every 6 UT hydroxide 8-18 (six) Health (Milk of 11:11: hours. Magnesia) 35 400 MG/5ML suspension phenol 2021-0 Yes 1 spray UT (Chlorasept 8-18 spit out [facility] ic) 1.4 % 11:11: after 15 liquid 35 seconds as needed oxyCODONE 2022-0 Yes Q6H every 6 UT (Roxicodone 8-18 (six) Health ) 5 MG 11:11: hours. immediate 35 release tablet omeprazole 2021-0 Yes 1{tbl} QD Take 1 UT (PriLOSEC) 8-18 tablet by Heal th [address] 11:11: mouth 1 capsule 35 (one) time each day. venlafaxine 2022-0 Yes 1 (one) UT (Effexor) 8-18 time each Healt h 75 MG 11:11: day at the tablet 35 same time. magnesium 2021-0 Yes Q6H every 6 UT hydroxide 01-13 (six) [facility] (Milk of 11:11: hours. Magnesia) 35 400 MG/5ML suspension phenol Yes 1 spray UT (Chlorasept 01-13 spit out [facility] ic) 1.4 % 11:11: after 15 liquid 35 seconds as needed oxyCODONE 0 Yes Q6H every 6 UT (Roxicodone 01-13 (six) [facility] ) 5 MG 11:11: hours. immediate 35 release tablet omeprazole Yes 1{tbl} QD Take 1 UT (PriLOSEC) 01-13 tablet by [facility] [address] 11:11: mouth 1 capsule 35 (one) time each day. venlafaxine Yes 1 (one) UT (Effexor) 01-13 time each Healt h 75 MG 11:11: day at the tablet 35 same time. Calcium Yes 1{tbl} 1 tablet. UT Carbonate 01-13 [facility] 500 MG 11:11: chewable 34 tablet gabapentin Yes 1{capsu 1 capsule. UT (Neurontin) 01-13 le} [facility] 300 MG 11:11: capsule 34 ferrous Yes 1{tbl} 1 tablet. UT sulfate 325 01-13 [facility] (65 Fe) MG 11:11: tablet 34 guaiFENesin Yes See UT (Carla-Tussi 01-13 administra He alth n) 100 11:11: tion MG/5ML 34 instructio liquid ns. latanoprost Yes 1[drp] QD 1 drop 1 UT (Xalatan) 01-13 (one) time [facility] 0.005 % 11:11: each day. ophthalmic 34 solution levoFLOXaci Yes 500mg QD Take 500 U T n 01-13 mg by [facility] (Levaquin) 11:11: mouth 1 500 MG 34 (one) time tablet each day. levothyroxi Yes 1 (one) UT ne - time each Health (Synthroid, 11:11: day at [...] (65 Fe) MG 11:11: tablet 34 guaiFENesin Yes See UT (Carla-Tussi 01-13 administra He alth n) 100 11:11: tion MG/5ML 34 instructio liquid ns. latanoprost 0 Yes 1[drp] QD 1 drop 1 UT (Xalatan) 18 (one) time Heal th 0.005 % 11:11: each day. ophthalmic 34 solution levoFLOXaci 0 Yes 500mg QD Take 500 U T n 8-18 mg by Health (Levaquin) 11:11: mouth 1 500 MG 34 (one) time tablet each day. levothyroxi 0 Yes 1 (one) UT ne -18 time each Health (Synthroid, 11:11: day at the Levoxyl) 75 34 same time. MCG tablet Calcium Yes 1{tbl} 1 tablet. UT Carbonate 01-13 Health 500 MG 11:11: chewable 34 tablet gabapentin 0 Yes 1{capsu 1 capsule. UT (Neurontin) 01-13 le} Health 300 MG 11:11: capsule 34 ferrous 2021-0 Yes 1{tbl} 1 tablet. UT sulfate 325 18 Health (65 Fe) MG 11:11: tablet 34 guaiFENesin 0 Yes See UT (Carla-Tussi 01-13 administra He alth n) 100 11:11: tion MG/5ML 34 instructio liquid ns. latanoprost 2021-0 Yes 1[drp] QD 1 drop 1 UT (Xalatan) -18 (one) time Heal th 0.005 % 11:11: each day. ophthalmic 34 solution levoFLOXaci 2021-0 Yes 500mg QD Take 500 U T n 8-18 mg by Health (Levaquin) 11:11: mouth 1 500 MG 34 (one) time tablet each day. levothyroxi 2021-0 Yes 1 (one) UT ne 8-18 time each Health (Synthroid, 11:11: day at the Levoxyl) 75 34 same time. MCG tablet acetaminoph 2021-0 Yes 500mg Take 500 U T en 8-18 mg by Health (Tylenol) 11:11: mouth 1 500 MG 33 (one) time tablet each day if needed. acetaminoph 202-0 Yes 500mg Take 500 U T en 8-18 mg by Health (Tylenol) 11:11: mouth 1 500 MG 33 (one) time tablet each day if needed. acetaminoph 2021-0 Yes 500mg Take 500 U T en 8-18 mg by Health (Tylenol) 11:11: mouth 1 500 MG 33 (one) time tablet each day if needed. gabapentin 2021-0 2022- No [id number] 300mg Take 1 UT (Neurontin) 01-13 capsule Heal th 300 MG 00:00: 04:59 (300 mg capsule 00 :00 total) by mouth every night. gabapentin 2021-2022- No [id number] 300mg Take 1 UT (Neurontin) 01-13 capsule Heal th 300 MG 00:00: 04:59 (300 mg capsule 00 :00 total) by mouth every night. gabapentin 2021-0 2022- No [id number] 300mg Take 1 UT (Neurontin) 01-13 capsule Heal th 300 MG 00:00: 04:59 (300 mg capsule 00 :00 total) by mouth every night. gabapentin 2021-0 Yes [id number] 300mg Take 1 UT (Neurontin) 12-29 capsule Healt h 300 MG 00:00: (300 mg capsule 00 total) by mouth every night. gabapentin 2021-0 2- No [id number] 300mg Take 1 UT (Neurontin) 12-29 capsule Heal th 300 MG 00:00: 04:59 (300 mg capsule 00 :00 total) by mouth every night. gabapentin 2021-0 2- No [id number] 300mg Take 1 UT (Neurontin) 12-29 capsule Heal th 300 MG 00:00: 04:59 (300 mg capsule 00 :00 total) by mouth every night. Xarelto 2.5 2021-0 Yes 2.5mg Q.5D Take 2.5 U T MG tablet 7-22 mg by Health 00:00: mouth 2 00 (two) times a day. Xarelto 2.5 2022-0 Yes 2.5mg Q.5D Take 2.5 U T MG tablet 7-22 mg by Health 00:00: mouth 2 00 (two) times a day. Xarelto 2.5 2022-0 Yes 2.5mg Q.5D Take 2.5 U T MG tablet 7-22 mg by Health 00:00: mouth 2 00 (two) times a day. famotidine 2022-0 Yes 20mg QD Take 20 mg U T (Pepcid) 20 6-28 by mouth 1 He alth MG tablet 00:00: (one) time 00 each day. famotidine 2022-0 Yes 20mg QD Take 20 mg U T (Pepcid) 20 6-28 by mouth 1 He alth MG tablet 00:00: (one) time 00 each day. famotidine 2022-0 Yes 20mg QD Take 20 mg U T (Pepcid) 20 6-28 by mouth 1 He alth MG tablet 00:00: (one) time 00 each day. losartan-hy 2022-0 Yes 1{tbl} QD Take 1 UT droCHLOROth 6-22 tablet by [facility] iazide 00:00: mouth 1 (Hyzaar) 00 (one) time 50-12.5 MG each day. tablet losartan-hy 2022-0 Yes 1{tbl} QD Take 1 UT droCHLOROth 6-22 tablet by [facility] iazide 00:00: mouth 1 (Hyzaar) 00 (one) time 50-12.5 MG each day. tablet losartan-hy 2022-0 Yes 1{tbl} QD Take 1 UT droCHLOROth 6-22 tablet by [facility] iazide 00:00: mouth 1 (Hyzaar) 00 (one) time 50-12.5 MG each day. tablet allopurinol 2022-0 Yes 100mg QD Take 100 U T (Zyloprim) 6-19 mg by Health 100 MG 00:00: mouth 1 tablet 00 (one) time each day. allopurinol 2022-0 Yes 100mg QD Take 100 U T (Zyloprim) 6-19 mg by Health 100 MG 00:00: mouth 1 tablet 00 (one) time each day. allopurinol 0 Yes 100mg QD Take 100 U T (Zyloprim) 6-19 mg by Health 100 MG 00:00: mouth 1 tablet 00 (one) time each day. ergocalcife 2021-0 Yes TAKE BY UT rol 6-18 MOUTH 1 Health (Vitamin 00:00: TABLET D2) 1.25 MG 00 EVERY WEEK (55237 UT) FOR 12 capsule WEEKS ergocalcife 2021-0 Yes TAKE BY UT rol 6-18 MOUTH 1 Health (Vitamin 00:00: TABLET D2) 1.25 MG 00 EVERY WEEK (77284 UT) FOR 12 capsule WEEKS ergocalcife 2021-0 Yes TAKE BY [facility] rol 6-18 MOUTH 1 Health (Vitamin 00:00: TABLET D2) 1.25 MG 00 EVERY WEEK (49156 UT) FOR 12 capsule WEEKS gabapentin 2021-0 2022- No [id number] 300mg Take 1 UT (Neurontin) 08-18- capsule Heal th 300 MG 00:00: 04:59 (300 mg capsule 00 :00 total) by mouth every night. gabapentin 2021-0 2022- No [id number] 300mg Take 1 UT (Neurontin) 08-18- capsule Heal th 300 MG 00:00: 04:59 (300 mg capsule 00 :00 total) by mouth every night. gabapentin 2021-0 2022- No [id number] 300mg Take 1 UT (Neurontin) 08-18- capsule Heal th 300 MG 00:00: 04:59 (300 mg capsule 00 :00 total) by mouth every night. Lumigan 0 Yes 1[drp] Administer UT 0.01 % 3-21 1 drop Health ophthalmic 00:00: into both solution 00 eyes every night. Lumigan 2021-0 Yes 1[drp] Administer UT 0.01 % 3-21 1 drop Health ophthalmic 00:00: into both solution 00 eyes every night. Lumigan 2021-0 Yes 1[drp] Administer UT 0.01 % 3-21 1 drop Health ophthalmic 00:00: into both solution 00 eyes every night. lidocaine Yes APPLY 1 UT (Lidoderm) 2-15 PATCH ONCE Hea lth 5 % patch 00:00: DAILY 00 NEEDED. 12 HOURS ON AND 12 HOURS OFF IN A 24 HOURS lidocaine 2021-0 Yes APPLY 1 UT (Lidoderm) 2-15 PATCH ONCE Hea lth 5 % patch 00:00: DAILY 00 NEEDED. 12 HOURS ON AND 12 HOURS OFF IN A 24 HOURS lidocaine 2021-0 Yes APPLY 1 UT (Lidoderm) 2-15 PATCH ONCE Hea lth 5 % patch 00:00: DAILY 00 NEEDED. 12 HOURS ON AND 12 HOURS OFF IN A 24 HOURS chlorhexidi 2021-0 Yes RINSE UT ne 1-20 MOUTH WITH Health (Peridex) 00:00: 15ML 0.12 % 00 INDICATED solution AT BEDTIME. SPIT, DO NOT SWALLOW chlorhexidi 2021-0 Yes RINSE UT ne 1-20 MOUTH WITH Health (Peridex) 00:00: 15ML 0.12 % 00 INDICATED solution AT BEDTIME. SPIT, DO NOT SWALLOW chlorhexidi 2021-0 Yes RINSE UT ne 1-20 MOUTH WITH Health (Peridex) 00:00: 15ML 0.12 % 00 INDICATED solution AT BEDTIME. SPIT, DO NOT SWALLOW timolol 0 Yes INSTILL 1 [facility] di (TIMOPTIC) 8-[address] 0.5 % 00:00: BOTH EYES Hospita ophthalmic 00 2 TIMES A l solution DAY timolol 0 Yes INSTILL 1 [facility] di (TIMOPTIC) 8-[address] 0.5 % 00:00: BOTH EYES Hospita ophthalmic 00 2 TIMES A l solution DAY bimatoprost 2018-0 Yes 1[drp] QD Administer [facility] (LUMIGAN) 5-[address] 0.01 % 10:05: both eyes Hospit a ophthalmic 45 nightly. l drops bimatoprost 2019-0 Yes 1[drp] QD Administer [facility] (LUMIGAN) 5-[address] 0.01 % 10:05: both eyes Hospit a ophthalmic 45 nightly. l drops venlafaxine 2019-0 Yes 75mg QD Take 75 mg [facility] XR 4-[address] (EFFEXOR-XR 00:00: daily. Hosp seb ) 75 MG 24 00 l hr capsule venlafaxine 2018-0 Yes 75mg QD Take 75 mg [facility] XR 4-[address] (EFFEXOR-XR 00:00: daily. Hosp seb ) 75 MG 24 00 l hr capsule triamcinolo 2019-0 Yes APPLY TO Me thodi ne 4-[address] (KENALOG) 00:00: AREA TWICE Ho spita 0.5 % cream 00 A DAY l triamcinolo 2018-0 Yes APPLY TO Me thodi ne 4-[address] (KENALOG) 00:00: AREA TWICE Ho spita 0.5 % cream 00 A DAY l BONIVA 150 2018-0 Yes TAKE BY Meth marie mg tablet 3-[address] 00:00: TABLET Hospita 00 EVERY l MONTH BONIVA 150 2018-0 Yes TAKE BY Meth marie mg tablet 3-[address] 00:00: TABLET Hospita 00 EVERY l MONTH BYSTOLIC 10 Yes 10mg QD Take 10 mg [facility] mg tablet 3-[address] 00:00: daily. Hospita 00 l omeprazole 2018-0 Yes QD Take by Meth marie (PriLOSEC) 3-[address] 40 MG 00:00: daily. Hospita capsule 00 l BYSTOLIC 10 Yes 10mg QD Take 10 mg [facility] mg tablet 3-[address] 00:00: daily. Hospita 00 l omeprazole 2018-0 Yes QD Take by Meth marie (PriLOSEC) 3-[address] 40 MG 00:00: daily. Hospita capsule 00 l levothyroxi Yes 75ug QD Take 75 Met hodi ne 3-[address] (SYNTHROID, 00:00: mouth Hospi ta LEVOXYL) 75 00 daily. l mcg tablet levothyroxi 2018- Yes 75ug QD Take 75 Met hodi ne 3-[address] (SYNTHROID, 00:00: mouth Hospi ta LEVOXYL) 75 00 daily. l mcg tablet Immunizations Ordered Immunization Filled Immunization Date Status Commen ts Source Name Name [facility]ARE COVID-19 MRNA 2021-03-22 Completed Meth odist VACCINATION 00:00:00 [facility] PFIZER COVID-19 MRNA 2021-03-22 Completed Meth odist VACCINATION 00:00:00 [facility] PFIZER COVID-19 MRNA 2020-08-31 Completed Meth odist VACCINATION 00:00:00 [facility] PFIZER COVID-19 MRNA 2020-08-31 Completed Meth odist VACCINATION 00:00:00 [facility] PFIZER COVID-19 MRNA 2020-08-10 Completed Meth odist VACCINATION 00:00:00 Hospital PFIZER COVID-19 MRNA 2020-08-10 Completed [facility] od[facility] VACCINATION 00:00:00 Hospital Influenza, 2020-03-10 Completed [facility] injectable, 00:00:00 quadrivalent (afluria, fluzone) Influenza, 2020-03-10 Completed [facility] injectable, 00:00:00 quadrivalent (afluria, fluzone) Influenza, 2020-03-10 Completed [facility] injectable, 00:00:00 quadrivalent (afluria, fluzone) Vital Signs Vital Name Observation Time Observation Value Comments Source Systolic blood pressure 2022-03-25 15:06:00 138 mm[Hg] [facility] Diastolic blood pressure 2022-03-25 15:06:00 72 mm[Hg] [facility] Heart rate 2022-03-25 15:06:00 72 /min [facility] Oxygen saturation in 2022-03-25 15:06:00 99 /min [facility] Arterial blood by Pulse oximetry Procedures Procedure Date / Time Performed Performing Clinician Sourc e [place] LUMBAR TRANSFORAMINAL ANTWAN; 2022-03-25 15:20:00 Pricilla Miramontes [facility] 1ST LEVEL [place] LUMBAR TRANSFORAMINAL ANTWAN; 2022-03-25 15:20:00 Pricilla Miramontes [facility] EACH ADDL Plan of Care Planned Activity Planned Date Details Comments Source Future Scheduled 2022-05-12 65+ PNEUMOCOCCAL [facility] Test 04:02:51 VACCINE (1 - PCV) [code = 65+ PNEUMOCOCCAL VACCINE (1 - PCV)] Future Scheduled 2022-05-12 SHINGLES VACCINES ([address] [facility] Test 04:02:51 of 2) [code = SHINGLES VACCINES (1 of 2)] Future Scheduled 2022-05-12 COVID-19 VACCINE (4 - [facility] Test 04:02:51 Booster for Pfizer series) [code = COVID-19 VACCINE (4 - Booster for Pfizer series)] Future Scheduled 2022-05-12 INFLUENZA VACCINE Method [facility] Test 04:02:51 [code = INFLUENZA VACCINE] Future Scheduled 2022-02-17 HEPATITIS B VACCINES Met [facility] Test 07:45:52 (1 of 3 - 3-dose series) [code = HEPATITIS B VACCINES (1 of 3 - 3-dose series)] Future Scheduled 2022-02-17 65+ PNEUMOCOCCAL [facility] Test 07:45:52 VACCINE (1 - PCV) [code = 65+ PNEUMOCOCCAL VACCINE (1 - PCV)] Future Scheduled 2022-02-17 SHINGLES VACCINES ([address] [facility] Test 07:45:52 of 2) [code = SHINGLES VACCINES (1 of 2)] Future Scheduled 2022-02-17 COVID-19 VACCINE (4 - Me [facility] Test 07:45:52 Booster for Pfizer series) [code = COVID-19 VACCINE (4 - Booster for Pfizer series)] Future Scheduled 2022-02-17 INFLUENZA VACCINE Method [facility] Test 07:45:52 [code = INFLUENZA VACCINE] Encounters Start End Encounter Admission Attending Care Care Encounter Source Date/Time Date/Time Type Type Clinicians Facility Department ID 2022-04-29 Outpatient [facility] [id number] [place] 15:41:[address] [place] [address] 2022-03-25 Outpatient [facility] [id number] [place] 09:11:37 [id number] [facility] 2021-07-08 Outpatient MAURICIO, [facility] [id number] [place] 11:49:57 [facility] 2021-07-02 Outpatient [facility] [id number] [place] 13:37:21 [facility] 2021-06-11 Outpatient [facility] [id number] [place] 09:01:29 [facility] 2021-03-18 Outpatient MAURICIO, [facility] [id number] [place] 11:23:25 [facility] 2021-03-12 Outpatient [facility] [id number] [place] 13:38:52 [facility] 2021-01-23 Outpatient MARUICIO, [facility] [id number] [place] 01:03:46 [facility] 2021-01-22 Outpatient [facility] [id number] [place] 13:52:59 [facility] 2021-01-21 Outpatient MAURICIO, [facility] [id number] UT 11:57:04 [facility] 2021-01-15 Outpatient [facility] [id number] UT 10:31:42 [facility] 2022-07-28 2022-07-28 Outpatient MAURICIO, [facility] [id number] [place] 10:00:00 10:00:00 [facility] 2022-05-13 2022-05-13 Outpatient AMSELIGIO, [facility] [id number] [place] 09:00:00 09:00:00 [facility] 2022-05-13 2022-05-13 Outpatient [facility] [id number] UT 08:20:00 08:20:00 Health 2022-04-26 2022-04-26 Outpatient TITO, [facility] [id number] [place] 10:40:00 10:40:00 [facility] 2022-04-07 2022-04-07 Outpatient TITO, [facility] [id number] [place] 08:40:00 08:40:00 [facility] 2022-03-25 2022-03-25 Procedure TITO [facility] 6400 [id number] [place] 10:20:00 10:20:[address] [id number] Health [id number] 2022-03-11 2022-03-11 Outpatient TITO, [facility] [id number] [place] 11:20:00 11:20:00 [facility] 2022-01-20 2022-01-20 Office Mauricio, [facility] 6414 [id number] [place] 09:45:00 10:39:[address] [id number] Health [id number] 2022-01-20 2022-01-20 Outpatient [facility] [id number] [place] 09:45:00 09:45:00 Health 2022-01-13 2022-01-13 Telephonic TITO, [facility] 6400 [id number] [place] 10:40:00 10:40:[address] [id number] Health [id number] 2021-07-08 2021-07-08 Office Martínez, [facility] 6414 [id number] [place] 10:45:00 11:50:[address] [id number] Health [id number] 2021-03-22 2021-03-22 Clinical 1.2.840.1 [id number] [facility] 11:35:00 12:30:[id number] 3.430.2.7 Hospit a .3.681218 l .8 2021-03-22 2021-03-22 Travel 1.2.840.1 [id number] [facility] 00:00:00 00:00:[id number] 3.430.2.7 0.2.7.3.698 Ho spita .3.784547 084.8 l .8 2021-03-18 2021-03-18 Office YURY Juares [id number] [place] 10:30:51 11:24:12 Visit Penelope TRAUMA [id number] Health CLINIC [id number] 2021-03-16 2021-03-16 Travel 1.2.840.1 [id number] [facility] 00:00:00 00:00:[id number] 3.430.2.7 0.2.7.3.698 Ho spita .3.891756 084.8 l .8 2021-01-21 2021-01-21 Office YURY Juares [id number] [place] 10:58:49 12:04:49 Visit Penelope TRAUMA [id number] Health CLINIC [id number] 2020-12-22 2020-12-29 Inpatient Rowdy CASTILLO [facility] [id number] [facility] 12:24:00 20:00:00 [facility] 2020-08-31 2020-08-31 Outpatient [facility] [id number] [place] 00:00:00 00:00:00 BEREKET [address] 2020-08-10 2020-08-10 Outpatient [facility] [id number] [place] 00:00:00 00:00:[address] 2020-03-25 2020-03-25 Outpatient Jennifer FLOR [facility] [id number] [place] 00:00:00 00:00:[address] Results This patient has no known results.
--- NOTE | 2022-06-22 10:08 | RAD REPORT ---
EXAM DESCRIPTION: CT - Head Brain Wo Cont - 06/22/2022 9:58 am CLINICAL HISTORY: Headache COMPARISON: June 2021 TECHNIQUE: Computed axial tomography of the head was obtained. IV contrast was not requested. All CT scans are performed using dose optimization technique as appropriate and may include automated exposure control or mA/KV adjustment according to patient size. FINDINGS: An intracranial bleed is not seen . The ventricles are normal in caliber. No extra-axial fluid collection is noted. Mild to moderate low-density areas within periventricular, deep and subcortical white matter likely r epresent ischemic changes secondary to small vessel disease. Fluid within the sinuses/ mastoids is not seen. IMPRESSION: No acute intracranial abnormality is seen. If patient's symptoms persist MRI of the bra in would be recommended.
[2022-06-22 10:51] LABS: Hematocrit 35.2 % (36.0-45.0); Lymphocytes % 20.4 % (15.3-44.8); MCV 99.8 fL (80-100); MPV 8.8 fL (7.6-11.3); RBC Red Blood Cell Count 3.53 M/uL (3.86-4.86)
[2022-06-22 10:55] LABS: Protime INR 1.63
[2022-06-22] MEDS ORDERED: METOCLOPRAMIDE 10 MG/2mL INJ ONE (11:00)
[2022-06-22] MEDS ORDERED: ACETAMINOPHEN 325 MG TABLET ONE (11:00)
[2022-06-22] MEDS ORDERED: NA CHLORIDE 0.9% 500 ML ONE (11:00)
[2022-06-22 11:04] LABS: Albumin 3.4 g/dL (3.4-5.0); Bilirubin Total 0.5 mg/dL (0.2-1.0); Potassium 4.6 mmol/L (3.5-5.1); Protein, Total 7.6 g/dL (6.4-8.2)
--- NOTE | 2022-06-22 13:59 | RAD REPORT ---
EXAM DESCRIPTION: MRI - Brain Wo Cont - 06/22/2022 1:42 pm CLINICAL HISTORY: headache, different character COMPARISON: Head Brain Wo Cont dated 06/22/2022 TECHNIQUE: Multi-sequence, multiplanar MR imaging of the brain was performed without contrast. FINDINGS: No intracranial hemorrhage, hydrocephalus or extra-axial fluid collections.Moderate conflu ent T2/FLAIR hyperintensity in the periventricular and deep white matter is present compatible with c hronic microvascular ischemic changes. No midline shift. DWI is negative for acute CVA. Midline structures are normally formed. Mastoid air cells and paranasal sinuses are clear. IMPRESSION: No concerning abnormality is seen. Postcontrast sequences could be obtained if headache persists.
--- NOTE | 2022-06-22 14:12 | ER ---
Nurse's Notes [facility] Name: Ambar Jay Age: 81 yrs Sex: Female : 1940 Arrival Date: 06/22/2022 Time: 09:11 Bed 11 Private MD: Samm Mesa Diagnosis: headache;acute otalgia Presentation: 06/22 09:36 Chief complaint: Patient states: i have a headache for past 3 days , she can't turn her iw head to the left , the back of my head is hurting, denies weakness. Coronavirus screen: At this time, the client does not indicate any symptoms associated with coronavirus-19. Ebola Screen: Patient negative for fever greater than or equal to 101.5 degrees Fahrenheit, and additional compatible Ebola Virus Disease symptoms Patient denies exposure to infectious person. Patient denies travel to an Ebola-affected area in the 21 days before illness onset. No symptoms or risks identified at this time. Initial Sepsis Screen: Does the patient meet any 2 criteria? No. Patient's initial sepsis screen is negative. Does the patient have a suspected source of infection? No. Patient's initial sepsis screen is negative. Risk Assessment: Do you want to hurt yourself or someone else? Patient reports no desire to harm self or others. Onset of symptoms was June 19, 2022. 09:36 Method Of Arrival: Wheelchair iw 09:36 Acuity: ANTWAN 3 iw Triage Assessment: 09:45 General: Appears in no apparent distress. Behavior is calm, cooperative. Pain: iw Complains of pain in right base of the skull and right occipital area and left base of the skull and left occipital area. EENT: Reports pain in left ear and right ear. Historical: - Allergies: 09:36 Darvon; iw - PMHx: 09:36 colon cancer; Depression; GERD; Hypothyroidism; Hypertension; Glaucoma; iw - PSHx: 09:36 R hip SX; iw Screenin:40 [facility] ED Fall Risk Assessment (Adult) History of falling in the last 3 months, iw including since admission. Abuse screen: Denies threats or abuse. Denies injuries from another. Nutritional screening: No deficits noted. Tuberculosis screening: No symptoms or risk factors identified. Vital Signs: 09:36 BP 143 / 59; Pulse 61; Resp 16; Temp 97.5; Pulse Ox 100% ; iw ED Course: 09:11 Patient arrived in ED. mr 09:11 Samm Mesa MD is Private Physician. mr 09:16 [facility] m 09:16 Jordi Aviles MD is Attending Physician. jmm 09:37 Triage completed. iw 09:37 Arm band placed on. iw 09:58 Head Brain Wo Cont In Process Unspecified. EDMS 10:42 Bailey York, RN is Primary Nurse. iw 10:42 Inserted saline lock: 22 gauge in left antecubital area, using aseptic technique. iw 13:44 MRI - Brain Wo Cont In Process Unspecified. EDMS Administered Medications: 11:00 Drug: Reglan (metoCLOPramide) 10 mg Route: IVP; Site: left antecubital; ld1 12:00 Follow up: Response: No adverse reaction iw 11:00 Drug: NS 0.9% 500 ml Route: IV; Rate: bolus; Site: left antecubital; ld1 11:50 Follow up: IV Status: Completed infusion iw 11:00 Drug: Acetaminophen 650 mg Route: PO; ld1 12:00 Follow up: Response: No adverse reaction iw Medication: 14:55 VIS not applicable for this client. iw Outcome: 14:12 Discharge ordered by MD. [facility] 14:55 Discharged to home via wheelchair, with family. iw 14:55 Condition: good 14:55 Discharge instructions given to patient, family, Instructed on discharge instructions, follow up and referral plans. Demonstrated understanding of instructions, follow-up care, medications, Prescriptions given X 1. 14:56 Patient left the ED. iw Signatures: Dispatcher [employer] EDMS Sagar Ritchie PA PA jmm FontanaKerrie Bailey York, RN RN iw Georgiana Burks RN RN ld1 Corrections: (The following items were deleted from the chart) 06/23 07:51 06/22 14:55 Discharge instructions given to patient, family, Instructed on discharge iw instructions, follow up and referral plans. Demonstrated understanding of instructions, follow-up care, medications, iw
--- NOTE | 2022-06-22 14:12 | EDPHYS ---
Physician Documentation [facility] Name: Ambar Jay Age: 81 yrs Sex: Female : 1940 Arrival Date: 06/22/2022 Time: 09:11 Bed 11 Private MD: Samm Mesa ED Physician Jordi Aviles HPI: 06/22 09:38 This 81 yrs old Female presents to ER via Wheelchair with complaints of Ear jmm Pain, Headache. 09:38 The patient complains of pain to the left occipital area, left base of the skull, right jmm occipital area and right base of the skull. Onset: The symptoms/episode began/occurred gradually, 3 day(s) ago. Associated signs and symptoms: Pertinent negatives: fever. The patient has not experienced similar symptoms in the past. This is an 81 year old female with a history of hypothyroidism, htn that presents to the ED with complaints of left occipital region headache beginning gradually approx 3 days ago. Also complains of bilateral ear pain. Denies vomiting, photosensitivity. . Historical: - Allergies: 09:36 Darvon; iw - PMHx: 09:36 colon cancer; Depression; GERD; Hypothyroidism; Hypertension; Glaucoma; iw - PSHx: 09:36 R hip SX; iw ROS: 09:38 Constitutional: Negative for fever, chills, and weight loss, Cardiovascular: Negative jmm for chest pain, palpitations, and edema, Respiratory: Negative for shortness of breath, cough, wheezing, and pleuritic chest pain. 09:38 Neuro: Positive for headache. 09:38 All other systems are negative. Exam: 09:38 Constitutional: This is a well developed, well nourished patient who is awake, alert, jmm and in no acute distress. Head/Face: atraumatic. Eyes: EOMI, no conjunctival erythema appreciated ENT: Moist Mucus Membranes Neck: Trachea midline, Supple Chest/axilla: Normal chest wall appearance and motion. Cardiovascular: Regular rate and rhythm. No edema appreciated Respiratory: Normal respirations, no respiratory distress appreciated Abdomen/GI: Non distended Back: Normal ROM Skin: General appearance color normal MS/ Extremity: Moves all extremities, no obvious deformities appreciated, no edema noted to the lower extremities Neuro: Awake and alert Psych: Behavior is normal, Mood is normal, Patient is cooperative and pleasant 09:38 ENT: TM's: erythema, that is mild, on the left. 09:38 Neuro: Orientation: is normal, Mentation: is normal, Memory: is normal, Motor: is normal. 09:38 Psych: Behavior/mood is pleasant, cooperative. Vital Signs: 09:36 BP 143 / 59; Pulse 61; Resp 16; Temp 97.5; Pulse Ox 100% ; iw MDM: 09:38 Patient medically screened. [facility] 14:10 Data reviewed: vital signs, nurses notes, lab test result(s), radiologic studies, CT [facility] scan, MRI. 14:10 I considered the following discharge prescriptions or medication management in the [facility] emergency department Medications were administered in the Emergency Department. See MAR. Historians other than the Patient: family. Counseling: I had a detailed discussion with the patient and/or guardian regarding: the historical points, exam findings, and any diagnostic results supporting the discharge/admit diagnosis, lab results, radiology results, the need for outpatient follow up, to return to the emergency department if symptoms worsen or persist or if there are any questions or concerns that arise at home. ED course: CT and MRI negative. Patient does have decreased pain. Has f/u with ENT tomorrow for reevaluation. Patient is otherwise given strict return precautions. Patient understood and agrees with the plan of care. . 06/22 09:39 Order name: CBC with Diff; Complete Time: 11:11 [facility] 06/22 09:39 Order name: CMP; Complete Time: 11:11 [facility] 06/22 09:39 Order name: CT Head Brain wo Cont [facility] 06/22 09:39 Order name: PT-INR; Complete Time: 11:11 [facility] 06/22 09:43 Order name: Head Brain Wo Cont; Complete Time: 10:24 [facility] 06/22 10:24 Order name: MRI - Brain Wo Cont; Complete Time: 14:02 [facility] 06/22 09:39 Order name: Saline Lock; Complete Time: 10:42 [facility] Administered Medications: 11:00 Drug: Reglan (metoCLOPramide) 10 mg Route: IVP; Site: left antecubital; ld1 12:00 Follow up: Response: No adverse reaction iw 11:00 Drug: NS 0.9% 500 ml Route: IV; Rate: bolus; Site: left antecubital; ld1 11:50 Follow up: IV Status: Completed infusion iw 11:00 Drug: Acetaminophen 650 mg Route: PO; ld1 12:00 Follow up: Response: No adverse reaction iw Disposition: 15:10 Co-signature as Attending Physician, Jordi Aviles MD I reviewed the patient's care rt provided by the Advanced Practice Provider and agree with the diagnosis and treatment plan. Disposition Summary: 06/22/22 14:12 Discharge Ordered Location: Home [facility] Condition: Stable [facility] Diagnosis - headache [facility] - acute otalgia [facility] Followup: jmm - With: Private Physician - When: 1 - 2 days - Reason: Recheck today's complaints, Continuance of care, Re-evaluation by your physician Discharge Instructions: - Discharge Summary Sheet [facility] - General Headache Without Cause [facility] Forms: - Medication Reconciliation Form [facility] - Thank You Letter [facility] - Antibiotic Education [facility] - Prescription Opioid Use [facility] Prescriptions: - orphenadrine citrate 100 mg Oral Tablet Sustained Release - take 1 tablet by ORAL route 2 times per day As needed; 20 tablet; Refills: 0, [facility] Product Selection Permitted Signatures: Dispatcher [employer] EDSagar Jon PA PA jmm Bailey York RN RN iw Georgiana Burks RN RN ld1 Jordi Aviles MD MD rt
[2022-06-22 15:22] VITALS: BP 143/59; TEMP 97.5; O2SAT 100
== END 2022-06-22 14:56 | disposition home or self-care (01) ==
LOC: ER 09:00
DX: R51.9 Headache, unspecified (principal); H92.03 Otalgia, bilateral; I10 Essential (primary) hypertension; Z88.5 Allergy status to narcotic agent
CPT/HCPCS: 85025; 36415; 85610; 80053; 70450; 70551; J2765; J7040

== ENCOUNTER 2022-06-24 12:43 | Day surgery (SDC) | payer OTHER ==
[2022-06-24] MEDS ORDERED: Ringers Lactate 1,000 ML IV ONE (13:37)
[2022-06-24] MEDS ORDERED: propofoL 200 MG/20 ML VIAL IV ONE ×2 (13:39→13:43)
[2022-06-24] MEDS ORDERED: FENTANYL CITR 100 MCG/2 ML ONE (13:40)
[2022-06-24] MEDS ORDERED: LIDOCAINE 1% MPF 2 ML AMPULE ONE (13:43)
[2022-06-24] MEDS ORDERED: LIDOCAINE 1% MPF 30 ML VIAL ONE (13:49)
[2022-06-24 14:11] LABS: Albumin 3.4 g/dL (3.4-5.0); Bilirubin Total 0.3 mg/dL (0.2-1.0); Potassium 4.8 mmol/L (3.5-5.1)
[2022-06-24 14:17] VITALS: O2SAT 100
[2022-06-24] MEDS ORDERED: KETOROLAC 30 MG/ML INJ ONE (15:00)
--- NOTE | 2022-06-24 15:03 | P.OP ---
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 The strong signal was approximately 2 mm behind the hairline. Approximately 5 mm of the anterior temporal scalp was trimmed. The area was injected with 4 mL of 1% plain lidocaine and prepped with Betadine and draped in a sterile fashion. 15 blade scalpel was used to make a 2 cm incision in the skin and the skin subcutaneous tissue was carefully dissected. The skin edges were treated with needlepoint Bovie electrocautery to aid in hemostasis. The superficial temporal fascia was identified and carefully divided. Careful investigation in this plane did not reveal any obvious temporal artery. The incision was lengthened by about a half a centimeter both superiorly and inferiorly. Additional investigation, gentle dissection through the fascial layers and repeat Doppler application was performed. The temporal artery was then identified in the anterior aspect of the surgical wound. The proximal and distal ends were ligated with 4-0 Vicryl suture and approximately 1 cm fragment of the temporal artery was removed and sent to pathology for permanent section. The area was carefully inspected and there was no evidence of bleeding. The incision was closed in a layered fashion using 4-0 Vicryl deep sutures and 5-0 plain gut suture for the skin. Dermabond was applied to the incision. The area was cleaned and dried and patient was returned to care of anesthesia for transportation to recovery. Complications: None Implants: none Fluids & blood products: Crystalloid, see anesthesia record for volume Transferred to: Recovery Room Condition: Good
[2022-06-24 15:38] VITALS: BP 112/46; TEMP 97.3
== END 2022-06-24 15:55 | disposition home or self-care (01) ==
LOC: OR 12:43
PROVIDERS: ATTEND Otolaryngology
PROC: 03BT0ZX Excision of Left Temporal Artery, Open Approach, Diagnostic (ICD-10-PCS; principal; 2022-06-24 14:00)
DX: I70.8 Atherosclerosis of other arteries (principal); E83.59 Other disorders of calcium metabolism; R51.9 Headache, unspecified; H92.02 Otalgia, left ear; R79.82 Elevated C-reactive protein (CRP)
CPT/HCPCS: 36415; 80053; 88305; J2001; J2704; J3010; J7120

== ENCOUNTER 2022-11-10 15:31 | Inpatient (IN) | payer OTHER ==
--- OUTSIDE RECORDS SUMMARY | 2022-11-10 15:36 | XMS REPORT | Continuity of Care Document ---
:1940 Author Organization [facility] t Address [address] [place] [address] Care Team Providers Name Role Phone Samm Mesa MD Primary Care Physician KIAN MARTÍNEZ Attending Clinician Unavailable RONALDO MIRAMONTES Attending Clinician Unavailable Penelope Alves Attending Clinician LORE CASTILLO Attending Clinician Unavailable BEREKET GLASER Attending Clinician Unavailable Jennifer FLOR Attending Clinician Unavailable LORE CASTILLO Admitting Clinician Unavailable Payers Payer Name Policy Type Policy Number Effective Date Expiration Date S ource [employer] MEDICARE [id number] 2020 2021 PPO 00:00:00 00:00:00 Problems Condition [...] M ethodi e and e and 11-10 fluid fluid 00:00: Hospita disorder disorder 00 [...] 07-07 Health substanc 00:00: e 00 Propoxyp Allergy Active Itching [facility] to 11-10 Health substanc 00:00: e 00 Propoxyp Propensi Active Itching [facility] ty to [address] adverse 00:00: Hospita reaction 00 l s to drug Social History Social Habit Start Date Stop Date Quantity Comments Source Gender [facility] History of Social 2022-09-01 2022-09-[address] function 00:00:00 00:00:00 Hospital Exposure to 2022-03-15 2022-03-25 Not sure [facility] SARS-CoV-2 (event) 00:00:00 09:13:00 Tobacco use and 2022-03-25 2022-03-25 Smokeless [facility] exposure 00:00:00 00:00:00 tobacco non-user Tobacco Comment 2022-03-25 2022-03-25 [facility]00 Packs/day: N. Recorded: 021 Alcohol intake 2018-10-15 2018-10-15 Current drinker [facility] dist 00:00:00 00:00:00 of [facility] (finding) Sex Assigned At [birth year] [facility] Smoking Status Start Date Stop Date Source Never smoked tobacco [facility] Medications Ordered Filled Start Stop Current Ordering Indication Dosage Frequency Signature Comments Components Source Medication Medication Date Date Medication? Clinician (SIG) Name Name lidocaine 2021-05- No [id number] 10mL UT PF 03-25 Health (Xylocaine) 15:11: 15:11 1 % 19 :00 injection 10 mL bupivacaine 2021-05- No [id number] 3mL U T PF 03-25 Health (Marcaine) 15:11: 15:11 0.25 % 19 :00 injection 3 mL dexamethaso 2021-05- No [id number] 10mg U T ne (PF) 03-25 Health (Decadron) 15:11: 15:11 injection 19 :00 10 mg iohexol 2021-05- No [id number] 2mL UT (OMNIPaque) 03-25 Health 300 MG/ML 15:11: 15:11 injection 2 19 :00 mL iohexol 2021-05- No [id number] 2mL 2 mL, Once UT (OMNIPaque) 03-25 PRN Health 300 MG/ML 15:11: 15:11 Procedure, injection 2 19 :00 Starting mL on Mon03/25/22 at 1011, For 1 dose dexamethaso 2021-05- No [id number] 10mg 10 mg, UT ne (PF) 03-25 Once PRN Health (Decadron) 15:11: 15:11 Procedure, injection 19 :00 Starting 10 mg on 03/25/22 at 1011, For 1 dose bupivacaine 2021-05- No [id number] 3mL 3 mL, Once UT PF 03-25 PRN Health (Marcaine) 15:11: 15:11 Procedure, 0.25 % 19 :00 Starting injection 3 on Fri mL 03/25/22 at 1011, For 1 dose lidocaine 2021-05- No [id number] 10mL 10 mL, U T PF 03-25 Once PRN Health (Xylocaine) 15:11: 15:11 Procedure, 1 % 19 :00 Starting injection on Fri 10 mL 03/25/22 at 1011, For 1 dose magnesium 2021-0 Yes Q6H every 6 UT hydroxide 8-18 (six) Health (Milk of 11:11: hours. Magnesia) 35 400 MG/5ML suspension phenol 2021-0 Yes 1 spray UT (Chlorasept 8-18 spit out [facility] ic) 1.4 % 11:11: after 15 liquid 35 seconds as needed oxyCODONE 2-0 Yes Q6H every 6 UT (Roxicodone 8-18 ([facility]) Health ) 5 MG 11:11: hours. immediate 35 release tablet omeprazole 2021-0 Yes 1{tbl} QD Take 1 UT (PriLOSEC) 8-18 tablet by [facility] [address] 11:11: mouth 1 capsule [...] 1 spray UT (Chlorasept 8-18 spit out [facility] ic) 1.4 % 11:11: after 15 liquid 35 seconds as needed oxyCODONE 2022-0 Yes Q6H every 6 UT (Roxicodone 8-18 (six) Health ) 5 MG 11:11: hours. immediate 35 release tablet omeprazole 2021-0 Yes 1{tbl} QD Take 1 UT (PriLOSEC) 8-18 tablet by [facility] [address] 11:11: mouth 1 capsule 35 (one) time each day. venlafaxine Yes 1 (one) UT (Effexor) -18 time each Healt h 75 MG 11:11: day at the tablet 35 same time. magnesium 2021-0 Yes Q6H every 6 UT hydroxide 01-13 (six) [facility] (Milk of 11:11: hours. Magnesia) 35 400 MG/5ML suspension phenol Yes 1 spray UT (Chlorasept 01-13 spit out [facility]) 1.4 % 11:11: after 15 liquid 35 seconds as needed oxyCODONE Yes Q6H every 6 UT (Roxicodone 01-13 ([facility]) [facility] ) 5 MG 11:11: hours. immediate 35 release tablet omeprazole Yes 1{tbl} QD Take 1 UT (PriLOSEC) 01-13 tablet by [facility] [address] 11:11: mouth 1 capsule 35 (one) time each day. venlafaxine Yes 1 (one) UT (Effexor) - time each Healt h 75 MG 11:11: day at the tablet 35 same time. Calcium Yes 1{tbl} 1 tablet. UT Carbonate 01-13 [facility] 500 MG 11:11: chewable 34 tablet gabapentin Yes 1{capsu 1 capsule. UT (Neurontin) 01-13 le} Health 300 MG 11:11: capsule 34 ferrous Yes 1{tbl} 1 tablet. UT sulfate 325 01-13 [facility] (65 Fe) MG 11:11: tablet 34 guaiFENesin Yes See UT (Carla-Tussi 01-13 administra He alth n) 100 11:11: tion MG/5ML 34 instructio liquid ns. latanoprost Yes 1[drp] QD 1 drop 1 UT (Xalatan) 01-13 (one) time [facility] 0.005 % 11:11: each day. ophthalmic 34 solution levoFLOXaci Yes 500mg QD Take 500 U T n 01-13 mg by [facility] (Levaquin) 11:11: mouth 1 500 MG 34 (one) time tablet each day. levothyroxi 2021-0 Yes 1 (one) UT ne 8-18 time each Health (Synthroid, 11:11: day at the [facility]) 75 34 same time. MCG tablet Calcium 2021-0 Yes 1{tbl} 1 tablet. UT Carbonate 18 Health 500 MG 11:11: chewable 34 tablet [...] U T n 01-13 mg by Health ([facility]) 11:11: mouth 1 500 MG 34 (one) time tablet each day. levothyroxi 2021-0 Yes 1 (one) UT ne 8-18 time each Health (Synthroid, 11:11: day at the [facility]) 75 34 same time. MCG tablet Calcium 2021-0 Yes 1{tbl} 1 tablet. UT Carbonate 01-13 Health 500 MG 11:11: chewable 34 tablet gabapentin 2021-0 Yes 1{capsu 1 capsule. UT (Neurontin) 01-13 le} Health 300 MG 11:11: capsule 34 ferrous 2022-0 Yes 1{tbl} 1 tablet. UT sulfate 325 18 Health (65 Fe) MG 11:11: tablet 34 guaiFENesin 2021-0 Yes See UT (Carla-Tussi 01-13 administra He alth n) 100 11:11: tion MG/5ML 34 instructio liquid ns. latanoprost 2-0 Yes 1[drp] QD 1 drop 1 UT [...] time tablet each day if needed. gabapentin 2021-2022- No [id number] 300mg Take 1 UT (Neurontin) 01-13 capsule Heal th 300 MG 00:00: 04:59 (300 mg capsule 00 :00 total) by mouth every night. gabapentin 2021-2022- No [id number] 300mg Take 1 UT (Neurontin) 01-13 capsule Heal th 300 MG 00:00: 04:59 (300 mg capsule 00 :00 total) by mouth every night. gabapentin 2021-2022- No [id number] 300mg Take 1 UT (Neurontin) 01-13 capsule Heal th 300 MG 00:00: 04:59 (300 mg capsule 00 :00 total) by mouth every night. gabapentin 0 Yes [id number] 300mg Take 1 UT (Neurontin) 12-29 capsule Healt h 300 MG 00:00: (300 mg capsule 00 total) by mouth every night. gabapentin 2021-2021- No [id number] 300mg Take 1 UT (Neurontin) 12-29 capsule Heal th 300 MG 00:00: 04:59 (300 mg capsule 00 :00 total) by mouth every night. gabapentin 2021-0 2021- No [id number] 300mg Take 1 UT (Neurontin) 8-03 09-03 capsule Heal th 300 MG 00:00: 04:59 (300 mg capsule 00 :00 total) by mouth every night. Xarelto 2.5 2022-0 Yes 2.5mg Q.5D Take [...] Take 1 UT droCHLOROth 6-22 tablet by [facility] iazide 00:00: mouth 1 (Hyzaar) 00 (one) time 50-12.5 MG each day. tablet losartan-hy 2022-0 Yes 1{tbl} QD Take 1 UT droCHLOROth 6-22 tablet by [facility] iazide 00:00: mouth 1 (Hyzaar) 00 (one) time 50-12.5 MG each day. tablet losartan-hy 2022-0 Yes 1{tbl} QD Take 1 UT droCHLOROth 6-22 tablet by [facility] iazide 00:00: mouth 1 (Hyzaar) 00 [...] tablet 00 (one) time each day. ergocalcife 2022-0 Yes TAKE BY UT rol 6-18 MOUTH 1 Health (Vitamin 00:00: TABLET D2) 1.25 MG 00 EVERY WEEK (75506 UT) FOR 12 capsule WEEKS ergocalcife 2022-0 Yes TAKE BY UT rol 6-18 MOUTH 1 Health (Vitamin 00:00: TABLET D2) 1.25 MG 00 EVERY WEEK (04180 UT) FOR 12 capsule WEEKS ergocalcife 2-0 Yes TAKE BY UT rol 6-18 MOUTH 1 Health (Vitamin 00:00: TABLET D2) 1.25 MG 00 EVERY WEEK (75268 UT) FOR 12 capsule WEEKS gabapentin 2021-0 2023- No [id number] 300mg Take 1 UT (Neurontin) 08-18- capsule Heal th 300 MG 00:00: 04:59 (300 mg capsule 00 :00 total) by mouth every night. gabapentin 2021-0 2022- No [id number] 300mg Take 1 UT (Neurontin) 08-18- capsule Heal th 300 MG 00:00: 04:59 (300 mg capsule 00 :00 total) by mouth every night. gabapentin 2021-0 3- No [id number] 300mg Take 1 UT (Neurontin) 08-18- capsule [...] 2 TIMES A l solution DAY timolol Yes INSTILL 1 [facility] di (TIMOPTIC) 8-[address] 0.5 % 00:00: BOTH EYES Hospita ophthalmic 00 2 TIMES A l solution DAY timolol Yes INSTILL 1 [facility] di (TIMOPTIC) 8-[address] 0.5 % 00:00: BOTH EYES Hospita ophthalmic 00 2 TIMES A l solution DAY bimatoprost Yes 1[drp] QD Administer Methodi (LUMIGAN) 5-[address] 0.01 % 10:05: both eyes Hospit a ophthalmic 45 nightly. l drops bimatoprost 2018- Yes 1[drp] QD Administer [facility] (LUMIGAN) 5-[address] 0.01 % 10:05: both eyes Hospit a ophthalmic 45 nightly. l drops bimatoprost 2019-0 Yes 1[drp] QD Administer [facility] (LUMIGAN) 5-[address] 0.01 % 10:05: both eyes Hospit a ophthalmic 45 nightly. l drops venlafaxine 2018-0 Yes 75mg QD Take 75 mg [facility]i XR 4-[address] (EFFEXOR-XR 00:00: daily. Hosp seb ) 75 MG 24 00 l hr capsule venlafaxine 2019-0 Yes 75mg QD Take 75 mg [facility] XR 4-[address] (EFFEXOR-XR 00:00: daily. Hosp seb ) 75 MG 24 00 l hr capsule venlafaxine 2018-0 Yes 75mg QD Take 75 mg [facility]i XR 4-[address] (EFFEXOR-XR 00:00: daily. Hosp seb ) 75 MG 24 00 l hr capsule triamcinolo 0 Yes APPLY TO Me thodi ne 4-[address] (KENALOG) 00:00: AREA TWICE Ho spita 0.5 % cream 00 A DAY l triamcinolo Yes APPLY TO Me thodi ne 4-[address] (KENALOG) 00:00: AREA TWICE Ho spita 0.5 % cream 00 A DAY l triamcinolo 2018- Yes APPLY TO Me thodi ne 4-03 [...] BONIVA 150 2018-0 Yes TAKE BY Meth mraie mg tablet 3-[address] 00:00: [...] st 00:00: daily. Hospita 00 l omeprazole 2019-0 Yes QD Take by Meth marie (PriLOSEC) 3-[address] 40 MG 00:00: daily. Hospita capsule 00 l BYSTOLIC 10 2018-0 Yes 10mg QD Take 10 mg Methodi mg tablet 3-[address] 00:00: daily. Hospita 00 l omeprazole 2019-0 Yes QD Take by Meth marie (PriLOSEC) 3-[address] 40 MG 00:00: daily. Hospita capsule 00 l levothyroxi 2019-0 Yes 75ug QD Take 75 Met hodi ne 3-[address] (SYNTHROID, 00:00: mouth Hospi ta LEVOXYL) 75 00 daily. l mcg tablet levothyroxi 2019-0 Yes 75ug QD Take 75 Met hodi ne 3-[address] (SYNTHROID, 00:00: mouth Hospi ta LEVOXYL) 75 00 daily. l mcg tablet levothyroxi 2019-0 Yes 75ug QD Take 75 Met hodi ne 3-[address] (SYNTHROID, 00:00: mouth Hospi ta LEVOXYL) 75 00 daily. l mcg tablet Immunizations Ordered Immunization Filled Immunization Date Status Commen ts Source Name Name PFIZER COVID-19 MRNA 2021-03-22 Completed Meth odist VACCINATION 00:00:00 [facility] PFIZER COVID-19 MRNA 2021-03-22 Completed Meth odist VACCINATION 00:00:00 [facility] PFIZER COVID-19 MRNA 2021-03-22 Completed Meth odist VACCINATION 00:00:00 [facility] PFIZER COVID-19 MRNA 2020-08-31 Completed Meth odist VACCINATION 00:00:00 [facility] PFIZER COVID-19 MRNA 2020-08-31 Completed Meth odist VACCINATION 00:00:00 [facility] PFIZER COVID-19 MRNA 2020-08-31 Completed Meth odist VACCINATION 00:00:00 [facility] PFIZER COVID-19 MRNA 2020-08-10 Completed Meth odist VACCINATION 00:00:00 [facility] PFIZER COVID-19 MRNA 2020-08-10 Completed Meth odist VACCINATION 00:00:00 [facility] PFIZER COVID-19 MRNA 2020-08-10 Completed Meth odist VACCINATION 00:00:00 [facility] Influenza, 2020-03-10 Completed [facility] injectable, 00:00:00 quadrivalent (afluria, fluzone) Influenza, 2020-03-10 Completed [facility] injectable, 00:00:00 quadrivalent (afluria, fluzone) Influenza, 2020-03-10 Completed [facility] injectable, 00:00:00 quadrivalent (afluria, fluzone) Vital Signs Vital Name Observation Time Observation Value Comments Source Systolic blood pressure 2022-03-25 15:06:00 138 mm[Hg] [facility] Diastolic blood pressure 2022-03-25 15:06:00 72 mm[Hg] [facility] Heart rate 2022-03-25 15:06:00 72 /min [facility] Oxygen saturation in 2022-03-25 15:06:00 99 /min [facility] Arterial blood by Pulse oximetry Procedures Procedure Date / Time Performed Performing Clinician Sourc e WI LUMBAR TRANSFORAMINAL ANTWAN; 2022-03-25 15:20:00 Pricilla Miramontes [facility] 1ST LEVEL WI LUMBAR TRANSFORAMINAL ANTWAN; 2022-03-25 15:20:00 Pricilla Miramontes Charley [facility] EACH ADDL Plan of Care Planned Activity Planned Date Details Comments Source Future Scheduled 2022-11-08 65+ PNEUMOCOCCAL Methodi [facility] Test 08:14:50 VACCINE (1 - PCV) [code = 65+ PNEUMOCOCCAL VACCINE (1 - PCV)] Future Scheduled 2022-11-08 SHINGLES VACCINES (1 Met [facility] Test 08:14:50 of 2) [code = SHINGLES VACCINES (1 of 2)] Future Scheduled 2022-11-08 COVID-19 VACCINE (4 - [facility] Test 08:14:50 Pfizer series) [code = COVID-19 VACCINE (4 - Pfizer series)] Future Scheduled 2022-11-08 INFLUENZA VACCINE Method [facility] Test 08:14:50 [code = INFLUENZA VACCINE] Future Scheduled 2022-05-12 65+ PNEUMOCOCCAL [facility] Hospital Test 04:02:51 VACCINE (1 - PCV) [code = 65+ PNEUMOCOCCAL VACCINE (1 - PCV)] Future Scheduled 2022-05-12 SHINGLES VACCINES (1 Met [facility] Test 04:02:51 of 2) [code = SHINGLES VACCINES (1 of 2)] Future Scheduled 2022-05-12 COVID-19 VACCINE (4 - Me [facility] Test 04:02:51 Booster for Pfizer series) [code = COVID-19 VACCINE (4 - Booster for Pfizer series)] Future Scheduled 2022-05-12 INFLUENZA VACCINE Method [facility] Test 04:02:51 [code = INFLUENZA VACCINE] Future Scheduled 2022-02-17 HEPATITIS B VACCINES Met [facility] Test 07:45:52 (1 of 3 - 3-dose series) [code = HEPATITIS B VACCINES (1 of 3 - 3-dose series)] Future Scheduled 2022-02-17 65+ [facility] 07:[facility]:52 VACCINE (1 - PCV) [code = 65+ PNEUMOCOCCAL VACCINE (1 - PCV)] Future Scheduled 2022-02-17 SHINGLES VACCINES (1 Met [facility] Test 07:45:52 of 2) [code = SHINGLES VACCINES (1 of 2)] Future Scheduled 2022-02-17 COVID-19 VACCINE (4 - Me [facility] Test 07:45:52 Booster for Pfizer series) [code = COVID-19 VACCINE (4 - Booster for Pfizer series)] Future Scheduled 2022-02-17 INFLUENZA VACCINE Method [facility] Test 07:45:52 [code = INFLUENZA VACCINE] Encounters Start End Encounter Admission Attending Care Care Encounter Source Date/Time Date/Time Type Type Clinicians Facility Department ID 2022-07-18 Outpatient [facility] [id number] [place] 13:36:42 [id number] [facility] 2022-04-29 Outpatient [facility] [id number] UT 15:41:34 [id number] [facility] 2022-03-25 Outpatient [facility] [id number] UT 09:11:37 [id number] [facility] 2021-07-08 Outpatient MAURICIO [facility] [id number] UT 11:49:57 [facility] 2021-07-02 Outpatient [facility] [id number] UT 13:37:21 [facility] 2021-06-11 Outpatient [facility] [id number] UT 09:01:29 [facility] 2021-03-18 Outpatient MAURICIO [facility] [id number] UT 11:23:25 [facility] 2021-03-12 Outpatient [facility] [id number] UT 13:38:52 [facility] 2021-01-23 Outpatient MAURICIO [facility] [id number] UT 01:03:46 [facility] 2021-01-22 Outpatient [facility] [id number] UT 13:52:59 Health 2021-01-21 Outpatient MAURICIO, [facility] [id number] UT 11:57:04 [facility] 2021-01-15 Outpatient [facility] [id number] UT 10:31:42 Health 2022-07-28 2022-07-28 Outpatient MAURICIO, [facility] [id number] UT 10:00:00 10:00:00 [facility] 2022-07-28 2022-07-28 Outpatient [facility] [id number] UT 10:00:00 10:00:00 Health 2022-05-13 2022-05-13 Outpatient TITO, [facility] [id number] UT 09:00:00 09:00:00 [facility] 2022-05-13 2022-05-13 Outpatient [facility] [id number] [place] 08:20:00 08:20:00 [facility] 2022-04-26 2022-04-26 Outpatient TITO, [facility] [id number] UT 10:40:00 10:40:00 [facility] 2022-04-07 2022-04-07 Outpatient TITO, [facility] [id number] UT 08:40:00 08:40:00 [facility] 2022-03-25 2022-03-25 Procedure TITO, [facility] [id number] UT 10:20:00 10:20:[address] [id number] Health [id number] 2022-03-11 2022-03-11 Outpatient TITO, [facility] [id number] UT 11:20:00 11:20:00 [facility] 2022-01-20 2022-01-20 Office Mauricio [facility] 6414 [id number] UT 09:45:00 10:39:[address] [id number] Health [id number] 2022-01-20 2022-01-20 Outpatient [facility] [id number] UT 09:45:00 09:45:00 Health 2022-01-13 2022-01-13 Telephonic NASHTELMAAVERY, [facility] 6400 [id number] UT 10:40:00 10:40:[address] [id number] Health [id number] 2021-07-08 2021-07-08 Office Martínez, [facility] 6414 [id number] UT 10:45:00 11:50:[address] [id number] Health [id number] 2021-03-22 2021-03-22 Clinical 1.2.840.1 [id number] Methodi 11:35:00 12:30:[address] 3.430.2.7 Hospit a .3.224131 l .8 2021-03-22 2021-03-22 Travel 1.2.840.1 [id number] Methodi 00:00:00 00:00:[address] 3.430.2.7 0.2.7.3.698 Ho spita .3.065691 084.8 l .8 2021-03-18 2021-03-18 Office YURY Juares [id number] UT 10:30:51 11:24:12 Visit Penelope TRAUMA [id number] Health CLINIC [id number] 2021-03-16 2021-03-16 Travel 1.2.840.1 [id number] Methodi 00:00:00 00:00:[address] 3.430.2.7 0.2.7.3.698 Ho spita .3.391874 084.8 l .8 2021-01-21 2021-01-21 Office YURY Juares [id number] UT 10:58:49 12:04:49 Visit Penelope DEMARCO [id number] [facility] [id number] [id number] 2020-12-22 2020-12-29 Inpatient Rowdy CASTILLO [facility] [id number] [facility] 12:24:00 20:00:00 [facility] 2020-08-31 2020-08-31 Outpatient JAILYN [facility] [id number] [place] 00:00:00 00:00:00 BEREKET [address] 2020-08-10 2020-08-10 Outpatient [facility] [id number] [place] 00:00:00 00:00:[address] 2020-03-25 2020-03-25 Outpatient Jennifer FLOR [facility] [id number] [place] 00:00:00 00:00:[address] Results This patient has no known results.
[2022-11-10] MEDS ORDERED: DICYCLOMINE HCL 10 MG CAP PO PRN (16:14)
[2022-11-10 16:36] VITALS: BMI 28.3
[2022-11-10 16:49] LABS: Absolute Lymphocytes (CBC) 0.9 K/uL (0.7-4.9); Hematocrit 36.5 % (36.0-45.0); MCV 104.7 fL (80-100); MPV 9.5 fL (7.6-11.3); RBC Red Blood Cell Count 3.49 M/uL (3.86-4.86)
[2022-11-10] MEDS ORDERED: D5 0.9 NS 1,000 ML IV SCH (17:00)
[2022-11-10 17:03] LABS: Potassium 4.6 mEq/L (3.5-5.1)
[2022-11-10] MEDS: PANTOPRAZOLE 40MG TABLET PO SCH (17:21)
--- NOTE | 2022-11-10 18:08 | RAD REPORT ---
EXAM DESCRIPTION: RAD - Forearm Left - 11/10/2022 6:03 pm CLINICAL HISTORY: cellulitis Pain and swelling COMPARISON: No comparisons FINDINGS: Moderate soft tissue swelling is seen about the forearm and elbow. No fracture or dislocat ion seen. No soft tissue gas is evident.
[2022-11-10] MEDS ORDERED: NA CHLORIDE 0.9% 50 ML ONE (19:47)
[2022-11-10] MEDS: predniSONE 5 MG TAB PO SCH (20:40)
[2022-11-10] MEDS: CEFTRIAXONE 1,000 MG in NA CHLORIDE 0.9% 50 ML IVPB SCH (20:42)
[2022-11-10] MEDS: OPTH OPTH SCH (20:46)
[2022-11-10] MEDS: LATANOPROST 0.005% OPTH SCH (20:46)
[2022-11-10] MEDS ORDERED: cloNIDine HCL 0.1 MG TAB PO ONE (21:48)
[2022-11-10 21:50] VITALS: O2SAT 98
[2022-11-10 22:31] LABS: Specific Gravity 1.011 (1.005-1.030); Urine Bacteria None Seen /HPF (<20); Urine Bilirubin NEGATIVE (Negative); Urine Blood Negative (Negative); Urine Clarity Clear (Clear); Urine Color Colorless (Yellow); Urine Glucose NEGATIVE (Negative); Urine Protein TRACE (Negative); Urine RBC <5 /HPF (None Seen); Urine Urobilinogen Normal (Normal); Urine pH 5.5 (5.0-7.0)
[2022-11-10] MEDS ORDERED: METOPROLOL TARTRATE 5 MG/5 ML INJ IV STA (22:52)
[2022-11-11 04:10] LABS: Absolute Lymphocytes (CBC) 0.8 K/uL (0.7-4.9); Hematocrit 33.8 % (36.0-45.0); Lymphocytes % 13.4 % (15.3-44.8); MCV 105.5 fL (80-100); MPV 10.1 fL (7.6-11.3)
[2022-11-11 04:18] LABS: Potassium 4.7 mEq/L (3.5-5.1)
[2022-11-11] MEDS: LEVOTHYROXINE SOD 0.075 MG TAB PO SCH (05:51)
[2022-11-11] MEDS: FUROSEMIDE 40 MG TABLET PO SCH (08:26)
[2022-11-11] MEDS: NEBIVOLOL HCL 5 MG TAB PO SCH (08:26)
[2022-11-11] MEDS: VENLAFAXINE HCL 75 MG TABLET PO SCH (08:26)
[2022-11-11] MEDS: predniSONE 5 MG TAB PO SCH ×2 (08:27→21:34)
[2022-11-11] MEDS: PANTOPRAZOLE 40MG TABLET PO SCH ×2 (08:27→17:28)
[2022-11-11] MEDS: GABAPENTIN 100 MG CAP PO SCH (08:27)
[2022-11-11] MEDS: CEFTRIAXONE 1,000 MG in NA CHLORIDE 0.9% 50 ML IVPB SCH ×2 (08:27→20:18)
[2022-11-11] MEDS ORDERED: VANCOMYCIN 1 GM in NA CHLORIDE 0.9% 250 ML IVPB SCH (12:25)
[2022-11-11] MEDS ORDERED: VANCOMYCIN 1.25 GM in NA CHLORIDE 0.9% 250 ML IVPB SCH (13:00)
--- NOTE | 2022-11-11 15:47 | PN ---
Patient feels somewhat better when seen today as compared to the last night when she had significant blood pressure problems. She states she has had some elevations in the past. She did not think it w as this high. It did require clonidine and IV Lopressor to stabilize her. There seemed to be no sig nificant difference at all on her forearm at the area of cellulitis. On further questioning, she hansen s say couple of weeks, maybe a month, ago she did have an opening around the elbow and lateral areas, possibly the etiology for the infection. X-ray of the limb was negative and due to the fact she has been on outpatient cephalosporin and 2 doses of the Rocephin in hospital and creatinine has improved somewhat due to her increased intake and decreased output as she has had no further diarrhea, I feel it is comfortable to put her on vancomycin and consultation note with pharmacy. We will continue to monitor blood pressure closely and possibly add to her regimen if in fact it does not stabilize. HR/MODL Voice ID: [id number] Report ID: [id number]
[2022-11-11] MEDS: cloNIDine HCL 0.1 MG TAB PO PRN (20:26)
[2022-11-11] MEDS: OPTH OPTH SCH (21:00)
[2022-11-11] MEDS: LATANOPROST 0.005% OPTH SCH (21:00)
[2022-11-12 04:19] LABS: Absolute Lymphocytes (CBC) 0.6 K/uL (0.7-4.9); Hematocrit 34.1 % (36.0-45.0); MCV 105.6 fL (80-100); MPV 9.7 fL (7.6-11.3); RBC Red Blood Cell Count 3.23 M/uL (3.86-4.86)
[2022-11-12 04:32] LABS: Potassium 4.1 mEq/L (3.5-5.1)
[2022-11-12] MEDS: LEVOTHYROXINE SOD 0.075 MG TAB PO SCH (06:25)
[2022-11-12] MEDS: PANTOPRAZOLE 40MG TABLET PO SCH ×2 (06:30→16:55)
[2022-11-12] MEDS: NEBIVOLOL HCL 5 MG TAB PO SCH (09:07)
[2022-11-12] MEDS: CEFTRIAXONE 1,000 MG in NA CHLORIDE 0.9% 50 ML IVPB SCH ×2 (09:08→20:33)
[2022-11-12] MEDS: FUROSEMIDE 40 MG TABLET PO SCH (09:09)
[2022-11-12] MEDS: VENLAFAXINE HCL 75 MG TABLET PO SCH (09:09)
[2022-11-12] MEDS: GABAPENTIN 100 MG CAP PO SCH (09:09)
[2022-11-12] MEDS: predniSONE 5 MG TAB PO SCH ×2 (09:09→20:34)
--- NOTE | 2022-11-12 12:08 | PN ---
Date of Progress Note: 11/12/2022 The patient is started on vancomycin and the cellulitic area of her forearm has started to improve co nsiderably. We will continue on this regimen for another few days. Her renal function is also thiago r, presumably because she has not had any further diarrhea, although she states this episodic at home and has had some elevated creatinine, at the present it is stable. Her vital signs are also stable. Slight elevation of systolic, has not required any extra medication for this. We will continue abo ve regimen and plan to send her home with 24 to 48 hours as the vancomycin seems to be the antibiotic of choice and she has had multiple p.o. medicines with poor results and progression of her diarrhea, we therefore preferred to keep her for another few doses of the vancomycin and depending on her resp onse discharge her home at that time, hopefully without continuation of the IV vanc. HR/MODL Voice ID: [id number] Report ID: [id number]
[2022-11-12] MEDS: LATANOPROST 0.005% OPTH SCH (20:35)
[2022-11-12] MEDS: cloNIDine HCL 0.1 MG TAB PO PRN (20:35)
[2022-11-12] MEDS: OPTH OPTH SCH (20:35)
[2022-11-13 04:21] LABS: Absolute Lymphocytes (CBC) 0.8 K/uL (0.7-4.9); Hematocrit 34.4 % (36.0-45.0); Lymphocytes % 15.9 % (15.3-44.8); MCV 105.5 fL (80-100); MPV 9.6 fL (7.6-11.3); RBC Red Blood Cell Count 3.26 M/uL (3.86-4.86)
[2022-11-13] MEDS: LEVOTHYROXINE SOD 0.075 MG TAB PO SCH (07:06)
--- NOTE | 2022-11-13 07:11 | P.PN ---
Subjective Date of Service: 11/13/22 Subjective: Improving Patient states she feels better. Redness has improved. Still having some tenderness in the left arm. Otherwise no new complaints. Review of Systems 10-point ROS is otherwise unremarkable Physical Examination - Vital Signs Temperature: 97 F Blood Pressure: 166/74 Pulse: 60 Respirations: 16 Pulse Ox (%): 98 - Physical Exam General: Alert, In no apparent distress, Oriented x3 Respiratory: Clear to auscultation bilaterally, Normal air movement Cardiovascular: Regular rate/rhythm, Normal S1 S2 Gastrointestinal: Normal bowel sounds, Soft and benign, Non-distended, No tenderness Musculoskeletal: No clubbing, No swelling, No tenderness Integumentary: Tenderness/swelling, Erythema Neurological: Sensation intact, Cranial nerves 3-12 intact - Studies Laboratory Data (last 24 hrs) 11/13/22 04:07: WBC 5.20, Hgb 11.5 L, Hct 34.4 L, Plt Count 122 L Medications List Reviewed: Yes Assessment & Plan - Problems (Diagnosis) (1) Cellulitis of forearm, left Current Visit: Yes Status: Acute (2) Abdominal pain Current Visit: No Status: Acute (3) Acute renal failure Current Visit: No Status: Acute Qualifiers: (4) Bandemia Current Visit: No Status: Acute - Plan 1. Continue with IV antibiotic 2. Continue with local wound care 3. Steroid 4. Heplock IV 5. Monitor CBC 6. Strict blood sugar monitoring 7. Pain control 8. GI and DVT prophylaxis Discharge Plan: Home Plan to discharge in: 24 Hours - Advance Directives Does patient have a Living Will: No Does patient have a Durable POA for Healthcare: No - Code Status/Comfort Care Code Status Assessed: Yes Code Status: Full Code Critical Care: No Time Spent Managing PTS Care (In Minutes): 35
[2022-11-13] MEDS: PANTOPRAZOLE 40MG TABLET PO SCH ×2 (08:10→16:10)
[2022-11-13] MEDS: NEBIVOLOL HCL 5 MG TAB PO SCH (08:41)
[2022-11-13] MEDS: GABAPENTIN 100 MG CAP PO SCH (08:41)
[2022-11-13] MEDS: CEFTRIAXONE 1,000 MG in NA CHLORIDE 0.9% 50 ML IVPB SCH ×2 (08:41→21:20)
[2022-11-13] MEDS: VENLAFAXINE HCL 75 MG TABLET PO SCH (08:42)
[2022-11-13] MEDS: predniSONE 5 MG TAB PO SCH ×2 (08:42→21:19)
[2022-11-13] MEDS: FUROSEMIDE 40 MG TABLET PO SCH (08:42)
[2022-11-13] MEDS: cloNIDine HCL 0.1 MG TAB PO PRN (11:33)
[2022-11-13] MEDS: VANCOMYCIN 1.25 GM in NA CHLORIDE 0.9% 250 ML IVPB SCH (14:10)
[2022-11-13] MEDS ORDERED: HYDROCORTISONE SUC 100 MG INJ IV ONE (15:23)
[2022-11-13] MEDS: HYDRALAZINE HCL 20 MG/ML VIAL IV PRN (16:09)
[2022-11-13] MEDS: ENOXAPARIN 30 MG/0.3 ML SQ SCH (16:54)
[2022-11-13] MEDS ORDERED: GABAPENTIN 300 MG CAP PO SCH (21:00)
[2022-11-13] MEDS: LATANOPROST 0.005% OPTH SCH (21:00)
[2022-11-13] MEDS: OPTH OPTH SCH (21:00)
[2022-11-13] MEDS ORDERED: LATANOPROST EACH EYE SCH (21:00)
[2022-11-14] MEDS: HYDRALAZINE HCL 20 MG/ML VIAL IV PRN (01:52)
[2022-11-14 06:59] LABS: Hematocrit 36.9 % (36.0-45.0); MPV 9.8 fL (7.6-11.3); RBC Red Blood Cell Count 3.51 M/uL (3.86-4.86)
[2022-11-14 07:04] LABS: ALT/SGPT 17 U/L (13-56); AST/SGOT 14 U/L (15-37); Albumin 3.1 g/dL (3.4-5.0); Alkaline Phosphatase 46 U/L (45-117); Bilirubin Total 0.2 mg/dL (0.2-1.0); Protein, Total 5.9 g/dL (6.4-8.2)
[2022-11-14 07:06] LABS: Bilirubin Direct < 0.1 mg/dL (0-0.2); Bilirubin Indirect, Calculated ND mg/dL (0.2-0.8)
[2022-11-14] MEDS: LEVOTHYROXINE SOD 0.075 MG TAB PO SCH (07:21)
[2022-11-14 07:28] LABS: Magnesium 2.2 mg/dL (1.6-2.4); Potassium 3.9 mEq/L (3.5-5.1)
[2022-11-14] MEDS: CEFTRIAXONE 1,000 MG in NA CHLORIDE 0.9% 50 ML IVPB SCH ×2 (08:56→20:56)
[2022-11-14] MEDS: VENLAFAXINE HCL 75 MG TABLET PO SCH (08:56)
[2022-11-14] MEDS: FUROSEMIDE 40 MG TABLET PO SCH (08:56)
[2022-11-14] MEDS: predniSONE 5 MG TAB PO SCH ×2 (08:57→20:56)
[2022-11-14] MEDS: GABAPENTIN 100 MG CAP PO SCH (08:57)
[2022-11-14] MEDS: PANTOPRAZOLE 40MG TABLET PO SCH ×2 (08:57→16:13)
[2022-11-14] MEDS: NEBIVOLOL HCL 5 MG TAB PO SCH (08:57)
--- NOTE | 2022-11-14 08:58 | P.CNS ---
Date of Consult: 11/14/22 Reason for Consult: Cellulitis Left Arm Chief Complaint: Left arm redness and swelling History of Present Illness: Patient is an 82 yo female with a history of CKD, hypothyroidism, hypertension and gout who presented to the ED with left arm cellulitis, failed outpatient antibiotic therapy on cephalosporin. Patient is afebrile, no leukocytosis. On presentation to the ED, patient was noted with left arm swelling and erythema. Patient is seen in room 411, awake and oriented x4, NAD. Denies any complaints at this time. Left arm without edema. Mild erythema noted. Patient reports improvement in left arm edema/erythema since yesterday. Allergies propoxyphene HCl [From Darvon] Allergy (Verified 08/20/20 13:09) Itching Home medications list reviewed: Yes Home Medications: Latanoprost [Xalatan] 1 drop EACH EYE BEDTIME 08/29/13 Nebivolol HCl [Bystolic] 1 tab PO NOON 08/29/13 Venlafaxine HCl *Xr* [Effexor XR] 1 tab PO DAILY 08/29/13 Gabapentin 300 mg PO BEDTIME 03/10/22 Rivaroxaban [Xarelto] 2.5 mg PO BID 03/10/22 Furosemide 1 tab PO DAILY 11/10/22 Levothyroxine Sodium 1 tab PO DAILY 11/10/22 Omeprazole [Prilosec] 1 cap PO DAILY 11/10/22 predniSONE [Prednisone*] 10 mg PO DAILY 11/10/22 - Past Medical/Surgical History Diabetic: No -: Gerd -: Hypothyroid -: Depression -: CKD3 -: colon cancer -: Colostomy - Social History Smoking Status: Never smoker Alcohol use: No CD- Drugs: No Caffeine use: No Place of Residence: Home Review of Systems 10-point ROS is otherwise unremarkable Integumentary: As per HPI Physical Examination Temp Pulse Resp BP Pulse Ox 97.9 F 84 16 167/74 H 96 11/14/22 08:00 11/14/22 08:00 11/14/22 08:00 11/14/22 08:00 11/14/22 08:00 General: Alert, In no apparent distress, Oriented x3 HEENT: Atraumatic, Normocephalic Neck: Supple, JVD not distended Respiratory: Clear to auscultation bilaterally, Normal air movement Cardiovascular: No edema, Normal pulses Gastrointestinal: Normal bowel sounds, Soft and benign, Non-distended Musculoskeletal: No clubbing, No swelling Integumentary: No rashes, No breakdown, Erythema (left arm mild) Neurological: Normal speech, Normal tone, Normal affect Laboratory Data (last 24 hrs) 11/14/22 06:26: Total Bilirubin 0.2, AST 14 L, ALT 17, Alkaline Phosphatase 46 11/14/22 06:26: Sodium 144, Potassium 3.9, BUN 44 H, Creatinine 1.55 H, Glucose 103, Magnesium 2.2 11/14/22 06:26: WBC 7.90, Hgb 12.2, Hct 36.9, Plt Count 138 L Imagings Data: - Reviewed Conclusions/Impression: Problem List Hypertension Hypothyroidism CKD III Depression GERD Mild PCM Cellulitis Left Arm - Failed outpatient antibiotic therapy; reportedly on Cephalosporin antibiotic as outpatient. - XR Left forearm 11/10: "Moderate soft tissue swelling is seen about the forearm and elbow. No fracture or dislocation seen. No soft tissue gas is evident." - Currently on Rocephin (11/10) and Vancomycin (11/11). Improvement reported once Vancomycin was added. - No leukocytosis. Afebrile. Recommendations - Patient is currently on Vancomycin and Rocephin. Consider switch to Doxycycline PO upon discharge. - Continue antibiotic therapy x 7-10 days. - Follow up with PCP as outpatient in 1-2 weeks. - Start on probiotic ID will follow patient as needed. Case discussed with Opal Crabtree
[2022-11-14] MEDS ORDERED: HOME MED 1 EA UNK (Omeprazole [Prilosec] 40 MG Capsule.Dr) PO SCH (09:00)
[2022-11-14] MEDS ORDERED: FUROSEMIDE 20 MG TABLET PO SCH (09:00)
[2022-11-14] MEDS ORDERED: HOME MED 1 EA UNK (Rivaroxaban [Xarelto] 2.5 MG Tablet) PO SCH (09:00)
[2022-11-14] MEDS ORDERED: VENLAFAXINE HCL XR 75 MG CAP PO SCH (09:00)
[2022-11-14] MEDS ORDERED: LEVOTHYROXINE SOD 0.075 MG TAB PO SCH (09:00)
[2022-11-14] MEDS ORDERED: predniSONE 20 MG TAB PO SCH (09:00)
[2022-11-14] MEDS ORDERED: HYDRALAZINE HCL 25 MG TABLET PO ONE (09:11)
[2022-11-14] MEDS ORDERED: HOME MED 1 EA UNK (Nebivolol Hcl [Bystolic] 10 MG Tablet) PO SCH (12:00)
[2022-11-14] MEDS: HYDRALAZINE HCL 25 MG TABLET PO SCH ×2 (13:42→20:56)
--- NOTE | 2022-11-14 15:26 | PN ---
Date of Progress Note: 11/13/2022 Since the patient has been on the vancomycin, the cellulitis has improved markedly. I feel we can st art p.o. clindamycin today and if there does not have some diarrhea with this after vancomycin dose a round noon, tomorrow she should be able to be discharged. The other issue has been another hypertens amilcar episode, which was somewhat responsive to be presently on this occasion and this was added to her regimen as well. Vital signs other than blood pressure are stable. Her blood work shows good creat inine levels, actually better than she has had for some time. Hydration is improved. Mentation is i mproved. She should probably discharge tomorrow after the vancomycin dose. HR/MODL Voice ID: [id number] Report ID: [id number]
[2022-11-14] MEDS: ENOXAPARIN 30 MG/0.3 ML SQ SCH (16:13)
[2022-11-14] MEDS: LACTOBACILLUS/ACIDOPHILUS TAB PO SCH (16:32)
[2022-11-14] MEDS: LATANOPROST 0.005% OPTH SCH (21:00)
[2022-11-14] MEDS: OPTH OPTH SCH (21:00)
[2022-11-15] MEDS: HYDRALAZINE HCL 20 MG/ML VIAL IV PRN (00:58)
[2022-11-15] MEDS: LEVOTHYROXINE SOD 0.075 MG TAB PO SCH (06:26)
[2022-11-15] MEDS: predniSONE 5 MG TAB PO SCH (09:10)
[2022-11-15] MEDS: NEBIVOLOL HCL 5 MG TAB PO SCH (09:10)
[2022-11-15] MEDS: LACTOBACILLUS/ACIDOPHILUS TAB PO SCH (09:11)
[2022-11-15] MEDS: VENLAFAXINE HCL 75 MG TABLET PO SCH (09:11)
[2022-11-15] MEDS: CEFTRIAXONE 1,000 MG in NA CHLORIDE 0.9% 50 ML IVPB SCH (09:11)
[2022-11-15] MEDS: PANTOPRAZOLE 40MG TABLET PO SCH (09:11)
[2022-11-15] MEDS: GABAPENTIN 100 MG CAP PO SCH (09:12)
[2022-11-15] MEDS: FUROSEMIDE 40 MG TABLET PO SCH (09:12)
[2022-11-15] MEDS: HYDRALAZINE HCL 25 MG TABLET PO SCH ×2 (09:12→14:07)
[2022-11-15] MEDS: VANCOMYCIN 1.25 GM in NA CHLORIDE 0.9% 250 ML IVPB SCH (11:05)
--- NOTE | 2022-11-15 11:13 | P.PN ---
Date of Service: 11/15/22 Chief Complaint: Left arm redness and swelling Subjective: No new changes. Improving. Denies any complaints. A&Ox3. Cellulitis improving Physical Examination Temp Pulse Resp BP Pulse Ox 97.8 F 76 18 165/92 H 97 11/15/22 08:00 11/15/22 08:00 11/15/22 08:00 11/15/22 08:00 11/15/22 08:00 General: Alert, In no apparent distress, Oriented x3 HEENT: Atraumatic, Normocephalic Neck: Supple, JVD not distended Respiratory: Clear to auscultation bilaterally, Normal air movement Cardiovascular: No edema, Normal pulses Gastrointestinal: Normal bowel sounds, Soft and benign, Non-distended Musculoskeletal: No clubbing, No swelling Integumentary: No rashes, No breakdown Neurological: Normal speech, Normal tone, Normal affect Laboratory Data - Reviewed Microbiology Data - None Imagings Data: - Reviewed Medication List: Reviewed Conclusions/Impression: Problem List Hypertension Hypothyroidism CKD III Depression GERD Mild PCM Cellulitis Left Arm Cellulitis Left Arm - Failed outpatient antibiotic therapy; reportedly on Cephalosporin antibiotic as outpatient. - XR Left forearm 11/10: "Moderate soft tissue swelling is seen about the forearm and elbow. No fracture or dislocation seen. No soft tissue gas is evident." - Currently on Rocephin (11/10) and Vancomycin (11/11). Improvement reported once Vancomycin was added. - No leukocytosis. Afebrile. - Improving. - on probiotic Recommendations - Consider switch to Doxycycline 100 mg PO BID for 3-5 days upon discharge, as she has been on Vancomycin IV x 5 days as inpatient. - Follow up with PCP in 1-2 weeks. ID will follow patient as needed. Case discussed with Opal Crabtree
[2022-11-15 12:59] VITALS: BP 170/79; TEMP 98
--- NOTE | 2022-11-15 15:28 | PN ---
Date of Progress Note: 11/15/2022 The patient continues to improve. Minimal erythema on the arm, minimal pain. I feel the patient cou ld be discharged on clindamycin. She has had a couple of doses now with no presence of diarrhea. Bl ood pressure is still slightly elevated. We will add Apresoline 25 mg 3 times a day to the regimen a nd leave some clonidine on a p.r.n. basis. She has also activated Home Health and to see me in 1 praveen caceres HR/MODL Voice ID: [id number] Report ID: [id number]
== END 2022-11-15 15:20 | disposition home health service (06) | DRG 603 ==
LOC: 4TH 15:31 → OBSVTOIN 11-11 17:30
PROVIDERS: ADMIT Family Medicine; ATTEND Family Medicine
DX: L03.114 Cellulitis of left upper limb (principal); N17.9 Acute kidney failure, unspecified; D72.825 Bandemia; E03.9 Hypothyroidism, unspecified; I12.9 Hypertensive chronic kidney disease with stage 1 through stage 4 chronic kidney disease, or unspecified chronic kidney disease; N18.30 Chronic kidney disease, stage 3 unspecified; M10.9 Gout, unspecified; K21.9 Gastro-esophageal reflux disease without esophagitis; Z93.3 Colostomy status; Z88.8 Allergy status to other drugs, medicaments and biological substances; Z79.01 Long term (current) use of anticoagulants; Z79.52 Long term (current) use of systemic steroids; Z79.899 Other long term (current) drug therapy
CPT/HCPCS: 36415; 80048; 80076; 80202; 81001; 82607; 83540; 83735; 85025; 97116; 97161; 97530; G0378; G0379; J0360; J0696; J1650; J1720; J7050; J7512

== ENCOUNTER 2023-01-10 12:35 | Inpatient (IN) | payer OTHER ==
--- OUTSIDE RECORDS SUMMARY | 2023-01-10 16:13 | XMS REPORT | Continuity of Care Document ---
:1940 Author Organization [facility] t Address [address] [place] [address] Care Team Providers Name Role Phone Samm Mesa MD Primary Care Physician KIAN MARTÍNEZ Attending Clinician Unavailable RONALDO FRANCIS Attending Clinician Unavailable Penelope Alves Attending Clinician LORE CASTILLO Attending Clinician Unavailable BEREKET GLASER Attending Clinician Unavailable Jennifer FLOR Attending Clinician Unavailable LORE CASTILLO Admitting Clinician Unavailable Payers Payer Name Policy Type Policy Number Effective Date Expiration Date S ource [employer] MEDICARE [id number] 2020 2021 PPO 00:00:00 00:00:00 Problems Condition [...] Stop Date Quantity Comments Source Gender [facility] History [...] Current drinker [facility] 00:00:00 00:00:00 [facility] (finding) Sex Assigned At [birth year] [facility] 00:00[facility]00 [facility]00 [facility] Smoking Status Start Date Stop Date Source Never smoked tobacco [facility] Medications Ordered Filled Start Stop Current Ordering Indication Dosage Frequency Signature Comments Components Source Medication Medication Date Date Medication? Clinician (SIG) Name Name lidocaine 2021-05- No [id number] 10mL [facility] PF 03-25 Health (Xylocaine) 15:11: 15:11 1 % 19 :00 injection 10 mL bupivacaine 2021-05- No [id number] 3mL U T PF 03-25 Health (Marcaine) 15:11: 15:11 0.25 % 19 :00 injection 3 mL dexamethaso 2021-05- No [id number] 10mg U T ne (PF) 03-25 Health (Decadron) 15:11: 15:11 injection 19 :00 10 mg iohexol 2021-05- No [id number] 2mL UT (OMNIPaque) 03-25 Health 300 MG/ML 15:11: 15:11 injection 2 19 :00 mL iohexol 2021-05- No [id number] 2mL 2 mL, Once UT (OMNIPaque) 03-25 PRN Health 300 MG/ML 15:11: 15:11 Procedure, injection 2 19 :00 Starting mL on Mon03/25/22 at 1011, For 1 dose dexamethaso 2021-05- No [id number] 10mg 10 mg, UT ne (PF) 03-25 Once PRN Health (Decadron) 15:11: 15:11 Procedure, injection 19 :00 Starting 10 mg on 03/25/22 at 1011, For 1 dose bupivacaine 2021-05- No [id number] 3mL 3 mL, Once UT PF 03-25 PRN Health (Marcaine) 15:11: 15:11 Procedure, 0.25 % 19 :00 Starting injection 3 on Fri mL 03/25/22 at 1011, For 1 dose lidocaine 2021-05- No [id number] 10mL 10 mL, U T PF 03-25 Once PRN Health (Xylocaine) 15:11: 15:11 Procedure, 1 % 19 :00 Starting injection on Fri 10 mL 03/25/22 at 1011, For 1 dose magnesium 2021-0 Yes Q6H every 6 UT hydroxide 8-18 (six) Health (Milk of 11:11: hours. Magnesia) 35 400 MG/5ML suspension phenol 2021-0 Yes 1 spray UT (Chlorasept 8-18 spit out [facility] ic) 1.4 % 11:11: after 15 liquid 35 seconds as needed oxyCODONE 2-0 Yes Q6H every 6 UT (Roxicodone 8-18 ([facility]) Health ) 5 MG 11:11: hours. immediate 35 release tablet omeprazole 2021-0 Yes 1{tbl} QD Take 1 UT (PriLOSEC) 8-18 tablet by [facility] [address] 11:11: mouth 1 capsule [...] 1 spray UT (Chlorasept 8-18 spit out [facility] ic) 1.4 % 11:11: after 15 liquid 35 seconds as needed oxyCODONE 2022-0 Yes Q6H every 6 UT (Roxicodone 8-18 (six) Health ) 5 MG 11:11: hours. immediate 35 release tablet omeprazole 2021-0 Yes 1{tbl} QD Take 1 UT (PriLOSEC) 8-18 tablet by [facility] [address] 11:11: mouth 1 capsule 35 (one) time each day. venlafaxine Yes 1 (one) UT (Effexor) -18 time each Healt h 75 MG 11:11: day at the tablet 35 same time. magnesium 2021-0 Yes Q6H every 6 UT hydroxide 01-13 (six) [facility] (Milk of 11:11: hours. Magnesia) 35 400 MG/5ML suspension phenol Yes 1 spray UT (Chlorasept 01-13 spit out [facility]) 1.4 % 11:11: after 15 liquid 35 seconds as needed oxyCODONE Yes Q6H every 6 UT (Roxicodone 01-13 ([facility]) [facility] ) 5 MG 11:11: hours. immediate 35 release tablet omeprazole Yes 1{tbl} QD Take 1 UT (PriLOSEC) 01-13 tablet by [facility] [address] 11:11: mouth 1 capsule 35 (one) time each day. venlafaxine Yes 1 (one) UT (Effexor) - time each Healt h 75 MG 11:11: day at the tablet 35 same time. Calcium Yes 1{tbl} 1 tablet. UT Carbonate 01-13 [facility] 500 MG 11:11: chewable 34 tablet gabapentin Yes 1{capsu 1 capsule. UT (Neurontin) 01-13 le} Health 300 MG 11:11: capsule 34 ferrous Yes 1{tbl} 1 tablet. UT sulfate 325 01-13 [facility] (65 Fe) MG 11:11: tablet 34 guaiFENesin Yes See UT (Carla-Tussi 01-13 administra He alth n) 100 11:11: tion MG/5ML 34 instructio liquid ns. latanoprost Yes 1[drp] QD 1 drop 1 UT (Xalatan) 01-13 (one) time [facility] 0.005 % 11:11: each day. ophthalmic 34 solution levoFLOXaci Yes 500mg QD Take 500 U T n 01-13 mg by [facility] (Levaquin) 11:11: mouth 1 500 MG 34 (one) time tablet each day. levothyroxi 2021-0 Yes 1 (one) UT ne 8-18 time each Health (Synthroid, 11:11: day at the [facility]) 75 34 same time. MCG tablet Calcium [...] U T n 01-13 mg by Health ([facility]) 11:11: mouth 1 500 MG 34 (one) time tablet each day. levothyroxi 2021-0 Yes 1 (one) UT ne 8-18 time each Health (Synthroid, 11:11: day at the [facility]) 75 34 same time. MCG tablet Calcium [...] each day if needed. gabapentin 2021-2022- No [id number] 300mg Take 1 UT (Neurontin) 01-13 capsule Heal th 300 MG 00:00: 04:59 (300 mg capsule 00 :00 total) by mouth every night. gabapentin 2021-2022- No [id number] 300mg Take 1 UT (Neurontin) 01-13 capsule Heal th 300 MG 00:00: 04:59 (300 mg capsule 00 :00 total) by mouth every night. gabapentin 2021-2022- No [id number] 300mg Take 1 UT (Neurontin) 01-13 capsule Heal th 300 MG 00:00: 04:59 (300 mg capsule 00 :00 total) by mouth every night. gabapentin 0 Yes [id number] 300mg Take 1 UT (Neurontin) 12-29 capsule Healt h 300 MG 00:00: (300 mg capsule 00 total) by mouth every night. gabapentin 2021-2021- No [id number] 300mg Take 1 UT (Neurontin) 12-29 capsule Heal th 300 MG 00:00: 04:59 (300 mg capsule 00 :00 total) by mouth every night. gabapentin 2021-0 2021- No [id number] 300mg Take 1 UT (Neurontin) 8-03 09-03 [...] Take 1 UT droCHLOROth 6-22 tablet by [facility] iazide 00:00: mouth 1 (Hyzaar) 00 (one) time 50-12.5 MG each day. tablet losartan-hy 2022-0 Yes 1{tbl} QD Take 1 UT droCHLOROth 6-22 tablet by [facility] iazide 00:00: mouth 1 (Hyzaar) 00 (one) time 50-12.5 MG each day. tablet losartan-hy 2022-0 Yes 1{tbl} QD Take 1 UT droCHLOROth 6-22 tablet by [facility] iazide 00:00: mouth 1 (Hyzaar) 00 (one) [...] TABLET D2) 1.25 MG 00 EVERY WEEK (08342 UT) FOR 12 capsule WEEKS ergocalcife 2022-0 Yes TAKE BY UT rol 6-18 MOUTH 1 Health (Vitamin 00:00: TABLET D2) 1.25 MG 00 EVERY WEEK (94812 UT) FOR 12 capsule WEEKS ergocalcife 2-0 Yes TAKE BY UT rol 6-18 MOUTH 1 Health (Vitamin 00:00: TABLET D2) 1.25 MG 00 EVERY WEEK (49071 UT) FOR 12 capsule WEEKS gabapentin 2021-0 2023- No [id number] 300mg Take 1 UT (Neurontin) 08-18- capsule Heal th 300 MG 00:00: 04:59 (300 mg capsule 00 :00 total) by mouth every night. gabapentin 2021-0 2022- No [id number] 300mg Take 1 UT (Neurontin) 08-18- capsule Heal th 300 MG 00:00: 04:59 (300 mg capsule 00 :00 total) by mouth every night. gabapentin 2021-0 3- No [id number] 300mg Take 1 UT (Neurontin) 08-18- capsule [...] both solution 00 eyes every night. lidocaine 2021- Yes APPLY 1 UT (Lidoderm) 2-15 PATCH [...] a ophthalmic 45 nightly. l drops bimatoprost Yes 1[drp] QD Administer [facility] (LUMIGAN) [...] % cream 00 A DAY l triamcinolo 2019-0 Yes APPLY TO Me thodi ne 4-[address] (KENALOG) 00:00: AREA TWICE Ho spita 0.5 % cream 00 A DAY l triamcinolo 2019-0 Yes APPLY TO Me thodi ne 4-[address] (KENALOG) 00:00: AREA TWICE Ho spita 0.5 % cream 00 A DAY l triamcinolo 2019-0 Yes APPLY TO Me thodi ne 4-[address] (KENALOG) 00:00: AREA TWICE Ho spita 0.5 % cream 00 A DAY l BONIVA 150 2018-0 Yes TAKE BY [facility]ie mg tablet 3-[address] 00:00: TABLET Hospita 00 EVERY l MONTH BONIVA 150 2019-0 Yes TAKE BY [facility] mg tablet 3-[address] 00:00: TABLET Hospita 00 EVERY l MONTH BONIVA 150 2019-0 Yes TAKE BY [facility] mg tablet 3-[address] 00:00: TABLET Hospita 00 EVERY l MONTH BONIVA 150 2019-0 Yes TAKE BY [facility] marie mg tablet [...] st 40 MG 00:00: daily. Hospita capsule l BYSTOLIC 10 Yes 10mg QD Take 10 mg [facility] mg tablet 3-[address] 00:00: daily. Hospita 00 l omeprazole 2019-0 Yes QD Take by [facility] mar[facility] (PriLOSEC) 3-[address] 40 MG 00:00: daily. Hospita capsule l BYSTOLIC 10 Yes 10mg QD Take 10 mg [facility] mg tablet 3-[address] 00:00: daily. Hospita l omeprazole 2019-0 Yes QD Take by [...] MRNA 2021-03-22 Completed [facility] VACCINATION 00:00:00 [facility] PFIZER COVID-19 MRNA 2021-03-22 Completed [facility] od[facility] VACCINATION 00:00:00 [facility] PFIZER COVID-19 MRNA 2021-03-22 Completed [facility] odist VACCINATION 00:00:00 [facility] PFIZER COVID-19 MRNA 2021-03-22 Completed [facility] odist VACCINATION 00:00:00 [facility] PFIZER COVID-19 MRNA 2020-08-31 Completed Meth odist VACCINATION 00:00:00 [facility] PFIZER COVID-19 MRNA 2020-08-31 Completed [facility]ist VACCINATION 00:00:00 [facility] PFIZER COVID-19 MRNA 2020-08-31 Completed Meth odist VACCINATION 00:00:00 [facility] PFIZER COVID-19 MRNA 2020-08-31 Completed [facility] odist VACCINATION 00:00:00 [facility] PFIZER COVID-19 MRNA 2020-08-10 Completed Meth odist VACCINATION 00:00:00 [facility] PFIZER COVID-19 MRNA 2020-08-10 Completed [facility] odist VACCINATION 00:00:00 [facility] PFIZER COVID-19 MRNA 2020-08-10 Completed [facility] odist VACCINATION 00:00:00 [facility] PFIZER COVID-19 MRNA 2020-08-10 Completed [facility] od[facility] VACCINATION 00:00:00 [facility] Influenza, 2020-03-10 [facility] injectable, 00:00:00 quadrivalent (afluria, fluzone) Influenza, 2020-03-10 Completed [facility] injectable, 00:00:00 quadrivalent (afluria, fluzone) Influenza, 2020-03-10 Completed [facility] injectable, 00:00:00 quadrivalent (afluria, fluzone) Vital Signs Vital Name Observation Time Observation Value Comments Source Systolic blood pressure 2022-03-25 15:06:00 138 mm[Hg] [facility] Diastolic blood pressure 2022-03-25 15:06:00 72 mm[Hg] [facility] Heart rate 2022-03-25 15:06:00 72 /min [facility] Oxygen saturation in 2022-03-25 15:06:00 99 /min [facility] Arterial blood by Pulse oximetry Procedures Procedure Date / Time Performed Performing Clinician Sourc e [place] LUMBAR TRANSFORAMINAL ANTWAN; 2022-03-25 15:20:00 [facility] 1ST LEVEL [place] LUMBAR TRANSFORAMINAL ANTWAN; 2022-03-25 15:20:00 Aidalibby [facility] EACH ADDL Plan of Care Planned Activity Planned Date Details Comments Source Future Scheduled 2022-12-29 65+ PNEUMOCOCCAL [facility] Test 02:08:46 VACCINE (1 - PCV) [code = 65+ PNEUMOCOCCAL VACCINE (1 - PCV)] Future Scheduled 2022-12-29 SHINGLES VACCINES (1 Met [facility] Test 02:08:46 of 2) [code = SHINGLES VACCINES (1 of 2)] Future Scheduled 2022-12-29 COVID-19 VACCINE (4 - [facility] Test 02:08:46 Pfizer series) [code = COVID-19 VACCINE (4 - Pfizer series)] Future Scheduled 2022-12-29 INFLUENZA VACCINE Method [facility] Test 02:08:46 [code = INFLUENZA VACCINE] Future Scheduled 2022-11-08 65+ PNEUMOCOCCAL [facility] Test 08:14:50 VACCINE (1 - PCV) [code = 65+ PNEUMOCOCCAL VACCINE (1 - PCV)] Future Scheduled 2022-11-08 SHINGLES VACCINES (1 Met [facility] Test 08:14:50 of 2) [code = SHINGLES VACCINES (1 of 2)] Future Scheduled 2022-11-08 COVID-19 VACCINE (4 - [facility] Test 08:14:50 Pfizer series) [code = COVID-19 VACCINE (4 - Pfizer series)] Future Scheduled 2022-11-08 INFLUENZA VACCINE Method [facility] Test 08:14:50 [code = INFLUENZA VACCINE] Future Scheduled 2022-05-12 65+ PNEUMOCOCCAL [facility] Test 04:02:51 VACCINE (1 - PCV) [code = 65+ PNEUMOCOCCAL VACCINE (1 - PCV)] Future Scheduled 2022-05-12 SHINGLES VACCINES (1 Met [facility] Test 04:02:51 of 2) [code = SHINGLES VACCINES (1 of 2)] Future Scheduled 2022-05-12 COVID-19 VACCINE (4 - [facility] Test 04:02:51 Booster for Pfizer series) [code = COVID-19 VACCINE (4 - Booster for Pfizer series)] Future Scheduled 2022-05-12 INFLUENZA VACCINE Method [facility] Hospital Test 04:02:51 [code = INFLUENZA VACCINE] Future Scheduled 2022-02-17 HEPATITIS B VACCINES Met [facility] Test 07:45:52 (1 of 3 - 3-dose series) [code = HEPATITIS B VACCINES (1 of 3 - 3-dose series)] Future Scheduled 2022-02-17 65+ [facility] 07:45:52 VACCINE (1 - PCV) [code = 65+ PNEUMOCOCCAL VACCINE (1 - PCV)] Future Scheduled 2022-02-17 SHINGLES VACCINES (1 Met [facility] Test 07:45:52 of 2) [code = SHINGLES VACCINES (1 of 2)] Future Scheduled 2022-02-17 COVID-19 VACCINE (4 - Me [facility] Test 07:45:52 Booster for Pfizer series) [code = COVID-19 VACCINE (4 - Booster for Pfizer series)] Future Scheduled 2022-02-17 INFLUENZA VACCINE Method [facility] Test 07:45:52 [code = INFLUENZA VACCINE] Encounters Start End Encounter Admission Attending Care Care Encounter Source Date/Time Date/Time Type Type Clinicians Facility Department ID 2022-07-18 Outpatient [facility] [id number] [place] 13:36:42 [id number] [facility] 2022-04-29 Outpatient [facility] [id number] [place] 15:41:34 [id number] [facility] 2022-03-25 Outpatient [facility] [id number] [place] 09:11:37 [id number] [facility] 2021-07-08 Outpatient MATHEUS, [facility] [id number] [place] 11:49:57 [facility] 2021-07-02 Outpatient [facility] [id number] [place] 13:37:21 [facility] 2021-06-11 Outpatient [facility] [id number] [place] 09:01:29 [facility] 2021-03-18 Outpatient MATHEUS, [facility] [id number] [place] 11:23:25 [facility] 2021-03-12 Outpatient [facility] [id number] [place] 13:38:52 [facility] 2021-01-23 Outpatient MATHEUS, [facility] [id number] [place] 01:03:46 [facility] 2021-01-22 Outpatient [facility] [id number] UT 13:52:59 Health 2021-01-21 Outpatient MATHEUS, [facility] [id number] [place] 11:57:04 [facility] 2021-01-15 Outpatient [facility] [id number] [place] 10:31:42 Health 2022-07-28 2022-07-28 Outpatient MARTÍNEZ, [facility] [id number] UT 10:00:00 10:00:00 [facility] 2022-07-28 2022-07-28 Outpatient [facility] [id number] UT 10:00:00 10:00:00 Health 2022-05-13 2022-05-13 Outpatient TITO, [facility] [id number] [place] 09:00:00 09:00:00 [facility] 2022-05-13 2022-05-13 Outpatient [facility] [id number] [place] 08:20:00 08:20:00 [facility] 2022-04-26 2022-04-26 Outpatient TITO, [facility] [id number] [place] 10:40:00 10:40:00 [facility] 2022-04-07 2022-04-07 Outpatient TITO, [facility] [id number] [place] 08:40:00 08:40:00 [facility] 2022-03-25 2022-03-25 Procedure AIDAELIGIO, [facility] 6400 [id number] [place] 10:20:00 10:20:[address] [id number] Health [id number] 2022-03-11 2022-03-11 Outpatient TITO, [facility] [id number] [place] 11:20:00 11:20:00 [facility] 2022-01-20 2022-01-20 Office Matheus [facility] 6414 [id number] [place] 09:45:00 10:39:[address] [id number] Health 9.2.7.2.686 [id number] 2022-01-20 2022-01-20 Outpatient [facility] [id number] UT 09:45:00 09:45:00 Health 2022-01-13 2022-01-13 Telephonic AIDAMARYLIBBY YURY 6400 [id number] UT 10:40:00 10:40:[address] [id number] Health [id number] 2021-07-08 2021-07-08 Office Matheus [facility] 6414 [id number] UT 10:45:00 11:50:[address] [id number] Health [id number] 2021-03-22 2021-03-22 Clinical 1.2.840.1 [id number] [facility] 11:35:00 12:30:[address] 3.430.2.7 Hospit a .3.118130 l .8 2021-03-22 2021-03-22 Travel 1.2.840.1 [id number] [facility] 00:00:00 00:00:[id number] 3.430.2.7 0.2.7.3.698 Ho spita .3.053092 084.8 l .8 2021-03-18 2021-03-18 Office YURY Juares [id number] [place] 10:30:51 11:24:12 Visit Penelope TRAUMA 350.1.13.58 Health CLINIC [id number] 2021-03-16 2021-03-16 Travel 1.2.840.1 [id number] [id number] [facility] 00:00:00 00:00:[address] 3.430.2.7 0.2.7.3.698 Ho spita .3.411619 084.8 l .8 2021-01-21 2021-01-21 Office YURY Juares [id number] [place] 10:58:49 12:04:49 Visit Penelope TRAUMA [id number] [facility] CLINIC [id number] 2020-12-22 2020-12-29 Inpatient E ANNA [facility] MED [id number] [facility] 12:24:00 20:00:00 [facility] 2020-08-31 2020-08-31 Outpatient JAILYN [facility] [id number] [place] 00:00:00 00:00:00 BEREKET [address] 2020-08-10 2020-08-10 Outpatient [facility] [id number] [place] 00:00:00 00:00:[address] 2020-03-25 2020-03-25 Outpatient Jennifer FLOR [facility] [id number] [place] 00:00:00 00:00:[address] Results This patient has no known results.
[2023-01-10 17:04] VITALS: BMI 27.7
[2023-01-10] MEDS ORDERED: SODIUM CHLORIDE 0.9% 10ML INJ IV PRN (17:30)
[2023-01-10] MEDS: NA CHLORIDE 0.9% 1,000 ML IV SCH (18:14)
[2023-01-10] MEDS ORDERED: Levofloxacin 750mg IV 750 MG/150 ML BAG IV SCH (19:00)
--- NOTE | 2023-01-10 19:56 | RAD REPORT ---
EXAM DESCRIPTION: US - Renal Ultrasound-Complete - 01/10/2023 7:45 pm CLINICAL HISTORY: grabiel COMPARISON: Renal Ultrasound-Complete dated 03/10/2022 TECHNIQUE: Sonographic grayscale and color flow images of the kidneys and bladder were obtained. FINDINGS: Both kidneys are normal in size, shape and echotexture. Echogenic mildly thinned cortex bi laterally. The right kidney measures 8.8 cm in length. No hydronephrosis, focal mass or perinephric fluid. The left kidney measures 7.8 cm in length. No hydronephrosis, focal mass or perinephric fluid. No echogenic calculi. The urinary bladder is incompletely distended limiting evaluation. IMPRESSION: Echogenic renal cortex bilaterally suggesting medical renal disease. Bladder is decompressed limiting evaluation.
[2023-01-10 21:00] LABS: Hematocrit 37.5 % (36.0-45.0); Lymphocytes % 14.5 % (15.3-44.8); MCV 102.3 fL (80-100); MPV 9.8 fL (7.6-11.3); Platelets 130 thou/uL (152-406); RBC Red Blood Cell Count 3.67 M/uL (3.86-4.86)
[2023-01-10 21:44] LABS: Uric Acid 13.1 mg/dL (2.6-6.0)
[2023-01-10 21:52] LABS: Potassium 4.6 mEq/L (3.5-5.1)
[2023-01-10] MEDS ORDERED: cloNIDine HCL 0.1 MG TAB PO PRN (22:11)
[2023-01-10] MEDS ORDERED: carvediloL 25 MG TAB PO SCH (22:12)
[2023-01-10] MEDS: TEMAZEPAM 15 MG CAP PO PRN (22:31)
[2023-01-11 03:56] LABS: Albumin 2.6 g/dL (3.4-5.0); Magnesium 1.8 mg/dL (1.6-2.4); Phosphorus 3.9 mg/dL (2.5-4.9)
[2023-01-11] MEDS: LEVOTHYROXINE SOD 0.075 MG TAB PO SCH (05:27)
[2023-01-11 08:26] LABS: Specific Gravity 1.012 (1.005-1.030); Urine Bacteria <20 /HPF (<20); Urine Bilirubin NEGATIVE (Negative); Urine Blood Negative (Negative); Urine Clarity Turbid (Clear); Urine Color Colorless (Yellow); Urine Glucose NEGATIVE (Negative); Urine Mucus Slight /HPF (None Seen); Urine Protein TRACE (Negative); Urine RBC <5 /HPF (None Seen); Urine Urobilinogen Normal (Normal)
[2023-01-11 09:31] LABS: UR PROTEIN 24.4 mg/dL (<11.9); Urine Protein/Creatinine Ratio 0.47 ratio (<0.15)
[2023-01-11] MEDS: carvediloL 25 MG TAB PO SCH ×2 (10:29→21:51)
[2023-01-11] MEDS: PANTOPRAZOLE 40 MG INJ IVP SCH (10:29)
[2023-01-11] MEDS: NA CHLORIDE 0.9% 1,000 ML IV SCH ×2 (10:30→22:02)
[2023-01-11] MEDS ORDERED: FUROSEMIDE 20 MG TABLET PO SCH (15:00)
[2023-01-11] MEDS: SODIUM BICARB 325 MG TAB PO SCH (21:51)
[2023-01-11] MEDS ORDERED: carvediloL 25 MG TAB PO SCH (22:12)
--- NOTE | 2023-01-11 22:27 | CON ---
Date of Consultation: 01/11/2023 Reason For Consultation: Elevated BUN and creatinine. History Of Present Illness: This is an 82-year-old female with significant past medical history of h ypertension, hyperlipidemia, arthritis, colon cancer, and vitamin D deficiency. The patient had ronni t cell arteritis, confirmed with biopsy, placed on prednisone by cp bleacher operator in [place]. The pat ienolvia had chronic kidney disease, a normal-sized kidney 10.1/10.3, secondary to hypertension nephroscl erosis/IRENE secondary to Celebrex use. The patient came to the office yesterday feeling weak. Her ki dney function gradually been declining. Upon arrival to the office yesterday, her creatinine was 2.6 with GFR of 17. Previous evaluation back in July, her creatinine was 1.8 with GFR of 27. The jimi ent stopped her Celebrex. The patient was seen by Rheumatology, was started on immunotherapy with Ac temra 1 month ago. The patient denied any fever or any chills. The patient was directed to the hosp ital for possible needing kidney biopsy and also found to have UTI with Klebsiella pneumoniae, to sta rt on antibiotic. During the hospitalization, we started her on antibiotic. We started her on the L asix. Kidney function started improving. Past Medical History: Include, 1.Giant cell arteritis. 2.Hypertension. 3.Hyperlipidemia. 4.Chronic kidney disease secondary to IRENE secondary to hypertension nephrosclerosis. Family History: Positive for hypertension. Social History: Denied smoking. Denied drinking. Denied drugs abuse. Home Medications: Include, 1.Carvedilol. 2.Omeprazole. 3.Xarelto has been stopped. 4.Levothyroxine. 5.Allopurinol. 6.Lasix 20. Surgical History: Include arterial temporal biopsy. Review of Systems: Head and Neck: No red eye. No ear pain. GI: No nausea. No vomiting. : No polyuria. Has dysuria. Script Writer: No vaginal discharge. Respiratory: No shortness of breath. Cardiovascular: No chest pain. Endocrine: No polydipsia. Skin: No rash. Neuro: Has neuropathy. Musculoskeletal: Generalized fatigue. Physical Examination: Vital Signs: Blood pressure was 127/62, pulse of 103. Chest: Clear to auscultation. Heart: S1, S2. Systolic murmur. Abdomen: Soft, nontender. Extremities: +1 edema. Venous stasis change bilateral. Neurologic: Alert. No focality. Laboratory Data: Hemoglobin 12.1. Yesterday, sodium 140, potassium 4.6, bicarb 19, BUN 49, creatini ne 2.3, GFR 20, uric acid 13.1, calcium 8.1. Today, sodium 142, potassium 4, bicarb 18, BUN 48, crea tinine 1.8, calcium of 8, albumin 2.7. Current Medications: The patient on Levaquin 750 every other day, clonidine, carvedilol 25 b.i.d., t emazepam, Lasix, levothyroxine, and IV fluid at 75 per hour. Assessment And Plan: 1.Acute kidney injury on chronic kidney disease. Given the history of temporal arteritis to rule ou t any autoimmune disease, we will continue IV hydration. We will continue antibiotic. If kidney fun ction continue to improve, I doubt to be autoimmune disease. We will monitor. If the kidney functio n did not improve at that time, we will proceed with kidney biopsy for the time being. We will treat the urinary tract infection and we will hold on any anticoagulation and we will follow up. Next, ho ld Lasix. 2.Hypertension, controlled, optimal. Continue current medication. Keep holding Lasix. Continue IV fluids. 3.Urinary tract infection secondary to Klebsiella pneumoniae. Continue current antibiotic depending on the sensitivity. We will follow up. 4.Temporal arteritis, being on the prednisone. We will request the record from the Rheumatology. W e will discuss with Rheumatology, Dr. Rodriguez at [place], and we will follow up. 5.Acidosis. We will start the patient on sodium bicarb. 6.Edema secondary to venous stasis with the presence of acute kidney injury. Hold Lasix. Time spent examining the patient [id number], reviewing data, lab, and Radiology placing order more than 75 minutes. LEIDA/TATI Voice ID: [id number] Report ID: [id number]
[2023-01-12 02:57] LABS: Albumin 2.6 g/dL (3.4-5.0); Magnesium 1.7 mg/dL (1.6-2.4); Phosphorus 4.1 mg/dL (2.5-4.9); Potassium 3.7 mEq/L (3.5-5.1); Uric Acid 11.3 mg/dL (2.6-6.0)
[2023-01-12] MEDS: LEVOTHYROXINE SOD 0.075 MG TAB PO SCH (05:54)
[2023-01-12 08:25] LABS: Rheumatoid Factor NEG (NEG)
[2023-01-12] MEDS: SODIUM BICARB 325 MG TAB PO SCH ×2 (08:59→21:54)
[2023-01-12] MEDS ORDERED: LEVOTHYROXINE SOD 0.075 MG TAB PO SCH (09:00)
[2023-01-12] MEDS: PANTOPRAZOLE 40 MG INJ IVP SCH (09:00)
[2023-01-12] MEDS ORDERED: HOME MED 1 EA UNK (Omeprazole [Prilosec] 40 MG Capsule.Dr) PO SCH (09:00)
[2023-01-12] MEDS: carvediloL 25 MG TAB PO SCH ×2 (09:00→21:53)
[2023-01-12] MEDS: VENLAFAXINE HCL XR 75 MG CAP PO SCH (09:00)
[2023-01-12 10:39] VITALS: O2SAT 100
[2023-01-12] MEDS: NA CHLORIDE 0.9% 1,000 ML IV SCH (10:53)
--- NOTE | 2023-01-12 11:06 | PN ---
Date of Progress Note: 01/11/2023 The patient states she feels slightly better today. Her creatinine has dropped on hydration, therefo re I gave her a dose of Lasix as she seems to be getting some peripheral edema as well, probably seco ndary to her metabolic status. Discussion was with the family as far as the possibility of renal bio psy depending on her responsiveness to the IV antibiotics. Vital signs are stable. The patient is o rientated. Continues to be followed by Nephrology. HR/MODL Voice ID: [id number] Report ID: [id number]
--- NOTE | 2023-01-12 13:03 | PN ---
Date of Progress Note: 01/12/2023 Subjective: The patient was admitted with acute kidney injury, questionable autoimmune disease. The patient known to have giant cell arteritis. The patient was started on IV hydration. Kidney functi on has been improved. Serology is still pending, but negative. Physical Examination: Vital Signs: Blood pressure 137/77, pulse of 86, afebrile. Chest: Clear to auscultation. Heart: S1, S2. Regular. Abdomen: Soft, nontender. Extremity: Trace edema. Venous stasis change bilateral. Neurologic: Alert. No focality. Laboratory Data: Hemoglobin 12.1. Sodium 146, potassium 3.7, bicarb 19, BUN 38, creatinine 1.8, GFR 27, uric acid 11.3, calcium 7.2, phosphorus 4.1, magnesium 1.7, albumin 2.6. Corrected calcium is 8 .4. Current Medications: The patient on its include; 1.Levaquin. 2.Carvedilol 25 b.i.d. 3.Clonidine p.r.n. 4.Restoril. 5.Sodium bicarb. 6.Pantoprazole. 7.IV fluid. Assessment And Plan: 1.Acute kidney injury secondary to prerenal/toxic ATN secondary to urinary tract infection, on the r ecovery, looked to me normal volume. I am going to continue to hold the diuresis, discontinue IV flu id. I doubt to be autoimmune disease. Given the improvement in the kidney function on IV fluid, I a m going to discontinue IV fluid and we will monitor. 2.Acidosis secondary to renal failure. Continue sodium bicarb. 3.Urinary tract infection secondary to Klebsiella pneumoniae. Continue Levaquin. We will switch to oral. 4.Edema secondary to pulmonary hypertension/venous stasis changes. The patient do not have any resp iratory symptoms. I am going to keep holding the Lasix for the time being and we will follow up. Th e patient cleared from the Renal standpoint for discharge planning. LEIDA/TATI Voice ID: [id number] Report ID: [id number]
[2023-01-12] MEDS ORDERED: levoFLOXacin 750 MG TAB PO SCH (17:00)
[2023-01-12] MEDS ORDERED: Levofloxacin 750mg IV 750 MG/150 ML BAG IV SCH (18:00)
[2023-01-12] MEDS ORDERED: NA CHLORIDE 0.9% 1,000 ML IV SCH (18:00)
--- NOTE | 2023-01-12 20:54 | PN ---
Date of Progress Note: 01/12/2023 Patient states she still feels weak, but other than that, she feels she is getting somewhat better. This is monitored by her improvement and the blood work specially the creatinine and urinary tract sy mptoms are also normal. However, clinically she is still little bit dehydrated. We will continue wi IV antibiotics and IV fluids tonight and probably discharge in a.m. Has no need at this stage for biopsy and discussion will be held with the harness worker as far as her infusion of steroids are co ncerned. HR/MODL Voice ID: [id number] Report ID: [id number]
[2023-01-12] MEDS: TEMAZEPAM 15 MG CAP PO PRN (21:58)
[2023-01-12] MEDS ORDERED: predniSONE 10 MG TAB PO ONE (23:10)
[2023-01-13 03:10] LABS: Albumin 2.6 g/dL (3.4-5.0); Magnesium 1.6 mg/dL (1.6-2.4); Phosphorus 2.6 mg/dL (2.5-4.9)
[2023-01-13] MEDS: LEVOTHYROXINE SOD 0.075 MG TAB PO SCH (05:40)
[2023-01-13 08:23] LABS: Absolute Lymphocytes (CBC) 0.7 K/uL (0.7-4.9); Hematocrit 34.1 % (36.0-45.0); MPV 9.5 fL (7.6-11.3); Platelets 112 thou/uL (152-406); RBC Red Blood Cell Count 3.34 M/uL (3.86-4.86)
[2023-01-13 08:38] VITALS: BP 151/63; TEMP 97.8
[2023-01-13] MEDS ORDERED: predniSONE 10 MG TAB PO ONE (09:00)
[2023-01-13] MEDS: PANTOPRAZOLE 40 MG INJ IVP SCH (09:22)
[2023-01-13] MEDS: VENLAFAXINE HCL XR 75 MG CAP PO SCH (09:22)
[2023-01-13] MEDS: carvediloL 25 MG TAB PO SCH (09:23)
[2023-01-13] MEDS: SODIUM BICARB 325 MG TAB PO SCH (09:23)
--- NOTE | 2023-01-13 15:45 | DS ---
Date of Discharge: 01/13/2023 Hospital Course: Patient is feeling somewhat better today. This coincides with her chemistries, whi ch are basically normal. She was given some steroids as well as she was on tapering doses for her ar teritis. She could be discharged on Levaquin 750 mg for her UTI, to follow up with me next week. Som ferreira will be discharged in good condition on his medications, Levaquin tapering steroid doses and her us ual cardiovascular medications. EKG did show some PACs. However, there was no significant arrhythm ia warrant going back on her Eliquis, which has been held for the last couple of months by cardiologi . She also decided to alternate her Lasix doses of 20 mg. Final Diagnoses: Urinary tract infection; acute on chronic renal failure; posttemporal arthritis; hy pertension, controlled. During her hospital stay she was also seen by Nephrology and will be followe d up by them as well. HR/MODL Voice ID: [id number] Report ID: [id number]
[2023-01-16 14:50] LABS: Alpha-1-Globulins 0.2 g/dL (0.2-0.3); Alpha-2-Globulins 0.7 g/dL (0.5-0.9); Gamma Globulins 0.6 g/dL (0.8-1.7); INTERPRETATION Consistent with
== END 2023-01-13 11:00 | disposition home or self-care (01) | DRG 689 ==
LOC: 2ND 16:09
PROVIDERS: ADMIT Family Medicine; ATTEND Family Medicine
DX: N39.0 Urinary tract infection, site not specified (principal); N17.0 Acute kidney failure with tubular necrosis; E87.20 Acidosis, unspecified; M31.6 Other giant cell arteritis; E78.5 Hyperlipidemia, unspecified; M19.90 Unspecified osteoarthritis, unspecified site; I12.9 Hypertensive chronic kidney disease with stage 1 through stage 4 chronic kidney disease, or unspecified chronic kidney disease; N18.9 Chronic kidney disease, unspecified; E11.22 Type 2 diabetes mellitus with diabetic chronic kidney disease; I87.8 Other specified disorders of veins; I27.20 Pulmonary hypertension, unspecified; E86.0 Dehydration; B96.1 Klebsiella pneumoniae [K. pneumoniae] as the cause of diseases classified elsewhere; R60.9 Edema, unspecified; Z79.01 Long term (current) use of anticoagulants; Z79.02 Long term (current) use of antithrombotics/antiplatelets; Z79.890 Hormone replacement therapy; Z79.899 Other long term (current) drug therapy; Z85.038 Personal history of other malignant neoplasm of large intestine
CPT/HCPCS: 36415; 76770; 80048; 80069; 81001; 82550; 82570; 83520; 83735; 83970; 84156; 84165; 84550; 85025; 86021; 86038; 86160; 86225; 86430; 87086; 87088; 93005; 97116; 97161; C9113; J7030; J7512

== ENCOUNTER 2023-03-31 18:15 | Emergency (ER) | payer OTHER ==
--- OUTSIDE RECORDS SUMMARY | 2023-03-31 18:20 | XMS REPORT | Continuity of Care Document ---
:1940 Author Organization [facility] t Address [address] [place] [address] Care Team Providers Name Role Phone Samm Mesa MD Primary Care Physician KIAN MARTÍNEZ Attending Clinician Unavailable [email or web address] Attending Clinician Unavailable RONALDO MIRAMONTES Attending Clinician Unavailable Penelope Alves Attending Clinician LORE CASTILLO Attending Clinician Unavailable BEREKET GLASER Attending Clinician Unavailable Jennifer FLOR Attending Clinician Unavailable [email or web address]_S Admitting Clinician Unavailable LORE CASTILLO Admitting Clinician Unavailable Payers Payer Name Policy Type Policy Number Effective Date Expiration Date S elvia [employer] MEDICARE [id number] 2020 2021 PPO 00:00:00 00:00:00 Problems Condition Condition Condition Status Onset Resolution Last Treating Co mments Source Name Details Category Date Date Treatment Clinician Date Acquired Acquired Disease Active [facility] hypothyroi hypothyroi 01-13 He alth dism dism 00:00: 00 Acute Acute Disease Active UT posthemorr posthemorr 01-13 He alth hagic hagic 00:00: anemia anemia 00 Chronic Chronic Disease Active [facility] kidney kidney 01-13 Health disease disease 00:00: due to due to 00 hypertensi hypertensi on on Colostomy Colostomy Disease Active UT present present 01-13 Health 00:00: 00 Embolism Embolism Disease Active UT and and 01-13 Health thrombosis thrombosis 00:00: of femoral of femoral 00 vein vein Fall Fall Disease Active [facility] 18 Health 00:00: 00 Gastro-eso Gastro-eso Disease Active [...] dermatitis dermatitis 00 Increased Increased Disease Active band cell band cell 01-13 Heal count count 00:00: 00 Major Major Disease Active depression depression 01-13 He alth , single , single 00:00: episode episode 00 Malnutriti Malnutriti Disease Active U T on of on of 01-13 Health moderate moderate 00:00: degree degree 00 (Lane: (Lane: 60% to 60% to less than less than 75% of 75% of standard standard weight) weight) Primary Primary Disease Active open angle open angle 01-13 He alth [...] healing healing Backache Backache Disease Active UT 1-26 Health 00:00: 00 Hypertensi Hypertensi Disease Active U T ve ve 1-26 Health disorder disorder 00:00: 00 Hyperlipid Hyperlipid [...] Abdominal Disease Active [facility] pain pain [address] [facility] 00:00: Hospita 00 l 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 15 st with with 00:00: Hospita obstructio obstructio 00 l n and n and without without gangrene gangrene Electrolyt Electrolyt Disease Active M ethodi e and e and 6-15 st fluid fluid 00:00: Hospita disorder disorder [...] Active Itching Metho di hene ty to 6-15 st adverse 00:00: Hospita reaction 00 l s to drug Social History Social Habit Start Date Stop Date Quantity Comments Source [facility] Exposure to 2022-03-15 2022-03-25 Not sure [facility] SARS-CoV-2 (event) 00:00:00 09:13:00 Tobacco use and 2022-03-25 2022-03-25 Smokeless [facility] exposure 00:00:00 00:00:00 tobacco non-user Tobacco Comment 2022-03-25 2022-03-25 Smoking History [facility] 00:00:00 Packs/day: N. Recorded: 021 History of Social 2019-01-13 2019-01-[address] function 00:00:00 00:00:00 Hospital Alcohol intake 2018-10-15 2018-10-15 Current drinker [facility] dist 00:00:00 00:00:00 of alcohol Hospital (finding) Sex Assigned At [birth year] [facility] 00:[facility]00 Hospital Smoking Status Start Date Stop Date Source Never smoked tobacco [facility] Medications Ordered Filled Start Stop Current Ordering Indication Dosage Frequency Signature Comments Components Source Medication Medication Date Date Medication? Clinician (SIG) Name Name lidocaine 2021-05- No [id number] 10mL UT PF 03-25 Health (Xylocaine) 15:11: 15:11 1 % 19 :00 injection 10 mL bupivacaine 2021-05- No [id number] 3mL U T PF 03-25 Health (Marcaine) 15:11: 15:11 0.25 % 19 :00 injection 3 mL dexamethaso 2021-05- No [id number] 10mg U T ne (PF) 03-25 Health (Decadron) 15:11: 15:11 injection 19 :00 10 mg iohexol 2021-05- No [id number] 2mL UT (OMNIPaque) 03-25 Health 300 MG/ML 15:11: 15:11 injection 2 19 :00 mL iohexol 2021-05- No [id number] 2mL 2 mL, Once UT (OMNIPaque) 03-25 PRN Health 300 MG/ML 15:11: 15:11 Procedure, injection 2 19 :00 Starting mL on Mon03/25/22 at 1011, For 1 dose dexamethaso 2021-05- No [id number] 10mg 10 mg, UT ne (PF) 003-25 Once PRN Health (Decadron) 15:11: 15:11 Procedure, injection 19 :00 Starting 10 mg on Mon03/25/22 at 1011, For 1 dose bupivacaine 2021-05- No [id number] 3mL 3 mL, Once UT PF 03-25 PRN Health (Marcaine) 15:11: 15:11 Procedure, 0.25 % 19 :00 Starting injection 3 on Fri mL 03/25/22 at 1011, For 1 dose lidocaine 2021-05- No [id number] 10mL 10 mL, U T PF 03-25 Once PRN Health (Xylocaine) 15:11: 15:11 Procedure, 1 % 19 :00 Starting injection on Mon 10 mL 03/25/22 at 1011, For 1 dose magnesium 2021-0 Yes Q6H every 6 UT hydroxide 8-18 (six) Health (Milk of 11:11: hours. Magnesia) 35 400 MG/5ML suspension phenol 2021- Yes 1 spray UT (Chlorasept 8-18 spit out Heal ic) 1.4 % 11:11: after 15 liquid 35 seconds as needed oxyCODONE 2021-0 Yes Q6H every 6 UT (Roxicodone 8-18 (six) Health ) 5 MG 11:11: hours. immediate 35 release tablet omeprazole 0 Yes 1{tbl} QD Take 1 UT (PriLOSEC) [...] Take 1 UT (PriLOSEC) 01-[address] [facility] [address] 11:11: mouth 1 capsule 35 (one) time each day. venlafaxine 2021-0 Yes 1 (one) UT (Effexor) -18 time each Healt h 75 MG 11:11: day at the tablet 35 same time. magnesium 2022-0 Yes Q6H every 6 UT hydroxide 01-13 ([facility]) [facility] (Milk of 11:11: hours. Magnesia) 35 400 MG/5ML suspension phenol 0 Yes 1 spray UT (Chlorasept 01-[address] [facility] ic) 1.4 % 11:11: after 15 liquid 35 seconds as needed oxyCODONE 2021-0 Yes Q6H every 6 UT (Roxicodone 01-13 ([facility]) [facility] ) 5 MG 11:11: hours. immediate 35 release tablet omeprazole 0 Yes 1{tbl} QD Take 1 UT (PriLOSEC) 01-[address] [facility] [address] 11:11: mouth 1 capsule 35 (one) time each day. venlafaxine 2021-0 Yes 1 (one) UT (Effexor) 01-13 time each Healt h 75 MG 11:11: day at the tablet 35 same time. Calcium 2021-0 Yes 1{tbl} 1 tablet. UT [...] drop 1 UT (Xalatan) 01-13 (one) time [facility] 0.005 % 11:11: each day. ophthalmic 34 solution levoFLOXaci 2021-0 Yes 500mg QD Take 500 U T n 8-18 mg by Health ([facility]) 11:11: mouth 1 500 MG 34 (one) time tablet each day. levothyroxi 2022-0 Yes 1 (one) UT ne 8-18 time each Health (Synthroid, 11:11: day at the Levoxy) 75 34 same time. MCG tablet Calcium [...] U T n 8-18 mg by Health ([facility]) 11:11: mouth 1 500 MG 34 (one) time tablet each day. levothyroxi 2021-0 Yes 1 (one) UT ne 8-18 time each Health (Synthroid, 11:11: day at the Levocox north) 75 34 same time. MCG tablet Calcium [...] 11:11: each day. ophthalmic 34 solution levoFLOXaci 2022-0 Yes 500mg QD Take 500 U T n 8-18 mg by Health (Levaquin) 11:11: mouth 1 500 MG 34 (one) time tablet each day. levothyroxi 2022-0 Yes 1 (one) UT ne 8-18 time each Health (Synthroid, 11:11: day at the Levoxyl) 75 34 same time. MCG tablet acetaminoph 2022-0 Yes 500mg Take 500 U T en 8-18 mg by Health (Tylenol) 11:11: mouth 1 500 MG 33 (one) time tablet each day if needed. acetaminoph 2022-0 Yes 500mg Take 500 U T en 8-18 mg by Health (Tylenol) 11:11: mouth 1 500 MG 33 (one) time tablet each day if needed. acetaminoph 2022-0 Yes 500mg Take 500 U T en 8-18 mg by Health (Tylenol) 11:11: mouth 1 500 MG 33 (one) time tablet each day if needed. gabapentin 2021-0 2023- No [id number] 300mg Take 1 UT (Neurontin) 01-13 capsule Heal th 300 MG 00:00: 04:59 (300 mg capsule 00 :00 total) by mouth every night. gabapentin 2021-0 3- No [id number] 300mg Take 1 UT (Neurontin) 01-13 capsule Heal th 300 MG 00:00: 04:59 (300 mg capsule 00 :00 total) by mouth every night. gabapentin 2021-0 2023- No [id number] 300mg Take 1 UT (Neurontin) 01-13 capsule Heal th 300 MG 00:00: 04:59 (300 mg capsule 00 :00 total) by mouth every night. gabapentin 2021-0 Yes [id number] 300mg Take 1 UT (Neurontin) 12-29 capsule Healt h 300 MG 00:00: (300 mg capsule 00 total) by mouth every night. gabapentin 2021-0 2022- No [id number] 300mg Take 1 UT (Neurontin) 12-29 capsule Heal th 300 MG 00:00: 04:59 (300 mg capsule 00 :00 total) by mouth every night. gabapentin 2022-0 2022- No [id number] 300mg Take 1 UT (Neurontin) 8 09-03 capsule Heal th 300 MG 00:00: [...] U T MG tablet 7-22 mg by [facility] 00:00: mouth 2 00 (two) times a [...] Take 1 UT droCHLOROth 6-22 tablet by [facility] iazide 00:00: mouth 1 (Hyzaar) 00 (one) time 50-12.5 MG each day. tablet losartan-hy 2022-0 Yes 1{tbl} QD Take 1 UT droCHLOROth 6-22 tablet by [facility] iazide 00:00: mouth 1 (Hyzaar) 00 (one) time 50-12.5 MG each day. tablet losartan-hy 2022-0 Yes 1{tbl} QD Take 1 UT droCHLOROth 6-22 tablet by [facility] iazide 00:00: mouth 1 (Hyzaar) 00 (one) [...] TABLET D2) 1.25 MG 00 EVERY WEEK (39337 UT) FOR 12 capsule WEEKS ergocalcife 2022-0 Yes TAKE BY UT rol 6-18 MOUTH 1 Health (Vitamin 00:00: TABLET D2) 1.25 MG 00 EVERY WEEK (85719 UT) FOR 12 capsule WEEKS ergocalcife 2022-0 Yes TAKE BY UT rol 6-18 MOUTH 1 Health (Vitamin 00:00: TABLET D2) 1.25 MG 00 EVERY WEEK (54154 UT) FOR 12 capsule WEEKS gabapentin 2021-0 2022- No [id number] 300mg Take 1 UT (Neurontin) 08-18- capsule Heal th 300 MG 00:00: 04:59 (300 mg capsule 00 :00 total) by mouth every night. gabapentin 2021-0 2022- No [id number] 300mg Take 1 UT (Neurontin) 08-18- capsule Heal th 300 MG 00:00: 04:59 (300 mg capsule 00 :00 total) by mouth every night. gabapentin 2021-0 2022- No [id number] 300mg Take 1 UT (Neurontin) 08-18-24 capsule Heal th 300 MG 00:00: 04:59 (300 mg capsule 00 :00 total) by mouth every night. Hazel 2021-0 Yes 1[drp] Administer UT 0.01 % 3-21 1 drop Health ophthalmic 00:00: into both solution 00 eyes every night. Hazel 2021-0 Yes 1[drp] Administer UT 0.01 % 3-21 1 drop Health ophthalmic 00:00: into both solution 00 eyes every night. Hazel Yes 1[drp] Administer UT 0.01 % 3-21 [...] 2 TIMES A l solution DAY bimatoprost 2019-0 Yes 1[drp] QD Administer Method[facility] [...] l triamcinolo 2019-0 Yes APPLY TO Me hiwot lopez 4-[address] (KENALOG) 00:00: AREA TWICE Ho spita 0.5 % cream 00 A DAY l triamcinolo 2019-0 Yes APPLY TO Me hiwot lopez 4-[address] (KENALOG) 00:00: AREA TWICE Ho spita 0.5 % cream 00 A DAY l triamcinolo 2019-0 Yes APPLY TO Me mi ne 4-[address] (KENALOG) 00:00: AREA TWICE Ho spita 0.5 % cream 00 A DAY l triamcinolo 2019-0 Yes APPLY TO Me hiwot lopez 4-[address] (KENALOG) 00:00: AREA TWICE Ho spita 0.5 % cream 00 A DAY l BONIVA 150 2019-0 Yes TAKE BY Meth [...] mouth st 00:00: daily. Hospita l omeprazole Yes QD Take by Meth marie (PriLOSEC) 3-[address] 40 MG 00:00: daily. Hospita capsule OLIC Yes 10mg QD Take 10 mg [facility] mg tablet 3-[address] 00:00: daily. Hospita l omeprazole 2018- Yes QD Take by Meth marie (PriLOSEC) 3-[address] 40 MG 00:00: daily. Hospita capsule OLIC Yes 10mg QD Take 10 mg Methodi [...] 00 daily. l mcg tablet Immunizations Ordered Filled Immunization Date Status Comments Sour e Immunization Name Name Thucy COVID-19 2021-03-22 Completed [facility] VACCINATION 00:00:00 [facility] COVID-19 2021-03-22 Completed [facility] MRNA VACCINATION 00:00:00 [facility] COVID-19 2021-03-22 Completed [facility] MRNA VACCINATION 00:00:00 [facility] LumaqcoID-19 2021-03-22 Completed [facility] MRNA VACCINATION 00:00:00 [facility] PFIZER COVID-19 2020-08-31 Completed [facility] MRNA VACCINATION 00:00:00 [facility] PFIZER COVID-19 2020-08-31 Completed [facility] MRNA VACCINATION 00:00:00 [facility] PFIZER COVID-19 2020-08-31 Completed [facility] MRNA VACCINATION 00:00:00 [facility] PFIZER COVID-19 2020-08-31 Completed [facility] MRNA VACCINATION 00:00:00 [facility] PFIZER COVID-19 2020-08-10 Completed [facility] MRNA VACCINATION 00:00:00 [facility] PFIZER COVID-19 2020-08-10 Completed [facility] MRNA VACCINATION 00:00:00 [facility] PFIZER COVID-19 2020-08-10 Completed [facility] MRNA VACCINATION 00:00:00 [facility] PFIZER COVID-19 2020-08-10 Completed [facility]RNA VACCINATION 00:00:00 [facility] Influenza, 2020-03-10 Completed [facility] injectable, 00:00:00 quadrivalent (afluria, fluzone) Influenza, 2020-03-10 Completed [facility] injectable, 00:00:00 quadrivalent (afluria, fluzone) Influenza, 2020-03-10 Completed [facility] injectable, 00:00:00 quadrivalent (afluria, fluzone) PFIZER COVID-19 Unknown Completed [facility] MRNA VACCINATION [facility] PFIZER COVID-19 Unknown Completed [facility] MRNA VACCINATION [facility] PFIZER COVID-19 Unknown Completed [facility] MRNA VACCINATION [facility] Vital Signs Vital Name Observation Time Observation Value Comments Source Systolic blood pressure 2022-03-25 15:06:00 138 mm[Hg] [facility] Diastolic blood pressure 2022-03-25 15:06:00 72 mm[Hg] [facility] Heart rate 2022-03-25 15:06:00 72 /min [place] [facility] Oxygen saturation in 2022-03-25 15:06:00 99 /min [facility] Arterial blood by Pulse oximetry Procedures Procedure Date / Time Performed Performing Clinician Sourc e NC LUMBAR TRANSFORAMINAL ANTWAN; 2022-03-25 15:20:00 Pricilla Miramontes [facility] 1ST LEVEL NC LUMBAR TRANSFORAMINAL ANTWAN; 2022-03-25 15:20:00 Pricilla Miramontes [facility] EACH ADDL Plan of Care Planned Activity Planned Date Details Comments Source Future Scheduled 2023-03-22 65+ PNEUMOCOCCAL [facility] Test 21:52:50 VACCINE (1 - PCV) [code = 65+ PNEUMOCOCCAL VACCINE (1 - PCV)] Future Scheduled 2023-03-22 SHINGLES VACCINES (1 Met [facility] Hospital Test 21:52:50 of 2) [code = SHINGLES VACCINES (1 of 2)] Future Scheduled 2023-03-22 COVID-19 VACCINE (4 - [facility] Test 21:52:50 season) [code = COVID-19 VACCINE (4 - season)] Future Scheduled 2023-03-22 [facility] 21:52:50 [code = INFLUENZA VACCINE (#1)] Future Scheduled 2022-12-29 65+ PNEUMOCOCCAL [facility] Test 02:08:46 VACCINE (1 - PCV) [code = 65+ PNEUMOCOCCAL VACCINE (1 - PCV)] Future Scheduled 2022-12-29 SHINGLES VACCINES (1 Met [facility] Hospital Test 02:08:46 of 2) [code = SHINGLES VACCINES (1 of 2)] Future Scheduled 2022-12-29 COVID-19 VACCINE (4 - [facility] Test 02:08:46 Pfizer series) [code = COVID-19 VACCINE (4 - Pfizer series)] Future Scheduled 2022-12-29 INFLUENZA VACCINE Method [facility] Hospital Test 02:08:46 [code = INFLUENZA VACCINE] Future Scheduled 2022-11-08 65+ PNEUMOCOCCAL [facility] Test 08:14:50 VACCINE (1 - PCV) [code = 65+ PNEUMOCOCCAL VACCINE (1 - PCV)] Future Scheduled 2022-11-08 SHINGLES VACCINES (1 Met [facility] Hospital Test 08:14:50 of 2) [code = SHINGLES VACCINES (1 of 2)] Future Scheduled 2022-11-08 COVID-19 VACCINE (4 - [facility] Test 08:14:50 Pfizer series) [code = COVID-19 VACCINE (4 - Pfizer series)] Future Scheduled 2022-11-08 INFLUENZA VACCINE Method [facility] Hospital Test 08:14:50 [code = INFLUENZA VACCINE] Future Scheduled 2022-05-12 65+ PNEUMOCOCCAL [facility] Test 04:02:51 VACCINE (1 - PCV) [code = 65+ PNEUMOCOCCAL VACCINE (1 - PCV)] Future Scheduled 2022-05-12 SHINGLES VACCINES (1 Met [facility] Test 04:02:51 of 2) [code = SHINGLES VACCINES (1 of 2)] Future Scheduled 2022-05-12 COVID-19 VACCINE (4 - Me [facility] Hospital Test 04:02:51 Booster for Pfizer series) [code = COVID-19 VACCINE (4 - Booster for Pfizer series)] Future Scheduled 2022-05-12 INFLUENZA VACCINE Method [facility] Hospital Test 04:02:51 [code = INFLUENZA VACCINE] Future Scheduled 2022-02-17 HEPATITIS B VACCINES Met [facility] Test 07:45:52 (1 of 3 - 3-dose series) [code = HEPATITIS B VACCINES (1 of 3 - 3-dose series)] Future Scheduled 2022-02-17 65+ [facility]AL [facility] 07:45:52 VACCINE (1 - PCV) [code = 65+ PNEUMOCOCCAL VACCINE (1 - PCV)] Future Scheduled 2022-02-17 SHINGLES VACCINES (1 Met [facility] Test 07:45:52 of 2) [code = SHINGLES VACCINES (1 of 2)] Future Scheduled 2022-02-17 COVID-19 VACCINE (4 - Me [facility] Hospital Test 07:45:52 Booster for Pfizer series) [code = COVID-19 VACCINE (4 - Booster for Pfizer series)] Future Scheduled 2022-02-17 INFLUENZA VACCINE Method [facility] Test 07:45:52 [code = INFLUENZA VACCINE] Encounters Start End Encounter Admission Attending Care Care Encounter Source Date/Time Date/Time Type Type Clinicians Facility Department ID 2022-07-18 Outpatient [facility] [id number] [place] 13:36:42 [id number] [facility] 2022-04-29 Outpatient [facility] [id number] UT 15:41:34 [id number] [facility] 2022-03-25 Outpatient [facility] [id number] UT 09:11:37 [id number] [facility] 2021-07-08 Outpatient MAURICIO, [facility] [id number] UT 11:49:57 KIAN [facility] 2021-07-02 Outpatient [facility] [id number] UT 13:37:21 Health 2021-06-11 Outpatient [facility] [id number] UT 09:01:29 [facility] 2021-03-18 Outpatient MARTÍNEZ, [facility] [id number] [place] 11:23:25 [facility] 2021-03-12 Outpatient [facility] [id number] UT 13:38:52 Health 2021-01-23 Outpatient MARTÍNEZ, [facility] [id number] [place] 01:03:46 [facility] 2021-01-22 Outpatient [facility] [id number] [place] 13:52:59 Health 2021-01-21 Outpatient MARTÍNEZ, [facility] [id number] [place] 11:57:04 [facility] 2021-01-15 Outpatient [facility] [id number] [place] 10:31:42 Health 2023-03-26 2023-03-26 Outpatient [email or web address] PRIV PRIV [id number] [facility] 00:00:00 00:00:00 diyala_S [id number] [facility] 2022-07-28 2022-07-28 Outpatient MAURICIO, [facility] [id number] [place] 10:00:00 10:00:00 [facility] 2022-07-28 2022-07-28 Outpatient [facility] [id number] [place] 10:00:00 10:00:00 [facility] 2022-05-13 2022-05-13 Outpatient NASHELIGIO, [facility] [id number] [place] 09:00:00 09:00:00 [facility] 2022-05-13 2022-05-13 Outpatient [facility] [id number] [place] 08:20:00 08:20:00 [facility] 2022-04-26 2022-04-26 Outpatient NASHELIGIO, [facility] [id number] [place] 10:40:00 10:40:00 [facility] 2022-04-07 2022-04-07 Outpatient NASHELIGIO, [facility] [id number] [place] 08:40:00 08:40:00 [facility] 2022-03-25 2022-03-25 Procedure NASHELIGIO [facility] [id number] [place] 10:20:00 10:20:00 Visit RONALDO VANEGAS [id number] [facility] [id number] 2022-03-11 2022-03-11 Outpatient TITO [facility] [id number] [place] 11:20:00 11:20:00 RONALDO Health 2022-01-20 2022-01-20 Office YURY Martínez 6414 [id number] [place] 09:45:00 10:39:[address] [id number] Health [id number] 2022-01-20 2022-01-20 Outpatient [facility] [id number] [place] 09:45:00 09:45:00 Health 2022-01-13 2022-01-13 Telephonic NASHTELMAAVERYYURY 6400 [id number] [place] 10:40:00 10:40:00 Encounter RONALDO BARBA [id number] Health [id number] 2021-07-08 2021-07-08 Office YURY Martínez 6414 [id number] [place] 10:45:00 11:50:[address] [id number] Health [id number] 2021-03-22 2021-03-22 Clinical 1.2.840.1 [id number] Methodi 11:35:00 12:30:[id number] 3.430.2.7 Hospit a .[id number] l .8 2021-03-22 2021-03-22 Travel 1.2.840.1 [id number] [id number] [facility]i 00:00:00 00:00:[id number] 3.430.2.7 0.2.7.3.698 Ho spita .[id number] 084.8 l .8 2021-03-18 2021-03-18 Office YURY Juares [id number] [place] 10:30:51 11:24:12 Visit Penelope TRAUMA [id number] Health CLINIC [id number] [id number] 2021-03-16 2021-03-16 Travel 1.2.840.1 [id number] [id number] [facility]i 00:00:00 00:00:[address] 3.430.2.7 0.2.7.3.698 Ho spita .[id number] 084.8 l .8 2021-01-21 2021-01-21 Office Mor, YURY [id number] [place] 10:58:49 12:04:49 Visit Penelope TRAUMA [id number] Health CLINIC [id number] 2020-12-22 2020-12-29 Inpatient E ANNA, [facility] [id number] [facility] 12:24:00 20:00:00 [facility] 2020-08-31 2020-08-31 Outpatient JAILYN [facility] [id number] [place] 00:00:00 00:00:00 BEREKET [address] 2020-08-10 2020-08-10 Outpatient [facility] [id number] [place] 00:00:00 00:00:[address] 2020-03-25 2020-03-25 Outpatient Jennifer FLOR [facility] [id number] [place] 00:00:00 00:00:[address] Results This patient has no known results.
--- NOTE | 2023-03-31 20:23 | RAD REPORT ---
EXAM DESCRIPTION: Miles Single View03/31/2023 8:03 pm CLINICAL HISTORY: Cough COMPARISON: 2021 FINDINGS: The lungs appear clear of acute infiltrate. The heart is normal size IMPRESSION: No acute abnormalities displayed
[2023-03-31 20:49] LABS: Absolute Lymphocytes (CBC) 1.4 K/uL (0.7-4.9); Lymphocytes % 23.4 % (15.3-44.8); MCV 97.5 fL (80-100); MPV 9.4 fL (7.6-11.3); Platelets 206 thou/uL (152-406); RBC Red Blood Cell Count 3.69 M/uL (3.86-4.86)
[2023-03-31 20:50] LABS: Protime INR 1.02
[2023-03-31 20:57] LABS: Albumin 3.4 g/dL (3.4-5.0); Bilirubin Direct 0.2 mg/dL (0-0.2); Bilirubin Indirect, Calculated 0.2 mg/dL (0.2-0.8); Bilirubin Total 0.4 mg/dL (0.2-1.0); Potassium 4.9 mEq/L (3.5-5.1); Protein, Total 7.2 g/dL (6.4-8.2); Troponin High Sensitivity 25.1 pg/mL (<58.9)
--- NOTE | 2023-03-31 21:25 | ER ---
Nurse's Notes [facility] Name: Ambar Jay Age: 82 yrs Sex: Female : 1940 Arrival Date: 03/31/2023 Time: 18:15 Bed 16 Private MD: Diagnosis: Dizziness and giddiness;Headache Presentation: 03/31 18:23 Chief complaint: Patient states: dizziness, nausea, and generalized weakness onset last cm10 night. Coronavirus screen: Vaccine status: Patient reports being unvaccinated. Client denies travel out of the [place] in the last 14 days. Ebola Screen: Patient denies travel to an Ebola-affected area in the 21 days before illness onset. No symptoms or risks identified at this time. Initial Sepsis Screen: Does the patient meet any 2 criteria? No. Patient's initial sepsis screen is negative. Does the patient have a suspected source of infection? No. Patient's initial sepsis screen is negative. Risk Assessment: Do you want to hurt yourself or someone else? Patient reports no desire to harm self or others. Onset of symptoms was March 31, 2023. 18:23 Method Of Arrival: Wheelchair cm10 18:23 Acuity: ANTWAN 3 cm10 Triage Assessment: 18:25 General: Appears in no apparent distress. comfortable, Behavior is calm, cooperative. cm10 Historical: - Allergies: 18:25 Darvon; cm10 - PMHx: 18:25 colon cancer; Depression; Hypothyroidism; GERD; Hypertension; Glaucoma; cm10 - PSHx: 18:25 R hip SX; cm10 - Immunization history:: Adult Immunizations unknown. - Social history:: Smoking status: Patient denies any tobacco usage or history of. - Family history:: not pertinent. Screenin:00 [facility] ED Fall Risk Assessment (Adult) History of falling in the last 3 months, vc1 including since admission No falls in past 3 months (0 pts) Confusion or Disorientation No (0 pts) Intoxicated or Sedated No (0 pts) Impaired Gait Yes (1 pt) Mobility Assist Device Used No (0 pt) Altered Elimination No (0 pt) Score/Fall Risk Level 0 - 2 = Low Risk Oriented to surroundings, Maintained a safe environment, Educated pt \T\ family on fall prevention, incl call for assistance when getting out of bed. Abuse screen: Denies threats or abuse. Nutritional screening: No deficits noted. Tuberculosis screening: No symptoms or risk factors identified. Assessment: 20:30 General: Appears in no apparent distress. uncomfortable, ill, Behavior is calm, vc1 cooperative, appropriate for age. Pain: Denies pain. Neuro: Level of Consciousness is awake, alert, obeys commands, Oriented to person, place, time, situation, Appropriate for age Reports dizziness, headache. Cardiovascular: No deficits noted. Respiratory: Airway is patent Respiratory effort is even, unlabored, Respiratory pattern is regular, symmetrical. GI: No deficits noted. No signs and/or symptoms were reported involving the gastrointestinal system. : No deficits noted. No signs and/or symptoms were reported regarding the genitourinary system. EENT: No deficits noted. No signs and/or symptoms were reported regarding the EENT system. Derm: No deficits noted. No signs and/or symptoms reported regarding the dermatologic system. 21:30 Reassessment: Patient and/or family updated on plan of care and expected duration. Pain vc1 level reassessed. Patient is alert, oriented x 3, equal unlabored respirations, skin warm/dry/pink. Patient denies pain at this time. Patient states feeling better. Patient states symptoms have improved. Vital Signs: 18:23 Pulse 88; Resp 18; Temp 97.1(TE); Pulse Ox 99% ; Weight 64.41 kg; Height 5 ft. 0 in. ; cm10 18:25 BP 159 / 82; cm10 21:40 BP 170 / 76; Pulse 82; Resp 17; Pulse Ox 98% ; Pain 0/10; vc1 18:23 Body Mass Index 27.73 (64.41 kg, 152.4 cm) cm10 21:40 Pain Scale: Adult vc1 ED Course: 18:23 Patient arrived in ED. cm10 18:25 Triage completed. cm10 18:26 Lizandro Walls MD is Attending Physician. cp3 18:26 Arm band placed on Patient placed in waiting room. cm10 19:57 Lizandro Walls MD is Attending Physician. cp3 20:05 XRAY Chest (1 view) In Process Unspecified. EDMS 20:18 Estephania Owens, HÉCTOR is Primary Nurse. km8 20:30 Patient has correct armband on for positive identification. Bed in low position. Call vc1 light in reach. 20:32 Basic Metabolic Panel Sent. vc1 20:32 CBC with Diff Sent. vc1 20:32 LFT's Sent. vc1 20:32 NT PRO-BNP Sent. vc1 20:32 PT-INR Sent. vc1 20:32 Troponin HS Sent. vc1 20:33 Inserted saline lock: 20 gauge in left antecubital area, using aseptic technique. Blood vc1 collected. 21:41 No provider procedures requiring assistance completed. IV discontinued, intact, vc1 bleeding controlled, No redness/swelling at site. Pressure dressing applied. 21:42 Provided Education on: light bland diet and eat with pain medication. vc1 Administered Medications: 21:11 CANCELLED (wrong order): ns0.45 % 1000 ml IV at 125 ml/hr continuous cp3 21:43 Not Given (Patient Refused): ns 0.9% 1000 ml IV at 1000 ml once vc1 Medication: 21:34 VIS not applicable for this client. vc1 Outcome: 21:24 Discharge ordered by . cp3 21:42 Discharged to home via wheelchair, with family, vc1 21:42 Condition: good 21:42 Discharge instructions given to patient, family, Instructed on discharge instructions, follow up and referral plans. medication usage, Demonstrated understanding of instructions, follow-up care, medications, Prescriptions given X 2, 21:51 Patient left the ED. vc1 Signatures: Dispatcher [employer] Lizandro Lam MD MD cp3 Jocelyn Butler RN RN vc1 Ainsley Ortega, RN RN cm10 Estephania Owens RN RN [id number]
--- NOTE | 2023-03-31 21:25 | EDPHYS ---
Physician Documentation [facility] Name: Ambar Jay Age: 82 yrs Sex: Female : 1940 Arrival Date: 03/31/2023 Time: 18:15 Bed 16 Private MD: ED Physician Lizandro Walls HPI: 03/31 21:38 This 82 yrs old Female presents to ER via Wheelchair with complaints of cp3 Dizziness, Nausea, General Weakness. 21:38 The patient presents with dizziness. Onset: The symptoms/episode began/occurred cp3 acutely. Context: occurred at home, occurred while the patient was. Associated signs and symptoms: Pertinent positives: nausea, vomiting. Severity of symptoms: in the emergency department the symptoms have improved. The patient has experienced a previous episode. Historical: - Allergies: 18:25 Darvon; cm10 - PMHx: 18:25 colon cancer; Depression; Hypothyroidism; GERD; Hypertension; Glaucoma; cm10 - PSHx: 18:25 R hip SX; cm10 - Immunization history:: Adult Immunizations unknown. - Social history:: Smoking status: Patient denies any tobacco usage or history of. - Family history:: not pertinent. ROS: 21:38 Constitutional: Negative for fever, chills, and weight loss, Eyes: Negative for injury, cp3 pain, redness, and discharge, ENT: Negative for injury, pain, and discharge, Neck: Negative for injury, pain, and swelling, Respiratory: Negative for shortness of breath, cough, wheezing, and pleuritic chest pain, Back: Negative for injury and pain, MS/Extremity: Negative for injury and deformity, Skin: Negative for injury, rash, and discoloration, Psych: Negative for depression, anxiety, suicide ideation, homicidal ideation, and hallucinations, Allergy/Immunology: Negative for hives, rash, and allergies, Endocrine: Negative for neck swelling, polydipsia, polyuria, polyphagia, and marked weight changes, Hematologic/Lymphatic: Negative for swollen nodes, abnormal bleeding, and unusual bruising, 21:38 Abdomen/GI: Positive for nausea and vomiting, 21:38 Neuro: Positive for dizziness, headache, Exam: 21:38 Constitutional: This is a well developed, well nourished patient who is awake, alert, cp3 and in no acute distress. Head/Face: Normocephalic, atraumatic. Eyes: Pupils equal round and reactive to light, extra-ocular motions intact. Lids and lashes normal. Conjunctiva and sclera are non-icteric and not injected. Cornea within normal limits. Periorbital areas with no swelling, redness, or edema. ENT: Nares patent. No nasal discharge, no septal abnormalities noted. Tympanic membranes are normal and external auditory canals are clear. Oropharynx with no redness, swelling, or masses, exudates, or evidence of obstruction, uvula midline. Mucous membranes moist. Neck: Trachea midline, no thyromegaly or masses palpated, and no cervical lymphadenopathy. Supple, full range of motion without nuchal rigidity, or vertebral point tenderness. No Meningismus. Chest/axilla: Normal chest wall appearance and motion. Nontender with no deformity. No lesions are appreciated. Cardiovascular: Regular rate and rhythm with a normal S1 and S2. No gallops, murmurs, or rubs. Normal PMI, no JVD. No pulse deficits. Respiratory: Lungs have equal breath sounds bilaterally, clear to auscultation and percussion. No rales, rhonchi or wheezes noted. No increased work of breathing, no retractions or nasal flaring. Abdomen/GI: Soft, non-tender, with normal bowel sounds. No distension or tympany. No guarding or rebound. No evidence of tenderness throughout. Back: No spinal tenderness. No costovertebral tenderness. Full range of motion. Skin: Warm, dry with normal turgor. Normal color with no rashes, no lesions, and no evidence of cellulitis. MS/ Extremity: Pulses equal, no cyanosis. Neurovascular intact. Full, normal range of motion. Neuro: Awake and alert, GCS 15, oriented to person, place, time, and situation. Cranial nerves II-XII grossly intact. Motor strength 5/5 in all extremities. Sensory grossly intact. Cerebellar exam normal. Normal gait. Psych: Awake, alert, with orientation to person, place and time. Behavior, mood, and affect are within normal limits. Vital Signs: 18:23 Pulse 88; Resp 18; Temp 97.1(TE); Pulse Ox 99% ; Weight 64.41 kg; Height 5 ft. 0 in. ; cm10 18:25 BP 159 / 82; cm10 21:40 BP 170 / 76; Pulse 82; Resp 17; Pulse Ox 98% ; Pain 0/10; vc1 18:23 Body Mass Index 27.73 (64.41 kg, 152.4 cm) cm10 21:40 Pain Scale: Adult vc1 MDM: 18:26 Patient medically screened. cp3 21:38 Differential diagnosis: generalized weakness, hypovolemia, vertigo. Data reviewed: 3 vital signs, nurses notes, lab test result(s), EKG, radiologic studies. Consideration of Admission/Observation Escalation of care including admission/observation considered. I considered the following discharge prescriptions or medication management in the emergency department Medications were administered in the Emergency Department. See MAR. Independent interpretation of the following test(s) in the Emergency Department telemetry monitor: ekg interpreted by mn- rate 88, sinus rhythm, no evidence of acute mi. Response to treatment: the patient's symptoms have resolved after treatment. 03/31 18:59 Order name: Basic Metabolic Panel; Complete Time: 21:02 cp3 03/31 18:59 Order name: CBC with Diff; Complete Time: 21:02 cp3 03/31 18:59 Order name: LFT's; Complete Time: 21:02 cp3 03/31 18:59 Order name: NT PRO-BNP; Complete Time: 21:02 cp3 03/31 18:59 Order name: PT-INR; Complete Time: 21:02 cp3 03/31 18:59 Order name: Troponin HS; Complete Time: 21:02 cp3 03/31 18:59 Order name: XRAY Chest (1 view); Complete Time: 20:35 cp3 03/31 18:59 Order name: EKG; Complete Time: 19:00 cp3 03/31 18:59 Order name: Cardiac monitoring; Complete Time: 21:43 cp3 03/31 18:59 Order name: EKG - Nurse/Tech; Complete Time: 20:32 cp3 03/31 18:59 Order name: IV Saline Lock; Complete Time: 20:32 cp3 03/31 18:59 Order name: Labs collected and sent; Complete Time: 20:32 cp3 03/31 18:59 Order name: O2 Per Protocol; Complete Time: 20:32 cp3 03/31 18:59 Order name: O2 Sat Monitoring; Complete Time: 20:32 cp3 Administered Medications: 21:11 CANCELLED (wrong order): ns0.45 % 1000 ml IV at 125 ml/hr continuous cp3 21:43 Not Given (Patient Refused): ns 0.9% 1000 ml IV at 1000 ml once vc1 Disposition Summary: 03/31/23 21:24 Discharge Ordered Notes: Location: Home cp3 Condition: Stable cp3 Diagnosis - Dizziness and giddiness cp3 - Headache cp3 Discharge Instructions: - Discharge Summary Sheet cp3 - Dizziness cp3 - General Headache Without Cause cp3 Forms: - Medication Reconciliation Form cp3 - Thank You Letter cp3 - Antibiotic Education cp3 - Prescription Opioid Use cp3 - Patient Portal Instructions cp3 - Leadership Thank You Letter cp3 Prescriptions: - Meclizine 25 mg Oral Tablet - take 1 tablet ORAL route every 8 hours As needed; 30 tablet; Refills: 0, cp3 Product Selection Permitted - Zofran 4 mg Oral Tablet - take 1 tablet ORAL route every 12 hours As needed; 6 tablet; Refills: 0, cp3 Product Selection Permitted Signatures: Dispatcher [employer] Lizandro Lam MD MD cp3 Ainsley Ortega RN RN cm10 Jocelyn Butler RN vc1 Corrections: (The following items were deleted from the chart) 21:11 18:59 NS IV 0.45 % 1000 ml IV at 125 ml/hr continuous ordered. cp3 cp3
[2023-03-31 22:26] VITALS: TEMP 97.1
[2023-03-31 22:29] VITALS: BP 170/76; O2SAT 98
== END 2023-03-31 21:51 | disposition home or self-care (01) ==
LOC: ER 18:15
DX: R42 Dizziness and giddiness (principal); R51.9 Headache, unspecified; I10 Essential (primary) hypertension; Z88.5 Allergy status to narcotic agent; Z85.038 Personal history of other malignant neoplasm of large intestine
CPT/HCPCS: 36415; 71045; 80048; 80076; 83880; 84484; 85025; 85610; 93005; 99284

== ENCOUNTER 2024-10-03 06:32 | Day surgery (SDC) | payer OTHER ==
[2024-09-30 10:54] LABS: Absolute Eosinophils 0.2 K/uL (0-0.5); Absolute Lymphocytes (CBC) 1.3 K/uL (0.7-4.9); Absolute Monocytes 0.5 K/uL (0.1-1.3); Absolute Neutrophil 2.4 K/uL (1.8-8.0); Basophils % 0.9 % (0-1.3); Eosinophils % 3.7 % (0-4.4); Hematocrit 31.1 % (36.0-45.0); Hemoglobin 10.5 g/dL (12.0-15.0); Lymphocytes % 29.1 % (15.3-44.8); MCH 33.2 pg (27.0-35.0); MCV 97.9 fL (80-100); MPV 9.4 fL (7.6-11.3); Monocytes % 11.2 % (3.3-12.3); Neutrophils % 55.1 % (41.7-73.7); Nucleated Red Blood Cells % 0.1 % (0-0); Platelets 173 thou/uL (152-406); RBC Red Blood Cell Count 3.17 M/uL (3.86-4.86); Red Cell Distribution Width 14.2 % (12.1-15.2)
[2024-09-30 11:02] LABS: PT Prothrombin Time 15.3 SECONDS (10-13.0); PTT, Activated Partial Thromb 37.8 SECONDS (27.2-37.4); Protime INR 1.36
[2024-09-30 11:04] LABS: Anion Gap 10.6 mEq/L (5.0-15.0); Potassium 4.6 mEq/L (3.5-5.1)
--- NOTE | 2024-09-30 12:02 | EKG ---
Test Date: 2024-09-30 Test Time: 10:32:20 Lump Maker: KIERAN MEASUREMENT RESULTS: Intervals: Rate: 61 NM: 196 QRSD: 78 QT: 404 QTc: 406 [place]: P: 49 NM: 196 QRS: -23 T: 52 INTERPRETIVE STATEMENTS: Normal sinus rhythm Low voltage QRS Cannot rule out Anteroseptal infarct, age undetermined Abnormal ECG Compared to ECG 07/31/2023 22:58:20 No significant changes Electronically Signed On 09-30-24 12:01:30 CDT by Mateusz Izquierdo
[2024-10-03] MEDS ORDERED: Ringers Lactate 1,000 ML IV ONE (07:01)
[2024-10-03] MEDS ORDERED: SILVER NITRATE 1 APPL TOP ONE (08:33)
[2024-10-03] MEDS ORDERED: LIDOCAINE 2% MPF 5 ML VIAL ONE (08:59)
[2024-10-03] MEDS ORDERED: dexAMETHasone 4 MG/ML VIAL ONE ×2 (08:59→09:17)
[2024-10-03] MEDS ORDERED: ONDANSETRON 4 MG/2 ML VIAL ONE (08:59)
[2024-10-03] MEDS ORDERED: propofoL 200 MG/20 ML VIAL IV ONE (08:59)
[2024-10-03] MEDS ORDERED: FENTANYL CITR 100 MCG/2 ML ONE (09:00)
[2024-10-03] MEDS ORDERED: EPHEDRINE SULF 50 MG/ML VIAL ONE (09:19)
[2024-10-03] MEDS: LIDOCAINE HCL/EPINEPHRINE 20 ML MDV ONE (09:37)
[2024-10-03 12:08] VITALS: BP 174/61; TEMP 97.9; O2SAT 99
--- NOTE | 2024-10-03 20:24 | OP ---
Date of Procedure: 10/03/2024 Surgeon: Meka Bolivar MD Preoperative Diagnoses: Postmenopausal bleeding, endometrial thickening. Postoperative Diagnoses: Postmenopausal bleeding, endometrial thickening. Procedures Performed: Diagnostic hysteroscopy, dilation and curettage. Anesthesia: General with LMA. Specimens: Endometrial curettings. Complications: No complications. Drains: No drains. Condition: Stable. Findings: Very posterior cervix that was stenotic, significant scarring in the posterior vaginal wal l pulling the cervix to the posterior aspect significantly and the posterior canal is also shortened. 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 So, it was a difficult exam. The endometria l canal was examined with the hysteroscope. Both tubal ostia were visualized. Pale lining was noted . No lesions or mass inside. Endometrial curette was attempted, I suspected that this is probably o nly endocervical curettings, therefore used a Pipelle to get the endometrial sample. 2 passes were t aken and all the samples from the curette and the Pipelle were sent to pathology. Indications: The patient is an 83-year-old with postmenopausal bleeding. Transvaginal ultrasound owed an endometrial thickening of 5.5 cm. The patient is on Eliquis for arterial disease and occlusi on and stents. 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 She was attempted to blakely ve hysteroscopy in the office, but there was no visualization and ability for me to move the cervix a nd therefore I could not even canalize the cervix, so due to the cervical stenosis, consented for the hospital-based procedure. Description Of Procedure: She was a re-consented in the preoperative area and brought to the OR. Som ferreira was placed in supine fashion on the operating table. General anesthesia with LMA was given. She w as placed in a dorsal lithotomy position. Vulva and vagina were prepped with Betadine and draped in a sterile fashion. Then, 2 speculums separately were placed in the anterior and posterior wall and a nterior lip of the cervix was held with an Allis clamp and carefully with a tenaculum re-adjusted so I could grasp it in a secure fashion and then the diagnostic hysteroscope was passed through the cerv ical canal into the uterine cavity. The endometrium appeared to be pale. No intracavitary masses or polyps. The scope was removed after visualizing both tubal ostia. Once the scope was removed, endo metrial curettings were attempted with a 0 curette, but there was extremely scant tissue and therefor e Pipelle was taken and 2 passes were taken and all this tissue was sent for permanent pathology. Al l the instruments were removed. Instrument, needle, and sponge counts were correct at the end of the case. The patient was recovered from anesthesia and taken to PACU in stable condition. She will fo llow up in the office in 1 week for pathology results. I suspect the pathology to be likely benign b ased on the findings noted during the hysteroscopy. TIFFANY/TATI Voice ID: [id number] Report ID: [id number]
== END 2024-10-03 11:51 | disposition home or self-care (01) ==
LOC: OR 06:32
PROVIDERS: ATTEND Obstetrics & Gynecology
PROC: 0UDB8ZX Extraction of Endometrium, Via Natural or Artificial Opening Endoscopic, Diagnostic (ICD-10-PCS; principal; 2024-10-03 09:00)
DX: N95.0 Postmenopausal bleeding (principal); R93.89 Abnormal findings on diagnostic imaging of other specified body structures
CPT/HCPCS: 93005; 85025; 80048; 36415; 85610; 88305; 85730; 58558; J2704; J1100 ×2; J2003; J3010; J2405; J7120